=== PATIENT | female | born 1980 | race African-American/Black ===

== ENCOUNTER 2016-11-27 23:40 | Inpatient (IN) ==
[2016-11-28] MEDS ORDERED: ONDANSETRON 4 MG/2 ML VIAL IV STA (00:04)
[2016-11-28] MEDS ORDERED: FUROSEMIDE 100 MG/10 ML VIAL IV STA (00:04)
[2016-11-28] MEDS ORDERED: ALBUTEROL/IPRATROPIUM 3 ML NEB RESP TX STA (00:04)
--- NOTE | 2016-11-28 00:07 | Emergency Department Note ---
Arrival - Arrival Chief Complaint: Shortness of Breath Stated Complaint: sob ED Nursing Triage Note: TO ER WITH COMPLAINTS OF SHORTNESS OF BREATH FOR 2-3 WEEKS. PATIENT WAS SEEN BY PRIMARY DR WHEN SOB BEGAN AND JUST CHANGED HER MEDICATIONS. PATIENT REPORTS HAVING EDEMA IN BLE THAT STARTED 2-3 WEEKS AGO WELL. PATIENT HAS NOT NOTIFIED MD THAT SYMPTOMS REMAINED SINCE OFFICE VISIT AND MEDICATION CHANGE. Mode of Arrival: Wheelchair Limitations: No Limitations Source: Patient Time Seen by Provider: 11/28/16 00:04 - History of Present Illness HPI Narrative: This 36-year-old black female with a history of cardiomyopathy with ejection fraction 10% as well as an ICD presents with 3 weeks of progressive dyspnea on exertion and at rest associated with some chest tightness as well as orthopnea, PND, and 2+ pedal edema. The patient denies any nausea, vomiting, or diaphoresis in association with this. She has been seen by Dr. Erickson in the past but currently sees her local physician for these problems. At this time she appears in no acute medical distress. Onset (ago): week(s) (Patient presents 3 weeks post onset of symptom) Date of Last Menstrual Period: HYST Allergies/Adverse Reactions: Allergies Allergy/AdvReac Type Severity Reaction Status Date / Time No Known Allergies Allergy Verified 11/27/16 23:52 Home Medications: Home Medications Medication Instructions Recorded Confirmed Type Insulin Detemir [Levemir FlexPen] 35 unit SUBCUT TID 11/18/14 08/16/16 History Sacubitril/Valsartan [Entresto 24 1 each PO BID #60 tablet 07/17/16 08/16/16 Rx mg-26 mg Tablet] Amitriptyline [Elavil] 10 mg PO Q6H #12 tablet 08/16/16 Rx Digoxin Tab [Lanoxin Tab] 0.125 mg PO DAILY@1300 #30 tablet 08/16/16 Rx Furosemide [Lasix] 40 mg PO BID #60 tablet 08/16/16 Rx Metoprolol Tartrate Tab [Lopressor 100 mg PO BID #60 tablet 08/16/16 Rx Tab] Promethazine Tab [Phenergan Tab] 25 mg PO Q6H #12 tablet 08/16/16 Rx Spironolactone [Aldactone] 25 mg PO BID #60 tablet 08/16/16 Rx Review of System - Review of System 12 point system: reviewed and no additional remarkable complaints except as stated - Review of System Constitutional: Present: as per HPI Respiratory: Present: as per HPI Cardiovascular: Present: as per HPI Gastrointestinal: Present: as per HPI Medical,Surgical,& Family Hx - Medical History Cardio: History of: CHF (NICM systolic and diastolic HF NYHA III), Hypertension , Pacemaker, Cardiovascular Problems (Nonischemic cardiomyopathy with EF of 10% . Patient has ICD.) Psychological: History of: Psychiatric/Substance Abuse Tx Endocrine: History of: Diabetes Mellitus (IDDM), Endocrine Problems (Morbid exogenous obesity) Respiratory: History of: Obstructive Sleep Apnea Gastrointestinal: History of: Bowel Obstruction Other: History of: Miscellaneous Medical Problems - Surgical History Cardiac Surgeries: Sugical HX of: Cardiac Catheterization (no coronary artery disease at the time of establishing the diagnosis of CM), Internal Defibrillator (POULTRY PICKER-D) Neurologic Surgeries: Patient denies: Neurologic Surgery Abdominal Surgeries: Surgical HX of: Abdominal Surgery Reproductive Surgeries: Surgical HX of;: Section, Hysterectomy (partial ) Patient denies;: Genitourinary Surgery - Family History Family History: Reports;: Family Diabetes, Family Hypertension - Social History Smoking Status: Smoker, status unknown Frequency of Alcohol Use: None Type of Drug Use: None Exam Physical Examination: GENERAL: Obese black female in no acute distress. HEENT: Normocephalic. No trauma. Moist mucous membranes. EOMI. PERRLA. ENT NML NECK: Supple. No adenopathy. CARDIAC: Regular. No murmurs. Heart rate 102 CHEST: Rare bibasilar rale. No respiratory distress. O2 sat 98% ABDOMEN: Soft. Nontender. Active bowel sounds. EXTREMITIES: No trauma. Normal ROM. 2+ pedal edema. SKIN: No diaphoresis. No rash. NEURO: Alert. Neuro intact no focal deficits. Vital Signs: Vital Signs Temperature 98.1 F 11/27/16 23:43 Pulse Rate 100 H 11/28/16 01:07 Respiratory Rate 24 11/28/16 01:07 Blood Pressure 137/98 11/27/16 23:43 O2 Sat by Pulse Oximetry 100 11/28/16 01:07 Course - Reevaluation(s) Reevaluation #1: Discussed with patient the need for hospitalization for stabilization of cardiac condition. - Consultations Consultation #1: Discussed with hospitalist service who will admit for further evaluation treatment. Results - Labs CBC & BMP: 11/28/16 00:23 11/28/16 00:23 Labs: Reviewed the laboratory and noted the gross normality. - Impressions EKG: Sinus tachycardia at 104 with normal VT interval and right bundle branch with left and right atrial enlargement. Nonspecific ST changes without acute injury pattern noted. - Diagnostic Findings Procedure: Chest x-ray: image reviewed by me, report reviewed by me (Massive cardiomegaly with ICD device over left chest) Disposition Clinical Impression: Congestive heart failure, Cardiomyopathy Case discussed with: patient Disposition: Still a Patient Condition: Guarded Time of Disposition: 01:12
[2016-11-28] MEDS ORDERED: FUROSEMIDE 40 MG/4 ML VIAL ONE (00:36)
[2016-11-28] MEDS ORDERED: ONDANSETRON 4 MG/2 ML VIAL ONE (00:36)
[2016-11-28 00:52] LABS: INR 1.2; PT Patient Result 12.4 SECS; Partial Thromboplastin Time 27.1 SECS (0-40)
[2016-11-28 00:53] LABS: Basophils % 0.8 % (0.0-0.8); Eosinophils # 0.1 10*3/uL (0.0-0.87); Eosinophils % 2.5 % (0.00-10.9); Hematocrit 39.6 VOL% (35.7-47.0); Hemoglobin 13.3 GM/DL (12.0-16.0); Immature Granulocytes % 0.6 %; Immature Granulocytes Absolute 0.02 #; Lymphocytes # 1.7 10*3/uL (1.4-4.0); Mean Corpuscular HGB Conc 33.6 GM/DL (32-36); Mean Corpuscular Hemoglobin 29 PG (27-34); Mean Corpuscular Volume 86.7 FL (87-102); Mean Platelet Volume 10.6 FL (9.6-12.0); Monocytes # 0.4 10*3/uL (0.11-0.8); Monocytes % 10.6 % (1.7-12.7); Neutrophils # 1.3 10*3/uL (1.4-7.4); Neutrophils % 37.5 % (38.7-73.9); Platelet Count 140 T/CUMM (130-400); Red Blood Count 4.57 MC/CUMM (3.8-5.5); Red Cell Distribution Width 16.1 % (9.3-17.3); White Blood Count 3.6 T/CUMM (4-12)
[2016-11-28 01:09] LABS: Alanine Aminotransferase 24 U/L (13-56); Albumin 2.8 G/DL (3.4-5.0); Alkaline Phosphatase 106 U/L (45-117); Aspartate Amino Transferase 26 U/L (0-37); Blood Urea Nitrogen 15 MG/DL (7-18); Glucose 107 MG/DL (74-106); Osmolality,Calculated 281.3 MOS/KG (273-304); Potassium 3.9 MMOL/L (3.5-5.1); Sodium 141 MMOL/L (136-145); Total Protein 6.3 G/DL (6.4-8.3); Troponin I Only 0.021 NG/ML (0.00-0.045)
[2016-11-28 01:27] LABS: Apearance,Urine CLEAR (Clear); Bacteria,Urine Occasional /HPF (Few); Bilirubin,Urine Negative (Negative); Blood, Urine Negative (Negative); Glucose,Urine (UA) Negative (Negative); Ketones,Urine Negative (Negative); Mucus,Urine Occasional /LPF (Occasional); Nitrite,Urine Negative (Negative); Protein,Urine 100 MG/DL; RBC,Urine <1 /HPF (0-4); Squamous Epithelial Cell,Urine Occasional /HPF (0-10); Urine Color Yellow (Yellow); Urine Specific Gravity 1.011 (1.001-1.035); Urine Urobilinogen < 2.0 EU/DL (0.2-1.0); WBC,Urine 3 /HPF (0-6)
[2016-11-28 01:31] LABS: Barbiturates Screen,Urine Negative (Negative); Benzodiazepines Screen,Urine Negative (Negative); Cannabinoid Screen,Urine Negative (Negative); Opiate Screen,Urine Negative (Negative); Phencyclidine Screen,Urine Negative (Negative)
[2016-11-28] MEDS ORDERED: MAGNESIUM SULF RIDER 2 GM in PREMIX 1 EACH IV PRN (01:41)
[2016-11-28] MEDS ORDERED: MAGNESIUM SULF RIDER 4 GM in PREMIX 1 EACH IV PRN (01:41)
[2016-11-28] MEDS ORDERED: ONDANSETRON 4 MG/2 ML VIAL IV PRN (01:41)
[2016-11-28 01:43] LABS: Eosinophils 3 % (0-10); Lymphocytes 48 % (20-55); Segmented Neutrophils 36 % (50-85); Total Cells Counted 100
[2016-11-28 01:44] LABS: Platelet Estimate Normal
[2016-11-28] MEDS ORDERED: DEXTROSE 50% 25 GM/50 ML SYRINGE IV PRN (01:59)
[2016-11-28] MEDS ORDERED: GLUCAGON 1 MG VIAL IM PRN (01:59)
--- NOTE | 2016-11-28 02:12 | Hospitalist History & Physical ---
Assessment and Plan (1) Diabetes mellitus Status: Chronic Current Visit: No Qualifiers: Diabetes mellitus type: type 2 Diabetes mellitus complication status: without complication (2) H/O medication noncompliance Status: Chronic Current Visit: No (3) HTN (hypertension) Status: Chronic Current Visit: No Qualifiers: Hypertension type: essential hypertension Qualified Code(s): I10 - Essential (primary) hypertension (4) Nonischemic cardiomyopathy Status: Chronic Current Visit: No (5) Obesity (BMI 35.0-39.9 without comorbidity) Status: Chronic Current Visit: No (6) Presence of automatic (implantable) cardiac defibrillator Status: Chronic Assessment and plan: Patient is only on 2 medications plus insulin. This does not seem plausible given her bad cardiomyopathy. We will get a cis consult. They can get Dr. Erickson's notes and see what medications this patient is supposed to be on. I am going to continue with IV Lasix and monitor her labs. Hopefully we can get the patient some symptomatic relief. Current Visit: No History of Present Illness Chief complaint: Shortness of breath History of present illness: Ms. Espinal is a 36 year old female with past medical history significant for cardiomyopathy with an ejection fraction of 10% hypertension and diabetes who presents to our ER [facility]. Patient reports that she has become short of breath with the least exertion. She reports that this is on her normal state. She has PND symptoms routinely. She has not been able to sleep. She follows up with Dr. Erickson. And when she is saw him last she stated he did not renew a lot of her medications. She is only on 2 medications and insulin. I believe there is some confusion going on with her medications and could be contributing to her symptoms. Home Medications Medication Instructions Recorded Confirmed Type Sacubitril/Valsartan [Entresto 24 25 mg PO BID 11/28/16 11/28/16 History mg-26 mg Tablet] hydrALAZINE TAB [Apresoline Tab] 25 mg PO BID 11/28/16 11/28/16 History Allergies Allergy/AdvReac Type Severity Reaction Status Date / Time No Known Allergies Allergy Verified 11/27/16 23:52 Medical,Surgical,& Family Hx - Medical History Cardio: History of: CHF (NICM systolic and diastolic HF NYHA III), Hypertension , Pacemaker, Cardiovascular Problems (Nonischemic cardiomyopathy with EF of 10% . Patient has ICD.) Psychological: History of: Psychiatric/Substance Abuse Tx Endocrine: History of: Diabetes Mellitus (IDDM), Endocrine Problems (Morbid exogenous obesity) Respiratory: History of: Obstructive Sleep Apnea Gastrointestinal: History of: Bowel Obstruction Other: History of: Miscellaneous Medical Problems - Surgical History Cardiac Surgeries: Sugical HX of: Cardiac Catheterization (no coronary artery disease at the time of establishing the diagnosis of CM), Internal Defibrillator (TAPE DUPLICATOR-D) Neurologic Surgeries: Patient denies: Neurologic Surgery Abdominal Surgeries: Surgical HX of: Abdominal Surgery Reproductive Surgeries: Surgical HX of;: Section, Hysterectomy (partial ) Patient denies;: Genitourinary Surgery - Family History Family History: Reports;: Family Diabetes, Family Hypertension - Social History Smoking Status: Smoker, status unknown Frequency of Alcohol Use: None Type of Drug Use: None 12 point system: reviewed and no additional remarkable complaints except as stated Exam - Constitutional Vitals: Period Temp Pulse Resp BP Sys/Jaimes Pulse Ox Last 24 Hr 98.1 F-98.1 F 100-104 19-24 137-137/98-98 98-100 General appearance: over weight - Head Head exam: Present: normal inspection - Eye Eye exam: Present: EOMI Pupils: Present: ROSEMARY - ENT ENT exam: Present: normal exam - Neck Neck exam: Present: normal inspection - Respiratory Respiratory exam: Present: rales (Occasional) - Cardiovascular Cardiovascular exam: Present: regular rate and rhythm - GI/Abdominal GI/Abdominal exam: Present: normal bowel sounds - Extremities Exam Extremities exam: Present: edema - Back Exam Back exam: Present: normal inspection - Neurological Exam Neurological exam: Present: alert, oriented X3 - Psychiatric Psychiatric exam: Present: normal affect Results - Labs CBC & BMP: 11/28/16 00:23 11/28/16 00:23
--- NOTE | 2016-11-28 06:46 | XRay Report ---
Exam: XR chest 1V portable Date: 11/28/2016 12:04 AM Indication: Shortness of breath Comparison: 08/16/2016 Technical: AP portable Findings: Cardiomegaly is present with a cardiac pacing device with implantable defibrillator leads with atrial ventricular and coronary sinus lead suspected. No pneumothorax. Low volume left effusion cannot be totally excluded. Bony structures are intact. Impression: 1. Dilated cardiomyopathy with probable component of low volume left effusion and cardiac implantable defibrillator pacing device from a left-sided approach. Overall findings appear similar to previous study PROCEDURE INTERPRETED AT [facility] DEPARTMENT OF RADIOLOGY Final Report Signed by: Dr. Avery Santana
[2016-11-28 07:43] LABS: Basophils % 0.8 % (0.0-0.8); Eosinophils # 0.1 10*3/uL (0.0-0.87); Eosinophils % 1.4 % (0.00-10.9); Hematocrit 39.7 VOL% (35.7-47.0); Immature Granulocytes % 0.3 %; Immature Granulocytes Absolute 0.01 #; Lymphocytes % 55.6 % (21.3-54.2); Mean Corpuscular HGB Conc 32.7 GM/DL (32-36); Mean Corpuscular Hemoglobin 29 PG (27-34); Mean Platelet Volume 10.5 FL (9.6-12.0); Monocytes # 0.4 10*3/uL (0.11-0.8); Monocytes % 12.1 % (1.7-12.7); Neutrophils # 1.1 10*3/uL (1.4-7.4); Neutrophils % 29.8 % (38.7-73.9); Platelet Count 128 T/CUMM (130-400); Red Blood Count 4.51 MC/CUMM (3.8-5.5); White Blood Count 3.7 T/CUMM (4-12)
--- NOTE | 2016-11-28 07:59 | EKG Report ---
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
[2016-11-28 08:10] LABS: Hypochromasia Slight
[2016-11-28 08:17] LABS: Albumin 2.7 G/DL (3.4-5.0); Osmolality,Calculated 284.1 MOS/KG (273-304); Total Protein 6.1 G/DL (6.4-8.3)
[2016-11-28 08:25] LABS: Troponin I Only 0.018 NG/ML (0.00-0.045)
[2016-11-28] MEDS: FUROSEMIDE 40 MG/4 ML VIAL IV SCH ×2 (09:50→16:59)
[2016-11-28] MEDS: ACETAMINOPHEN 325 MG TABLET PO PRN ×2 (09:50→15:43)
[2016-11-28] MEDS: ENOXAPARIN 40 MG/0.4 ML SYRINGE SUBCUT SCH (09:50)
[2016-11-28] MEDS: PANTOPRAZOLE 40 MG TABLET PO SCH (09:51)
[2016-11-28] MEDS: hydrALAZINE 25 MG TABLET PO SCH ×2 (09:51→20:58)
[2016-11-28] MEDS: INSULIN REGULAR 100 UNIT/ML SUBCUT SCH ×4 (09:52→21:41)
--- NOTE | 2016-11-28 10:07 | Cardiology Consult Note ---
<Keren Davey - Last Filed: 11/28/16 12:42> Assessment and Plan - Time spent with patient Time spent with patient: Greater than 30 minutes (1) CHF (congestive heart failure), NYHA class III Status: Acute Assessment and plan: See plan of care below Current Visit: Yes Qualifiers: Congestive heart failure type: combined Congestive heart failure chronicity : acute on chronic Qualified Code(s): - (2) Diabetes mellitus Status: Chronic Assessment and plan: See plan of care below Current Visit: No Qualifiers: Diabetes mellitus type: type 2 Diabetes mellitus complication status: without complication (3) HTN (hypertension) Status: Chronic Assessment and plan: See plan of care below Current Visit: No Qualifiers: Hypertension type: essential hypertension Qualified Code(s): I10 - Essential (primary) hypertension (4) Nonischemic cardiomyopathy Status: Chronic Assessment and plan: The plan of care below Current Visit: Yes (5) Biventricular implantable cardioverter-defibrillator in situ Status: Chronic Assessment and plan: See plan of care below Current Visit: No (6) H/O medication noncompliance Status: Chronic Current Visit: Yes (7) Obesity (BMI 35.0-39.9 without comorbidity) Status: Chronic Assessment and plan: See plan of care below Current Visit: No History of Present Illness - Data of Consult Patient: known to practice within the last 3 years - Consult Narrative Reason for consult: worsened dyspnea in patient with known severe cardiomyopathy 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 Espinal is a 36 year old female routinely followed by Dr. Vasquez. The patient presented to the emergency room last night with complaints of worsening shortness of breath. Cardiac risk factors are significant for hypertension, diabetes, obesity, and history of smoking. The patient does state that she did quit smoking about 1 year ago. Patient has a history of nonischemic cardiomyopathy (most recent EF 15%), obstructive sleep apnea, automatic implantable cardiac defibrillator and noncompliance with medical treatment. Patient did see Dr. Vasquez on November 13, 2016, and medication changes are noted. The patient states that she has been out of her digoxin for 3-4 days. At that clinic visit the patient was instructed to stop taking lisinopril and start Entresto. The patient states that she has been compliant with these medication changes. The ICD was interrogated at that visit. The patient remains a NYHA class III cardiomyopathy. Most recent echo was done June 2016. The study revealed left ventricular ejection fraction of 10% with severe global hypokinesis was noted. Grade 3-4 diastolic dysfunction with four-chamber cardiac enlargement is noted. Patient presented to the emergency room during the night with complaints of shortness of breath that were more severe than her normal. She reports that her breathing has progressively worsened over the last 2 weeks. She cannot identify aggravating or alleviating factors. She also reports bilateral lower extremity edema. Patient notes that she has not slept in several nights due to not being able to catch her breath. She does report that she often awakens during the night gasping for air. She does not use a CPAP. Patient denies chest pain, she does report some chest heaviness when her dyspnea is severe. She denies heart palpitations or heart racing. Her BNP upon arrival to the ER was 932 chest x-ray reveals dilated cardiomyopathy with cardiac implantable defibrillator pacing device on the left side. Troponin 0.018 and CK-MB 1.8. EKG reveals a paced rhythm with no ST changes. The patient did receive 80 mg of Lasix IV in the ER, and will be continued on 40 mg of Lasix IV twice daily. The patient has been admitted to the hospitalist service on telemetry, and cardiology has been consulted for further recommendations and treatment regarding the patient's severe nonischemic cardiomyopathy. The patient was seen and examined today by myself and Dr. Rhonda Brooks on telemetry unit. Patient was resting comfortably in bed in no acute distress. Patient was not requiring oxygen. Patient denying complaints of chest pain heaviness or shortness of breath at that time. We will continue IV Lasix, check a d-dimer, obtain bilateral lower extremity Doppler, and repeat echocardiogram. ASSESSMENT/PLAN: 1. CHF- Echocardiogram pending. Lasix 80 mg IV given in ER. Continue 40 mg Lasix IV twice daily. D-dimer negative and bilateral lower extremity venous Doppler pending from bilateral lower extremity edema. 2. Diabetes- She has been started on Accu-Cheks with sliding scale insulin. 3. Hypertension- Continue home meds. Will continue to monitor and adjust accordingly throughout hospital stay. 4. Nonischemic cardiomyopathy-most recent ejection fraction 10%. Echocardiogram pending. 5. Biventricular implantable cardioverter-defibrillator in situ: Last interrogation done November 13, 2016 revealed appropriate function. 6. History of medication noncompliance- Chronic. Educate patient. 7. Obesity- Chronic. Weight loss encouraged with dietary restriction. CC: Lorin Salinas MD - Home Medications and Allergies Home Medications: Home Medications Medication Instructions Recorded Confirmed Type Digoxin 250 mcg PO DAILY 11/28/16 11/28/16 History Furosemide Tab [Lasix Tab] 40 mg PO BID DIURETIC 11/28/16 11/28/16 History Insulin Detemir [Levemir] 30 unit SUBCUT BID 11/28/16 11/28/16 History Lisinopril 40 mg PO DAILY 11/28/16 11/28/16 History Sacubitril/Valsartan [Entresto 24 1 tablet PO BID 11/28/16 11/28/16 History mg-26 mg Tablet] Spironolactone [Aldactone] 25 mg PO DAILY 11/28/16 11/28/16 History hydrALAZINE TAB [Apresoline Tab] 25 mg PO BID 11/28/16 11/28/16 History Allergies/Adverse Reactions: Allergies Allergy/AdvReac Type Severity Reaction Status Date / Time No Known Allergies Allergy Verified 11/27/16 23:52 - Constitutional Constitutional: Present: as per HPI - EENT Eyes: Present: as per HPI Ears: Present: as per HPI Nose, mouth and throat: Present: as per HPI - Cardiovascular Cardiovascular: Present: dyspnea on exertion, edema - Respiratory Respiratory: Present: cough, dyspnea on exertion, wheezing - Gastrointestinal Gastrointestinal: Present: constipation. Absent: abdominal pain, change in bowel habits, diarrhea, nausea, vomiting - Genitourinary Genitourinary: Present: as per HPI - Musculoskeletal Musculoskeletal: Present: as per HPI - Neurological Neurological: Present: dizziness. Absent: abnormal gait, frequent falls, syncope Medical,Surgical,& Family Hx - Medical History Cardio: History of: CHF (NICM systolic and diastolic HF NYHA III), Hypertension , Pacemaker, Cardiovascular Problems (Nonischemic cardiomyopathy with EF of 10% . 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 CARVER-D) Neurologic Surgeries: Patient denies: Neurologic Surgery Abdominal Surgeries: Surgical HX of: Abdominal Surgery Reproductive Surgeries: Surgical HX of;: Section, Hysterectomy (partial ) Patient denies;: Genitourinary Surgery - Family History Family History: Reports;: Family Diabetes, Family Hypertension - Social History Smoking Status: Former smoker Have you smoked in the last 12 months: No Frequency of Alcohol Use: None Type of Drug Use: None Functional capacity: independent ambulation Physical Examination Vital Signs Temp Pulse Resp BP Pulse Ox 98.1 F 104 H 20 137/98 98 11/27/16 23:43 11/27/16 23:43 11/27/16 23:43 11/27/16 23:43 11/27/16 23:43 General: Present: No Apparent Distress HEENT: Present: PERRL Cardiac: Present: Reg Rate and Rhythm, Other Lungs: Present: Bibasilar Rales, No Wheezes Abdomen: Present: Soft, Active Bowel Sounds, No Masses Skin: Present: Clear Gait: Present: Normal Gait Result/EKG - Labs CBC & BMP: 11/28/16 07:02 11/28/16 11:10 Lab Results: I have reviewed the past 24 hour labs Labs: Laboratory Results - last 24 hr 11/28/16 11/28/16 11/28/16 00:23 00:23 00:23 WBC 3.6 L RBC 4.57 Hgb 13.3 Hct 39.6 MCV 86.7 L MCH 29 MCHC 33.6 RDW 16.1 Plt Count 140 MPV 10.6 Neut % (Auto) 37.5 L Lymph % (Auto) 48.0 [place] % (Auto) 10.6 Eos % (Auto) 2.5 Baso % (Auto) 0.8 Neut # (Auto) 1.3 L Lymph # (Auto) 1.7 [place] # (Auto) 0.4 Eos # (Auto) 0.1 Baso # (Auto) 0.0 Total Counted 100 Immature Gran % 0.6 Nucleated RBC % 0.0 Immature Gran # 0.02 Segmented Neutrophils 36 L Lymphocytes 48 Monocytes 13 Eosinophils 3 Nucleated RBCs # 0.00 Platelet Estimate Normal Immature Plt Fraction 0.0 Hypochromasia Pappenheimer Bodies Contact Center Director INR 1.2 PT Patient/Control Mix 12.4 Circ Anticoag PTT 27.1 Sodium Potassium Chloride Carbon Dioxide Anion Gap BUN Creatinine GFR Calculation BUN/Creatinine Ratio Glucose Calculated Osmolality Calcium Total Bilirubin AST ALT Alkaline Phosphatase Total Creatine Kinase CK-MB (CK-2) Troponin I B-Natriuretic Peptide Total Protein Albumin Globulin Albumin/Globulin Ratio Urine Color Yellow Urine Appearance Clear Urine pH 5.0 Ur Specific [place] 1.011 Urine Protein 100 Urine Glucose (UA) Negative Urine Ketones Negative Urine Blood Negative Urine Nitrate Negative Urine Bilirubin Negative Urine Urobilinogen < 2.0 H Urine Leukocytes Negative Urine RBC <1 Urine WBC 3 Ur Squamous Epith Cells Occasional Urine Bacteria Occasional Urine Mucus Occasional Ur Culture Indicated? Not indicated Urine Opiates Screen Ur Barbiturates Screen Ur Phencyclidine Scrn U Amphetamine/Methamph U Benzodiazepines Scrn U Cocaine Metab Screen U Cannabinoids Screen 11/28/16 11/28/16 11/28/16 00:23 00:23 00:23 WBC RBC Hgb Hct MCV MCH MCHC RDW Plt Count MPV Neut % (Auto) Lymph % (Auto) [place] % (Auto) Eos % (Auto) Baso % (Auto) Neut # (Auto) Lymph # (Auto) [place] # (Auto) Eos # (Auto) Baso # (Auto) Total Counted Immature Gran % Nucleated RBC % Immature Gran # Segmented Neutrophils Lymphocytes Monocytes Eosinophils Nucleated RBCs # Platelet Estimate Immature Plt Fraction Hypochromasia Pappenheimer Bodies INR PT Patient/Control Mix Circ Anticoag PTT Sodium 141 Potassium 3.9 Chloride 108 H Carbon Dioxide 26 Anion Gap 10.9 BUN 15 Creatinine 0.80 GFR Calculation 149 BUN/Creatinine Ratio 18.00 Glucose 107 H Calculated Osmolality 281.3 Calcium 8.0 L Total Bilirubin 0.60 AST 26 ALT 24 Alkaline Phosphatase 106 Total Creatine Kinase 101 CK-MB (CK-2) 2.0 Troponin I 0.021 B-Natriuretic Peptide 932 H Total Protein 6.3 L Albumin 2.8 L Globulin 3.5 Albumin/Globulin Ratio 0.8 L Urine Color Urine Appearance Urine pH Ur Specific [place] Urine Protein Urine Glucose (UA) Urine Ketones Urine Blood Urine Nitrate Urine Bilirubin Urine Urobilinogen Urine Leukocytes Urine RBC Urine WBC Ur Squamous Epith Cells Urine Bacteria Urine Mucus Ur Culture Indicated? Urine Opiates Screen Negative Ur Barbiturates Screen Negative Ur Phencyclidine Scrn Negative U Amphetamine/Methamph Negative U Benzodiazepines Scrn Negative U Cocaine Metab Screen Negative U Cannabinoids Screen Negative 11/28/16 11/28/16 11/28/16 07:02 07:02 07:02 WBC 3.7 L RBC 4.51 Hgb 13.0 Hct 39.7 MCV 88.0 MCH 29 MCHC 32.7 RDW 16.0 Plt Count 128 L MPV 10.5 Neut % (Auto) 29.8 L Lymph % (Auto) 55.6 H [place] % (Auto) 12.1 Eos % (Auto) 1.4 Baso % (Auto) 0.8 Neut # (Auto) 1.1 L Lymph # (Auto) 2.0 [place] # (Auto) 0.4 Eos # (Auto) 0.1 Baso # (Auto) 0.0 Total Counted Immature Gran % 0.3 Nucleated RBC % 0.0 Immature Gran # 0.01 Segmented Neutrophils Lymphocytes Monocytes Eosinophils Nucleated RBCs # 0.00 Platelet Estimate Immature Plt Fraction 0.0 Hypochromasia Slight Pappenheimer Bodies INR PT Patient/Control Mix Circ Anticoag PTT Sodium 142 Potassium 4.0 Chloride 105 Carbon Dioxide 28 Anion Gap 13.0 BUN 14 Creatinine 0.90 GFR Calculation 131 BUN/Creatinine Ratio 15.00 Glucose 115 H Calculated Osmolality 284.1 Calcium 8.0 L Total Bilirubin 1.00 AST 27 ALT 21 Alkaline Phosphatase 96 Total Creatine Kinase 86 CK-MB (CK-2) 1.8 Troponin I 0.018 B-Natriuretic Peptide Total Protein 6.1 L Albumin 2.7 L Globulin 3.4 Albumin/Globulin Ratio 0.7 L Urine Color Urine Appearance Urine pH Ur Specific [place] Urine Protein Urine Glucose (UA) Urine Ketones Urine Blood Urine Nitrate Urine Bilirubin Urine Urobilinogen Urine Leukocytes Urine RBC Urine WBC Ur Squamous Epith Cells Urine Bacteria Urine Mucus Ur Culture Indicated? Urine Opiates Screen Ur Barbiturates Screen Ur Phencyclidine Scrn U Amphetamine/Methamph U Benzodiazepines Scrn U Cocaine Metab Screen U Cannabinoids Screen - Diagnostic Findings Procedure: Chest x-ray: report reviewed by me - EKG EKG results: interpreted by me, no acute changes <Rhonda Brooks - Last Filed: 11/28/16 17:35> History of Present Illness - Consult Narrative History of present illness: I have personally interviewed and evaluated the patient, reviewed the chart and discussed medical decision-making with Practitioner Petar. I have read this note and agree with her documentation here in. We evaluated the patient jointly and discussed the clinical findings and medical decision-making as described here. CC: Lorin Salinas MD Physical Examination Vital Signs Temp Pulse Resp BP Pulse Ox 98.1 F 104 H 20 137/98 98 11/27/16 23:43 11/27/16 23:43 11/27/16 23:43 11/27/16 23:43 11/27/16 23:43 Result/EKG - Labs CBC & BMP: 11/28/16 07:02 11/28/16 11:10 Labs: Laboratory Results - last 24 hr 11/28/16 11/28/16 11/28/16 00:23 00:23 00:23 WBC 3.6 L RBC 4.57 Hgb 13.3 Hct 39.6 MCV 86.7 L MCH 29 MCHC 33.6 RDW 16.1 Plt Count 140 MPV 10.6 Neut % (Auto) 37.5 L Lymph % (Auto) 48.0 [place] % (Auto) 10.6 Eos % (Auto) 2.5 Baso % (Auto) 0.8 Neut # (Auto) 1.3 L Lymph # (Auto) 1.7 [place] # (Auto) 0.4 Eos # (Auto) 0.1 Baso # (Auto) 0.0 Total Counted 100 Immature Gran % 0.6 Nucleated RBC % 0.0 Immature Gran # 0.02 Segmented Neutrophils 36 L Lymphocytes 48 Monocytes 13 Eosinophils 3 Nucleated RBCs # 0.00 Platelet Estimate Normal Immature Plt Fraction 0.0 Hypochromasia Pappenheimer Bodies Contact Center Director INR 1.2 PT Patient/Control Mix 12.4 D-Dimer, Quantitative Circ Anticoag PTT 27.1 ABG pH ABG pCO2 ABG pO2 ABG HCO3 ABG Total CO2 ABG O2 Saturation ABG Base Excess FiO2 Sodium Potassium Chloride Carbon Dioxide Anion Gap BUN Creatinine GFR Calculation BUN/Creatinine Ratio Glucose POC Glucose Hemoglobin A1c Calculated Osmolality Calcium Total Bilirubin AST ALT Alkaline Phosphatase Ammonia Total Creatine Kinase CK-MB (CK-2) Troponin I B-Natriuretic Peptide Total Protein Albumin Globulin Albumin/Globulin Ratio Urine Color Yellow Urine Appearance Clear Urine pH 5.0 Ur Specific [place] 1.011 Urine Protein 100 Urine Glucose (UA) Negative Urine Ketones Negative Urine Blood Negative Urine Nitrate Negative Urine Bilirubin Negative Urine Urobilinogen < 2.0 H Urine Leukocytes Negative Urine RBC <1 Urine WBC 3 Ur Squamous Epith Cells Occasional Urine Bacteria Occasional Urine Mucus Occasional Ur Culture Indicated? Not indicated Urine Opiates Screen Ur Barbiturates Screen Ur Phencyclidine Scrn U Amphetamine/Methamph U Benzodiazepines Scrn U Cocaine Metab Screen U Cannabinoids Screen 11/28/16 11/28/16 11/28/16 00:23 00:23 00:23 WBC RBC Hgb Hct MCV MCH MCHC RDW Plt Count MPV Neut % (Auto) Lymph % (Auto) [place] % (Auto) Eos % (Auto) Baso % (Auto) Neut # (Auto) Lymph # (Auto) [place] # (Auto) Eos # (Auto) Baso # (Auto) Total Counted Immature Gran % Nucleated RBC % Immature Gran # Segmented Neutrophils Lymphocytes Monocytes Eosinophils Nucleated RBCs # Platelet Estimate Immature Plt Fraction Hypochromasia Pappenheimer Bodies INR PT Patient/Control Mix D-Dimer, Quantitative Circ Anticoag PTT ABG pH ABG pCO2 ABG pO2 ABG HCO3 ABG Total CO2 ABG O2 Saturation ABG Base Excess FiO2 Sodium 141 Potassium 3.9 Chloride 108 H Carbon Dioxide 26 Anion Gap 10.9 BUN 15 Creatinine 0.80 GFR Calculation 149 BUN/Creatinine Ratio 18.00 Glucose 107 H POC Glucose Hemoglobin A1c Calculated Osmolality 281.3 Calcium 8.0 L Total Bilirubin 0.60 AST 26 ALT 24 Alkaline Phosphatase 106 Ammonia Total Creatine Kinase 101 CK-MB (CK-2) 2.0 Troponin I 0.021 B-Natriuretic Peptide 932 H Total Protein 6.3 L Albumin 2.8 L Globulin 3.5 Albumin/Globulin Ratio 0.8 L Urine Color Urine Appearance Urine pH Ur Specific [place] Urine Protein Urine Glucose (UA) Urine Ketones Urine Blood Urine Nitrate Urine Bilirubin Urine Urobilinogen Urine Leukocytes Urine RBC Urine WBC Ur Squamous Epith Cells Urine Bacteria Urine Mucus Ur Culture Indicated? Urine Opiates Screen Negative Ur Barbiturates Screen Negative Ur Phencyclidine Scrn Negative U Amphetamine/Methamph Negative U Benzodiazepines Scrn Negative U Cocaine Metab Screen Negative U Cannabinoids Screen Negative 11/28/16 11/28/16 11/28/16 06:59 07:02 07:02 WBC 3.7 L RBC 4.51 Hgb 13.0 Hct 39.7 MCV 88.0 MCH 29 MCHC 32.7 RDW 16.0 Plt Count 128 L MPV 10.5 Neut % (Auto) 29.8 L Lymph % (Auto) 55.6 H [place] % (Auto) 12.1 Eos % (Auto) 1.4 Baso % (Auto) 0.8 Neut # (Auto) 1.1 L Lymph # (Auto) 2.0 [place] # (Auto) 0.4 Eos # (Auto) 0.1 Baso # (Auto) 0.0 Total Counted Immature Gran % 0.3 Nucleated RBC % 0.0 Immature Gran # 0.01 Segmented Neutrophils Lymphocytes Monocytes Eosinophils Nucleated RBCs # 0.00 Platelet Estimate Immature Plt Fraction 0.0 Hypochromasia Slight Pappenheimer Bodies INR PT Patient/Control Mix D-Dimer, Quantitative Circ Anticoag PTT ABG pH ABG pCO2 ABG pO2 ABG HCO3 ABG Total CO2 ABG O2 Saturation ABG Base Excess FiO2 Sodium 142 Potassium 4.0 Chloride 105 Carbon Dioxide 28 Anion Gap 13.0 BUN 14 Creatinine 0.90 GFR Calculation 131 BUN/Creatinine Ratio 15.00 Glucose 115 H POC Glucose Hemoglobin A1c 6.6 H Calculated Osmolality 284.1 Calcium 8.0 L Total Bilirubin 1.00 AST 27 ALT 21 Alkaline Phosphatase 96 Ammonia Total Creatine Kinase CK-MB (CK-2) Troponin I B-Natriuretic Peptide Total Protein 6.1 L Albumin 2.7 L Globulin 3.4 Albumin/Globulin Ratio 0.7 L Urine Color Urine Appearance Urine pH Ur Specific [place] Urine Protein Urine Glucose (UA) Urine Ketones Urine Blood Urine Nitrate Urine Bilirubin Urine Urobilinogen Urine Leukocytes Urine RBC Urine WBC Ur Squamous Epith Cells Urine Bacteria Urine Mucus Ur Culture Indicated? Urine Opiates Screen Ur Barbiturates Screen Ur Phencyclidine Scrn U Amphetamine/Methamph U Benzodiazepines Scrn U Cocaine Metab Screen U Cannabinoids Screen 11/28/16 11/28/16 11/28/16 07:02 08:51 09:40 WBC RBC Hgb Hct MCV MCH MCHC RDW Plt Count MPV Neut % (Auto) Lymph % (Auto) [place] % (Auto) Eos % (Auto) Baso % (Auto) Neut # (Auto) Lymph # (Auto) [place] # (Auto) Eos # (Auto) Baso # (Auto) Total Counted Immature Gran % Nucleated RBC % Immature Gran # Segmented Neutrophils Lymphocytes Monocytes Eosinophils Nucleated RBCs # Platelet Estimate Immature Plt Fraction Hypochromasia Pappenheimer Bodies INR PT Patient/Control Mix D-Dimer, Quantitative Circ Anticoag PTT ABG pH 7.379 ABG pCO2 46.7 ABG pO2 86.5 ABG HCO3 25.9 ABG Total CO2 24.2 ABG O2 Saturation 95.9 ABG Base Excess 1.8 FiO2 28.00 Sodium Potassium Chloride Carbon Dioxide Anion Gap BUN Creatinine GFR Calculation BUN/Creatinine Ratio Glucose POC Glucose 169 H Hemoglobin A1c Calculated Osmolality Calcium Total Bilirubin AST ALT Alkaline Phosphatase Ammonia Total Creatine Kinase 86 CK-MB (CK-2) 1.8 Troponin I 0.018 B-Natriuretic Peptide Total Protein Albumin Globulin Albumin/Globulin Ratio Urine Color Urine Appearance Urine pH Ur Specific [place] Urine Protein Urine Glucose (UA) Urine Ketones Urine Blood Urine Nitrate Urine Bilirubin Urine Urobilinogen Urine Leukocytes Urine RBC Urine WBC Ur Squamous Epith Cells Urine Bacteria Urine Mucus Ur Culture Indicated? Urine Opiates Screen Ur Barbiturates Screen Ur Phencyclidine Scrn U Amphetamine/Methamph U Benzodiazepines Scrn U Cocaine Metab Screen U Cannabinoids Screen 11/28/16 11/28/16 11/28/16 11:10 11:10 13:06 WBC RBC Hgb Hct MCV MCH MCHC RDW Plt Count MPV Neut % (Auto) Lymph % (Auto) [place] % (Auto) Eos % (Auto) Baso % (Auto) Neut # (Auto) Lymph # (Auto) [place] # (Auto) Eos # (Auto) Baso # (Auto) Total Counted Immature Gran % Nucleated RBC % Immature Gran # Segmented Neutrophils Lymphocytes Monocytes Eosinophils Nucleated RBCs # Platelet Estimate Immature Plt Fraction Hypochromasia Pappenheimer Bodies INR PT Patient/Control Mix D-Dimer, Quantitative <= 0.5 Circ Anticoag PTT ABG pH ABG pCO2 ABG pO2 ABG HCO3 ABG Total CO2 ABG O2 Saturation ABG Base Excess FiO2 Sodium 141 Potassium 3.9 Chloride 105 Carbon Dioxide 29 Anion Gap 10.9 BUN 15 Creatinine 1.00 GFR Calculation 115 BUN/Creatinine Ratio 15.00 Glucose 126 H POC Glucose 102 Hemoglobin A1c Calculated Osmolality 283.3 Calcium 7.9 L Total Bilirubin AST ALT Alkaline Phosphatase Ammonia Total Creatine Kinase CK-MB (CK-2) Troponin I B-Natriuretic Peptide Total Protein Albumin Globulin Albumin/Globulin Ratio Urine Color Urine Appearance Urine pH Ur Specific [place] Urine Protein Urine Glucose (UA) Urine Ketones Urine Blood Urine Nitrate Urine Bilirubin Urine Urobilinogen Urine Leukocytes Urine RBC Urine WBC Ur Squamous Epith Cells Urine Bacteria Urine Mucus Ur Culture Indicated? Urine Opiates Screen Ur Barbiturates Screen Ur Phencyclidine Scrn U Amphetamine/Methamph U Benzodiazepines Scrn U Cocaine Metab Screen U Cannabinoids Screen 11/28/16 11/28/16 15:49 16:19 WBC RBC Hgb Hct MCV MCH MCHC RDW Plt Count MPV Neut % (Auto) Lymph % (Auto) [place] % (Auto) Eos % (Auto) Baso % (Auto) Neut # (Auto) Lymph # (Auto) [place] # (Auto) Eos # (Auto) Baso # (Auto) Total Counted Immature Gran % Nucleated RBC % Immature Gran # Segmented Neutrophils Lymphocytes Monocytes Eosinophils Nucleated RBCs # Platelet Estimate Immature Plt Fraction Hypochromasia Pappenheimer Bodies INR PT Patient/Control Mix D-Dimer, Quantitative Circ Anticoag PTT ABG pH ABG pCO2 ABG pO2 ABG HCO3 ABG Total CO2 ABG O2 Saturation ABG Base Excess FiO2 Sodium Potassium Chloride Carbon Dioxide Anion Gap BUN Creatinine GFR Calculation BUN/Creatinine Ratio Glucose POC Glucose 140 H Hemoglobin A1c Calculated Osmolality Calcium Total Bilirubin AST ALT Alkaline Phosphatase Ammonia 42 H Total Creatine Kinase CK-MB (CK-2) Troponin I B-Natriuretic Peptide Total Protein Albumin Globulin Albumin/Globulin Ratio Urine Color Urine Appearance Urine pH Ur Specific [place] Urine Protein Urine Glucose (UA) Urine Ketones Urine Blood Urine Nitrate Urine Bilirubin Urine Urobilinogen Urine Leukocytes Urine RBC Urine WBC Ur Squamous Epith Cells Urine Bacteria Urine Mucus Ur Culture Indicated? Urine Opiates Screen Ur Barbiturates Screen Ur Phencyclidine Scrn U Amphetamine/Methamph U Benzodiazepines Scrn U Cocaine Metab Screen U Cannabinoids Screen
[2016-11-28 10:13] LABS: ABG Base Excess 1.8 MMOL/L (-2.5-2.5); ABG HCO3 25.9 MMOL/L (20-26); ABG Oxygen Saturation 95.9 % (95-100); ABG PCO2 46.7 MM HG (35-48); ABG PH 7.379 (7.35-7.45); ABG PO2 86.5 MM HG (80-95); ABG TCO2 24.2 MMOL/L (23-27); Allen Test Positive; Pt O2 Delivery Device Room Air
[2016-11-28 11:50] LABS: Calcium 7.9 MG/DL (8.5-10.1); Osmolality,Calculated 283.3 MOS/KG (273-304); Potassium 3.9 MMOL/L (3.5-5.1)
--- NOTE | 2016-11-28 15:04 | Ultrasound Report ---
US venous doppler LE BI Indication: Bilateral leg edema. BILATERAL LOWER EXTREMITY VENOUS ULTRASOUND Comparison: None Findings: Graded grayscale compression, color Doppler and pulsed Doppler ultrasound evaluation of the venous structures performed. Normal compressibility, augmentation and color saturation is present within bilateral common femoral, superficial femoral, popliteal and proximal greater saphenous veins. Impression: No evidence of DVT either lower extremity. PROCEDURE INTERPRETED AT [facility] DEPARTMENT OF RADIOLOGY Final Report Signed by: David Beal M.D.
--- NOTE | 2016-11-28 15:26 | Hospitalist Progress Note ---
Assessment and Plan (1) Systolic and diastolic CHF, acute on chronic Status: Acute Assessment and plan: Continue Lasix 40 mg IV twice daily, added coreg, restarted sacubitril/ valsartan Current Visit: Yes (2) Diabetes mellitus Status: Chronic Assessment and plan: decrease home insulin, hgb a1c, cont isc Current Visit: No Qualifiers: Diabetes mellitus type: type 2 Diabetes mellitus complication status: without complication (3) HTN (hypertension) Status: Chronic Assessment and plan: controlled Current Visit: No Qualifiers: Hypertension type: essential hypertension Qualified Code(s): I10 - Essential (primary) hypertension (4) Nonischemic cardiomyopathy Status: Chronic Assessment and plan: ef of 10% Current Visit: Yes (5) Biventricular implantable cardioverter-defibrillator in situ Status: Chronic Current Visit: No (6) Pulmonary HTN Status: Acute Assessment and plan: pap of 53, negative for dvt, needs sleep evaluation Current Visit: Yes (7) CHARLIE (obstructive sleep apnea) Status: Acute Assessment and plan: dr. Ramos consulted. co2 not elevated on abg Current Visit: Yes Hospitalist: Subjective Interval history: patient very sleepy and has history of noncompliance. Exam - Constitutional Vitals: Period Temp Pulse Resp BP Sys/Jaimes Pulse Ox Last 24 Hr 97.4 F-98.7 F 90-107 18-24 124-137/80-98 94-100 Exam: Heart Rate-[tachy] Lungs-[diminished, not taking deep breaths] GI-[+bs soft, NT] Ext-[2+ edema] Neuro lethargic psych cannot assess General [no acute distress] Results - Labs CBC & BMP: 11/28/16 07:02 11/28/16 11:10 Lab Results: I have reviewed the past 24 hour labs - Diagnostic Findings Procedure: Chest x-ray: report reviewed by me (Dilated cardiomyopathy no excessive amount of fluid found), Ultrasound: report reviewed by me (No DVT)
[2016-11-28] MEDS: DIGOXIN 0.25 MG TABLET PO SCH (16:59)
[2016-11-28] MEDS: SPIRONOLACTONE 25 MG TABLET PO SCH (16:59)
--- NOTE | 2016-11-28 20:02 | ECHO Report ---
TeddyAngel Exam Date: 11/28/2016 11:25 Referring Physician: Technologist: angel Small ARDMS, RVT Age: 36 Ht (in): 68 Wt (lb): 275 Gender: F Exam Location: [facility] Echo Indications: Essential (primary) hypertension, Shortness of breath, Presence of automatic (implantable) cardiac defibrillator, Cardiomyopathy, unspecified, Diabetes BP: 128 / 84 HR: 97 Rhythm: Sinus Technical Quality: Fair IMPRESSIONS Severely reduced LV systolic function with regional wall motion as described below. Grade 3/4 diastolic dysfunction. Severely dilated left ventricle. Moderate right ventricular dilation with mild hypokinesis. Trace mitral regurgitation. Mild to moderate tricuspid and pulmonary regurgitation. Mild pulmonary hypertension with pulmonary artery pressure estimated at 46 mmHg. MEASUREMENTS (Male / Female) Normal Values 2D ECHO LV Diastolic Diameter PLAX 7.1 cm 4.2 - 5.9 / 3.9 - 5.3 cm LV Systolic Diameter PLAX 6.7 cm LV Fractional Shortening PLAX 4.9 % IVS Diastolic Thickness 0.9 cm 0.6 - 1.0 / 0.6 - 0.9 cm LVPW Diastolic Thickness 1.0 cm 0.6 - 1.0 / 0.6 - 0.9 cm RV Internal Dim ED PLAX 4.0 cm Aortic Root Diameter 3.5 cm LA Systolic Diameter LX 3.6 cm 3.0 - 4.0 / 2.7 - 3.8 cm DOPPLER TR Peak Velocity 301.0 cm/s TR Peak Gradient 36.2 mmHg FINDINGS Left Ventricle Severely increased left ventricular cavity size. Normal left ventricular wall thickness. Left ventricular ejection fraction is estimated at 10%. There is global hypokinesis and abnormal septal motion consistent with underlying bundle branch block. There is grade 3 diastolic dysfunction. Right Ventricle Mildly increased right ventricular size. Right Atrium The right atrium is normal in size. Left Atrium Normal size. Mitral Valve Morphologically normal mitral valve. Trace mitral valve regurgitation. Aortic Valve Morphologically normal aortic valve without significant sclerosis or stenosis. There is no aortic regurgitation. Tricuspid Valve Morphologically normal tricuspid valve. [id number] tricuspid valve regurgitation. Tricuspid regurgitation velocities suggest a PAP of 46 mmHg. Pulmonic Valve Morphologically normal pulmonic valve. [id number] pulmonary valve regurgitation. Pericardium Normal pericardium without effusion. Aorta Normal ascending aorta dimension. Rhonda Brooks MD (Electronically Signed) Final Date: 28 November 2016 20:02
[2016-11-28] MEDS: CARVEDILOL 3.125 MG TABLET PO SCH (20:58)
[2016-11-28] MEDS: INSULIN GLARGINE 100 UNIT/ML SUBCUT SCH (20:58)
[2016-11-28] MEDS ORDERED: INSULIN GLARGINE 100 UNIT/ML SUBCUT SCH (21:00)
[2016-11-28] MEDS: SACUBITRIL/VALSARTAN 49-51 MG TABLET PO SCH (22:47)
[2016-11-29] MEDS: INSULIN REGULAR 100 UNIT/ML SUBCUT SCH ×4 (07:48→22:11)
[2016-11-29] MEDS: FUROSEMIDE 40 MG/4 ML VIAL IV SCH ×3 (09:12→20:47)
[2016-11-29] MEDS: INSULIN GLARGINE 100 UNIT/ML SUBCUT SCH ×2 (09:20→22:07)
[2016-11-29] MEDS: DIGOXIN 0.25 MG TABLET PO SCH (09:21)
[2016-11-29] MEDS: ENOXAPARIN 40 MG/0.4 ML SYRINGE SUBCUT SCH (09:21)
[2016-11-29] MEDS: PANTOPRAZOLE 40 MG TABLET PO SCH (09:21)
[2016-11-29] MEDS: hydrALAZINE 25 MG TABLET PO SCH ×2 (09:21→22:09)
[2016-11-29] MEDS: SPIRONOLACTONE 25 MG TABLET PO SCH (09:21)
[2016-11-29] MEDS: SACUBITRIL/VALSARTAN 49-51 MG TABLET PO SCH ×2 (09:21→22:10)
[2016-11-29] MEDS: CARVEDILOL 3.125 MG TABLET PO SCH ×2 (09:21→22:10)
[2016-11-29] MEDS: ALBUTEROL/IPRATROPIUM 3 ML NEB RESP TX SCH ×2 (12:03→19:17)
--- NOTE | 2016-11-29 15:57 | Hospitalist Progress Note ---
Assessment and Plan (1) Systolic and diastolic CHF, acute on chronic Status: Acute Assessment and plan: increase Lasix 40 mg IV to tid, check bmp in am, cont coreg and sacubitril/ valsartan Current Visit: Yes (2) Diabetes mellitus Status: Chronic Assessment and plan: cont insulin, hgb a1c 6.6, cont isc Current Visit: No Qualifiers: Diabetes mellitus type: type 2 Diabetes mellitus complication status: without complication (3) HTN (hypertension) Status: Chronic Assessment and plan: controlled Current Visit: No Qualifiers: Hypertension type: essential hypertension Qualified Code(s): I10 - Essential (primary) hypertension (4) Nonischemic cardiomyopathy Status: Chronic Assessment and plan: ef of 10% Current Visit: Yes (5) Biventricular implantable cardioverter-defibrillator in situ Status: Chronic Current Visit: No (6) Pulmonary HTN Status: Acute Assessment and plan: pap of 46, negative for dvt, needs sleep evaluation Current Visit: Yes (7) CHARLIE (obstructive sleep apnea) Status: Acute Assessment and plan: dr. Ramos consulted. Current Visit: Yes (8) Thrombocytopenia Status: Acute Assessment and plan: elevated ammonia, lactulose, us to look for fatty liver, hepatitis panel Current Visit: Yes Hospitalist: Subjective Interval history: Patient has all the symptoms of obstructive sleep apnea. She really wants to go home today but I am not comfortable with that. She still has a large amount of pitting edema in her legs going up to her mid thigh. She also is very diminished and her breath sounds. I asked her if she smoked and she said no but she is exposed to a lot of secondhand smoke. Exam - Constitutional Vitals: Period Temp Pulse Resp BP Sys/Jaimes Pulse Ox Last 24 Hr 97 F-98.9 F 72-99 16-20 115-125/80-94 94-99 Exam: Heart Rate-[RRR] Lungs-[diminished, few wheezes] GI-[+bs soft, NT] Ext-[2+ edema] Neuro alert and oriented times 3, motor 5/5 psych normal mood and affect General [no acute distress] Results - Labs CBC & BMP: 11/28/16 07:02 11/28/16 11:10 Lab Results: I have reviewed the past 24 hour labs Labs: Hemoglobin A1c 6.6, ammonia level 42. - Diagnostic Findings Procedure: Ultrasound: report reviewed by me (No evidence of DVT)
--- NOTE | 2016-11-29 16:16 | Cardiology Progress Note ---
Assessment and Plan (1) Diabetes mellitus Status: Chronic Current Visit: No Qualifiers: Diabetes mellitus type: type 2 Diabetes mellitus complication status: without complication (2) CHF (congestive heart failure) Status: Acute Current Visit: No Qualifiers: Congestive heart failure type: systolic Congestive heart failure chronicity : acute on chronic Qualified Code(s): I50.23 - Acute on chronic systolic ( congestive) heart failure (3) HTN (hypertension) Status: Chronic Current Visit: No Qualifiers: Hypertension type: essential hypertension Qualified Code(s): I10 - Essential (primary) hypertension (4) Nonischemic cardiomyopathy Status: Chronic Current Visit: Yes (5) Biventricular implantable cardioverter-defibrillator in situ Status: Chronic Current Visit: No (6) CHARLIE (obstructive sleep apnea) Status: Chronic Current Visit: Yes Cardiology - PN: Subj Interval history: [employer]: Dr. Grace Vasquez Summary: History of hypertension, diabetes, obesity, smoking, nonischemic cardiomyopathy (most recent EF 15%), obstructive sleep apnea, automatic implantable cardiac defibrillator and noncompliance with medical treatment. She is currently admitted to the hospital with CHF exacerbation. November 29, 2016: Clinically she feels much better and is wondering if she can go home. Her shortness of breath is much improved, her somnolence is resolved. She continues to have significant lower extremity edema. She denies any chest pain. ASSESSMENT/PLAN: 1. CHF-this is acute on chronic, secondary to systolic dysfunction. She has severe nonischemic cardiomyopathy, ejection fraction 10-15%. Volume status is improved but she continues to have peripheral edema. She will be diuresed at least an additional day. 2. Diabetes- She has been started on Accu-Cheks with sliding scale insulin. 3. Hypertension- Continue home meds. Will continue to monitor and adjust accordingly throughout hospital stay. 4. Nonischemic cardiomyopathy-most recent ejection fraction 10%. 5. Biventricular implantable cardioverter-defibrillator in situ: Last interrogation done November 13, 2016 revealed appropriate function. 6. History of medication noncompliance- Chronic. Educate patient. 7. Obesity- Chronic. Weight loss encouraged with dietary restriction. Exam (Progress Note) - Constitutional Vitals: Period Temp Pulse Resp BP Sys/Jaimes Pulse Ox Last 24 Hr 97 F-98.9 F 72-99 16-20 115-125/80-94 94-99 Exam: General appearance: normal weight, no acute distress - Head Head exam: Present: normal inspection, normocephalic, atraumatic. Absent: hematoma, laceration - Eye Eye exam: Present: EOMI. Absent: conjunctival injection, nystagmus, periorbital swelling, scleral icterus, laceration to eyelids Pupils: Present: PERRL. Absent: constricted, dilated, fixed, irregular, unequal - ENT ENT exam: Present: normal exam, normal external ear exam - Neck Neck exam: Present: normal inspection. Absent: lymphadenopathy, meningismus, tenderness, thyromegaly - Respiratory Respiratory exam: Present: Decreased breath sounds in the bilateral bases. Absent: accessory muscle use, chest wall tenderness - Cardiovascular Cardiovascular exam: Present: regular rate and rhythm, JVD at 8 cm. Absent: carotid bruit, gallop, rubs - GI/Abdominal GI/Abdominal exam: Present: normal bowel sounds, soft. Absent: distended, firm , guarding, hernia, mass, tenderness, rebound. - Extremities Exam Extremities exam: Present: 2-3+ bilateral lower extremity edema. Absent: calf tenderness - Back Exam Back exam: Present: normal inspection. Absent: muscle spasm, vertebral tenderness - Neurological Exam Neurological exam: Present: alert, oriented X3, grossly intact without resting or intention tremor - Psychiatric Psychiatric exam: Present: normal affect, normal mood - Skin Skin exam: Present: normal color, warm, dry, intact. Absent: cyanosis, diaphoretic, rash, urticaria Result/EKG - Labs CBC & BMP: 11/28/16 07:02 11/28/16 11:10 Lab Results: I have reviewed the past 24 hour labs Labs: Laboratory Results - last 24 hr 11/28/16 11/28/16 11/28/16 15:49 16:19 20:35 POC Glucose 140 H 108 H Ammonia 42 H 11/29/16 11/29/16 11/29/16 07:23 11:45 15:52 POC Glucose 100 87 139 H Ammonia
[2016-11-29 17:59] LABS: Hepatitis A Ab IgM Quant 0.14 Index; Hepatitis A Ab IgM Result Negative (Negative); Hepatitis B Core IgM Quant 0.05 Index; Hepatitis B Core IgM Result Negative (Negative); Hepatitis B Surface Ag Quant 0.31 Index; Hepatitis B Surface Ag Result Negative (Negative); Hepatitis C Virus Ab Quant 0.16 Index; Hepatitis C Virus Ab Result Negative (Negative)
--- NOTE | 2016-11-29 19:18 | Ultrasound Report ---
Exam: US right upper quadrant Date:11/29/2016 3:58 PM Comparison:None Indication: Fatty liver Real-time ultrasound images are captured and archived. There are minimal increased echoes throughout the hepatic parenchyma compatible with mild diffuse fatty infiltration of the liver. There is no focal hepatic mass. There is no abnormal biliary dilatation. The gallbladder wall is mildly thickened, though some of this appearance can be attributed to gallbladder contraction of a slight degree. There is no cholelithiasis. The pancreas and right kidney appear normal. ORGAN MEASUREMENTS Liver Length:16.2 cm Gallbladder Wall Thickness: 3.5 mm CBD: 3 mm Right kidney: Length:12.3 cm Width:6.1 cm AP:4.5 cm Impression: Mild nonspecific gallbladder wall thickening which could be partially related to gallbladder contraction. No evidence of cholelithiasis Mild diffuse fatty infiltration of the liver Otherwise unremarkable right upper quadrant ultrasound PROCEDURE INTERPRETED AT [facility] DEPARTMENT OF RADIOLOGY Final Report Signed by: Dr. Dimple Sarmiento
[2016-11-29] MEDS: LACTULOSE 20 GM/30 ML UDCUP PO SCH (22:09)
[2016-11-30] MEDS: ALBUTEROL/IPRATROPIUM 3 ML NEB RESP TX SCH ×3 (00:19→12:12)
[2016-11-30 05:06] LABS: Calcium 8.1 MG/DL (8.5-10.1); Osmolality,Calculated 283.3 MOS/KG (273-304); Potassium 3.8 MMOL/L (3.5-5.1)
[2016-11-30] MEDS: FUROSEMIDE 40 MG/4 ML VIAL IV SCH ×2 (05:24→12:29)
[2016-11-30] MEDS: INSULIN REGULAR 100 UNIT/ML SUBCUT SCH ×2 (09:54→12:57)
[2016-11-30] MEDS: SACUBITRIL/VALSARTAN 49-51 MG TABLET PO SCH (09:55)
[2016-11-30] MEDS: PANTOPRAZOLE 40 MG TABLET PO SCH (09:55)
[2016-11-30] MEDS: CARVEDILOL 3.125 MG TABLET PO SCH (09:55)
[2016-11-30] MEDS: SPIRONOLACTONE 25 MG TABLET PO SCH (09:55)
[2016-11-30] MEDS: LACTULOSE 20 GM/30 ML UDCUP PO SCH (09:55)
[2016-11-30] MEDS: hydrALAZINE 25 MG TABLET PO SCH (09:55)
[2016-11-30] MEDS: ENOXAPARIN 40 MG/0.4 ML SYRINGE SUBCUT SCH (09:56)
[2016-11-30] MEDS: DIGOXIN 0.25 MG TABLET PO SCH (09:56)
--- NOTE | 2016-11-30 10:03 | Discharge Summary ---
<Chandrika Braga - Last Filed: 11/30/16 09:44> Hospital Course - Hospital Course Hospital Course: 36-year-old -[place] female with a history of congestive heart failure diabetes hypertension and morbid obesity presents to emergency room with complaints of worsening lower extremity edema. Patient has acute on chronic systolic chf exacerbation. Patient has a known cardiomyopathy with an EF between 10-15%. She already has an AICD. She is to use Dr. Grace Vasquez with [facility]. Patient needs to restrict her free water intake to 2 L a day. Patient was aggressively diuresed with IV Lasix and cardiology was consulted. Patient has evidence to suggest obstructive sleep apnea due to her morbid obesity. It is very important for her to comply with our recommendations to see Dr. Ramos for evaluation and testing. I told her that her heart failure we continued to get worse without fluid restriction and salt restriction. She also needs to elevate her legs during the day. She also has a lot of wheezing due to secondhand smoke. We will get her a nebulizer machine with albuterol treatments but she needs to have asked him to smoke outside. Patient does have diabetes which is well controlled with hemoglobin A1c of 6.6. Patient will be discharged home to follow-up with Dr. Grace Vasquez, Dr. Ramos and her primary care doctor. Discharge Plan - Discharge Data Disposition: Home Health Service - Discharge Medications New Carvedilol [Coreg] 3.125 mg PO BID #60 tablet Albuterol Inhaler [Proventil Inhaler] 2 puff INH Q4H PRN #1 inhaler PRN Reason: Shortness Of Breath/Wheezing Albuterol Neb [Proventil Neb] 1.25 mg RESP TX TID #90 neb Potassium Chloride Cap/Tab [K Dur] 10 meq PO DAILY #30 tablet Continue Furosemide Tab [Lasix Tab] 60 mg PO BID DIURETIC #90 tablet Insulin Detemir [Levemir] 20 unit SUBCUT BID #0 Sacubitril/Valsartan [Entresto 24 mg-26 mg Tablet] 1 tablet PO BID hydrALAZINE TAB [Apresoline Tab] 25 mg PO BID Spironolactone [Aldactone] 25 mg PO DAILY Digoxin 250 mcg PO DAILY Discontinued Lisinopril 40 mg PO DAILY - Follow Up or Referral Follow Up: Cristel Ramos MD [Physician] - Grace Vasquez DO [Physician] - pmddr [Other] - Forms/Instructions Exam - Constitutional Vitals: Period Temp Pulse Resp BP Sys/Jaimes Pulse Ox Last 24 Hr 97 F-98.8 F 76-88 16-20 109-120/69-92 96-100 Discharge Results Procedures and tests throughout hospitalization: Pending Orders 12/01/16 04:00 BMP [Basic Metabolic Panel] IN AM Labs on day of discharge: Labs from last 24 hours 11/30/16 11/30/16 11/29/16 07:50 03:45 21:16 Sodium 141 Potassium 3.8 Chloride 101 Carbon Dioxide 34 H Anion Gap 9.8 BUN 21 H Creatinine 0.90 GFR Calculation 131 BUN/Creatinine Ratio 23.00 H Glucose 102 POC Glucose 141 H 113 H Calculated Osmolality 283.3 Calcium 8.1 L Hepatitis A IgM Ab Hep Bs Antigen Hep B Core IgM Ab Hepatitis C Antibody 11/29/16 11/29/16 11/29/16 16:17 15:52 11:45 Sodium Potassium Chloride Carbon Dioxide Anion Gap BUN Creatinine GFR Calculation BUN/Creatinine Ratio Glucose POC Glucose 139 H 87 Calculated Osmolality Calcium Hepatitis A IgM Ab Negative Hep Bs Antigen Negative Hep B Core IgM Ab Negative Hepatitis C Antibody Negative DS: Provider Date of admission: 11/28/16 01:41 Primary care physician: . No PCP Attending physician on admission: David Mcdonough MD Consults: 11/28/16 01:41 Consult to Physician [CONS] Routine Comment: Consulting Provider: Cardiology - [facility] Consult to Specialist Group: Cardiology When should Consulting Provider be notified: In am Person Notified: errol Date Notified: 11/28/16 Time Notified: 07:40 11/28/16 10:40 Consult to Sleep Center [CONS] Routine Reason for Sleep Center: Sleep Center Physician Consult Comment: severe charlie 11/30/16 09:39 Consult to Case Mgmt/Social Srvs [CONS] Routine Reason for Case Mgmt/Social Srvs: Equipment Home Health Consult Comment: med compliance, nebulizer machine for home Discharging clinician: Chandrika Braga NP <Lorin Salinas - Last Filed: 11/30/16 10:51> Hospital Course - Time spent with patient Time with patient DS: Greater than 30 minutes (45 min) Diagnosis - Discharge Diagnosis (1) Systolic and diastolic CHF, acute on chronic Status: Acute (2) Diabetes mellitus Status: Chronic (3) HTN (hypertension) Status: Chronic (4) Nonischemic cardiomyopathy Status: Chronic (5) Biventricular implantable cardioverter-defibrillator in situ Status: Chronic (6) Pulmonary HTN Status: Acute (7) CHARLIE (obstructive sleep apnea) Status: Chronic (8) Thrombocytopenia Status: Acute Discharge Plan - Discharge Data Condition at Discharge: Stable Discharge Diet: diabetic diet Activity: resume usual activities as tolerated Hygiene: no restrictions Weight Bearing at Discharge: full weight bearing Driving: no restrictions - Forms/Instructions Additional Discharge Instructions: nebulizer machine for home, no exposure to second hand smoke, keep legs elevated. Needs to see sleep doctor. fluid restrictions to 2 liters a day Exam - Constitutional General appearance: normal weight, no acute distress - Respiratory Respiratory exam: Present: clear to auscultation bilaterally. Absent: rhonchi, wheezes - Cardiovascular Cardiovascular exam: Present: regular rate and rhythm. Absent: systolic murmur - GI/Abdominal GI/Abdominal exam: Present: normal bowel sounds, soft. Absent: tenderness - Extremities Exam Extremities exam: Present: normal capillary refill, edema - Neurological Exam Neurological exam: Present: alert, oriented X3
[2016-11-30] MEDS: INSULIN GLARGINE 100 UNIT/ML SUBCUT SCH (10:06)
[2016-11-30 14:33] VITALS: BP 112/78
== END 2016-11-30 15:30 | disposition home or self-care (01) | DRG 292 ==
LOC: N.ED 23:40 → N.EDINP 11-28 01:41 → SUATTDRO 11-28 01:41 → N.TELEN 11-28 02:30
PROVIDERS: ADMIT Internal Medicine; ATTEND Internal Medicine

== ENCOUNTER 2017-01-05 14:59 | Inpatient (IN) ==
--- NOTE | 2017-01-05 17:14 | XRay Report ---
2 view chest 01/05/2017 4:55 PM Indication: Shortness of breath Comparison: November 28, 2016 at 1221 hours Findings: Cardiomediastinal contours are stable with marked cardiomegaly and no change in defibrillator placement. Lungs are clear bilaterally. . No acute osseous abnormalities. Visualized upper abdomen demonstrates no acute pathology. Impression: No acute cardiopulmonary findings PROCEDURE INTERPRETED AT [facility] DEPARTMENT OF RADIOLOGY Final Report Signed by: Osvaldo Najera
[2017-01-05 17:47] LABS: Basophils % 0.9 % (0.0-0.8); Eosinophils # 0.1 10*3/uL (0.0-0.87); Eosinophils % 2.2 % (0.00-10.9); Hematocrit 42.4 VOL% (35.7-47.0); Immature Granulocytes % 0.3 %; Immature Granulocytes Absolute 0.01 #; Lymphocytes # 1.5 10*3/uL (1.4-4.0); Lymphocytes % 47.2 % (21.3-54.2); Mean Corpuscular Hemoglobin 29 PG (27-34); Mean Corpuscular Volume 87.4 FL (87-102); Mean Platelet Volume 11.1 FL (9.6-12.0); Monocytes # 0.2 10*3/uL (0.11-0.8); Monocytes % 7.5 % (1.7-12.7); Neutrophils # 1.4 10*3/uL (1.4-7.4); Neutrophils % 41.9 % (38.7-73.9); Platelet Count 137 T/CUMM (130-400); Red Blood Count 4.85 MC/CUMM (3.8-5.5); Red Cell Distribution Width 15.9 % (9.3-17.3); White Blood Count 3.2 T/CUMM (4-12)
[2017-01-05 18:16] LABS: Blood Urea Nitrogen 23 MG/DL (7-18); Calcium 7.7 MG/DL (8.5-10.1); Glucose 80 MG/DL (74-106); Osmolality,Calculated 281.4 MOS/KG (273-304); Potassium 4.2 MMOL/L (3.5-5.1); Sodium 140 MMOL/L (136-145); Troponin I Only < 0.015 NG/ML (0.00-0.045)
[2017-01-05] MEDS ORDERED: hydrALAZINE 20 MG/1 ML VIAL IV STA ×2 (19:00→19:55)
[2017-01-05] MEDS ORDERED: hydrALAZINE 20 MG/1 ML VIAL ONE (19:04)
--- NOTE | 2017-01-05 19:26 | Emergency Department Note ---
Gabby Colon Gwan, am scribing for, and in the presence of, Jordan Andino MD 18 :13. Sina Colon Charles R, MD, personally performed the services described in this documentation, ascribed by Dameon Pierre in my presence, and it is both accurate and complete 926 . Arrival - Arrival Chief Complaint: Shortness of Breath Stated Complaint: sob. Badly swelling in legs and knees. ED Nursing Triage Note: PT C/O SHORTNESS OF BREATH, WORSE WITH EXERTION. ONSET 2 DAYS. REPORTS INCREASED EDEMA TO BLE. Mode of Arrival: Ambulatory Limitations: No Limitations Source: Patient, Old Records Reviewed, RN Notes Reviewed Time Seen by Provider: 01/05/17 18:08 - History of Present Illness HPI Narrative: Patient is a 36 y/o female, with a hx of nonischemic cardiomyopathy with EF of 10% and ICD, who presents to the ED with a c/o SOB and edema to bilateral LE with an onset 2 days ago. Pt has a PMHx of HTN, pacemaker, CHF, IDDM and obstructive sleep apnea. Patient stated that her SOB is exacerbated with exertion and when she lays flat it feels as if she is "smothering". Patient confirmed that she is being followed by [employer] [facility] Dr. Vasquez and that she has a defibrillator due to CHF. She denies a SHx of smoking cigarettes or being compliant with sleep study appointments. During exam, patient did not display any signs of distress. No other problems/complaints reported in ED. Onset (ago): day(s) Consistency: constant Severity: moderate Allergies/Adverse Reactions: Allergies Allergy/AdvReac Type Severity Reaction Status Date / Time No Known Allergies Allergy Verified 01/05/17 15:35 Home Medications: Home Medications Medication Instructions Recorded Confirmed Type Digoxin 250 mcg PO DAILY 11/28/16 11/28/16 History Sacubitril/Valsartan [Entresto 24 1 tablet PO BID 11/28/16 11/28/16 History mg-26 mg Tablet] Spironolactone [Aldactone] 25 mg PO DAILY 11/28/16 11/28/16 History hydrALAZINE TAB [Apresoline Tab] 25 mg PO BID 11/28/16 11/28/16 History Albuterol Inhaler [Proventil 2 puff INH Q4H PRN #1 inhaler 11/30/16 Rx Inhaler] Albuterol Neb [Proventil Neb] 1.25 mg RESP TX TID #90 neb 11/30/16 Rx Carvedilol [Coreg] 3.125 mg PO BID #60 tablet 11/30/16 Rx Furosemide Tab [Lasix Tab] 60 mg PO BID DIURETIC #90 tablet 11/30/16 11/28/16 Rx Insulin Detemir [Levemir] 20 unit SUBCUT BID #0 11/30/16 11/28/16 Rx Potassium Chloride Cap/Tab [K Dur] 10 meq PO DAILY #30 tablet 11/30/16 Rx Review of System - Review of System 12 point system: reviewed and no additional remarkable complaints except as stated - Review of System Constitutional: Absent: chills, fever Eyes: Absent: discharge, vision change Respiratory: Present: as per HPI, other (shortness of breathe). Absent: cough Medical,Surgical,& Family Hx - Medical History Cardio: History of: CHF (NICM systolic and diastolic HF NYHA III), Hypertension , Pacemaker, Cardiovascular Problems (Nonischemic cardiomyopathy with EF of 10% . 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) Neurologic Surgeries: Patient denies: Neurologic Surgery Abdominal Surgeries: Surgical HX of: Abdominal Surgery Reproductive Surgeries: Surgical HX of;: Section, Hysterectomy (partial ) Patient denies;: Genitourinary Surgery - Family History Family History: Reports;: Family Diabetes, Family Hypertension - Social History Smoking Status: Smoker, status unknown Frequency of Alcohol Use: None Type of Drug Use: None Exam Vital Signs: Vital Signs Temperature 97.8 F 01/05/17 18:04 Pulse Rate 94 H 01/05/17 18:30 Respiratory Rate 20 01/05/17 18:30 Blood Pressure 143/112 01/05/17 18:30 O2 Sat by Pulse Oximetry 100 01/05/17 18:30 - General General appearance: alert, in no apparent distress, obese (morbidly) - Head Head exam: Present: atraumatic, normocephalic - Eye Eye exam: Present: normal appearance, PERRL, EOMI - ENT ENT exam: Present: normal oropharynx, mucous membranes moist, TM's normal bilaterally, normal external ear exam - Neck Neck exam: Present: full ROM, other (Increased JVD distention). Absent: tenderness - Respiratory Respiratory exam: Present: rales (bi basal ), other (Patient has Pickwickian syndrome) - Cardiovascular Cardiovascular exam: Present: other (Patient has ICD.) - Abdominal Exam Abdominal exam: Present: soft, distention (patient is morbidly obese), normal bowel sounds. Absent: tenderness - Extremities Exam Extremities exam: Present: full ROM, other (Patient has +2 edema bilateral LE) - Back Exam Back exam: Present: full ROM. Absent: tenderness - Neurological Exam Neurological exam: Present: alert, oriented X3, CN II-XII intact. Absent: motor sensory deficit - Psychiatric Psychiatric exam: Present: normal affect, normal mood - Skin Skin exam: Present: warm, dry, intact, normal color Course - Consultations Consultation #1: Dr. España will admit pt Time: 19:13 Results - Labs CBC & BMP: 01/05/17 17:36 01/05/17 17:36 Lab Results: I have reviewed the patients labs Labs: Laboratory Tests 01/05/17 17:36 WBC 3.2 L RBC 4.85 Hgb 14.0 Hct 42.4 Plt Count 137 Baso % (Auto) 0.9 H Laboratory Tests 01/05/17 01/05/17 17:36 17:36 Sodium 140 Potassium 4.2 Chloride 105 Carbon Dioxide 30 BUN 23 H Creatinine 1.20 H Calcium 7.7 L B-Natriuretic Peptide 1236 H - Diagnostic Findings Procedure: Chest x-ray: report reviewed by me (No acute cardiopulmonary findings. ) Critical Care Time Critical Care Time: Yes Total Critical Care Time: 60 Disposition Clinical Impression: Nonischemic cardiomyopathy, Biventricular implantable cardioverter- defibrillator in situ, Pulmonary edema, Obesity (BMI 35.0-39.9 without comorbidity), Systolic and diastolic CHF, acute on chronic, CHARLIE (obstructive sleep apnea), HTN (hypertension), Hypertensive urgency Case discussed with: patient Disposition: Still a Patient Condition: Guarded Time of Disposition: 19:21
[2017-01-05] MEDS ORDERED: ALBUTEROL/IPRATROPIUM 3 ML NEB RESP TX PRN (20:26)
[2017-01-05] MEDS ORDERED: MORPHINE 2 MG/1 ML SYRINGE IV PRN (20:26)
[2017-01-05] MEDS ORDERED: POTASSIUM CHLORIDE 20 MEQ TABLET PO PRN (20:26)
[2017-01-05] MEDS ORDERED: DEXTROSE 50% 25 GM/50 ML VIAL IV PRN (20:26)
[2017-01-05] MEDS ORDERED: ONDANSETRON 4 MG/2 ML VIAL IV PRN (20:26)
[2017-01-05] MEDS ORDERED: GLUCAGON 1 MG VIAL IM PRN (20:26)
[2017-01-05] MEDS ORDERED: SODIUM CHLORIDE 0.9% 1,000 ML IV SCH (20:26)
[2017-01-05] MEDS ORDERED: ONDANSETRON 4 MG/2 ML VIAL ONE (20:39)
--- NOTE | 2017-01-05 21:19 | EKG Report ---
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
[2017-01-05] MEDS: INSULIN REGULAR 100 UNIT/ML SUBCUT SCH (21:26)
[2017-01-05] MEDS: ENOXAPARIN 120 MG/0.8 ML SYRINGE SUBCUT SCH (21:29)
[2017-01-05] MEDS ORDERED: FUROSEMIDE 40 MG/4 ML VIAL IV ONE (21:36)
[2017-01-05] MEDS: ACETAMINOPHEN 325 MG TABLET PO PRN (21:46)
[2017-01-05 22:39] LABS: Troponin I Only < 0.015 NG/ML (0.00-0.045)
[2017-01-06] MEDS: NITROGLYCERIN 2% OINT 1 INCH/GM PACK TOP SCH ×4 (00:38→17:11)
[2017-01-06] MEDS: ACETAMINOPHEN 325 MG TABLET PO PRN (01:30)
[2017-01-06 04:42] LABS: Basophils % 1.1 % (0.0-0.8); Eosinophils # 0.1 10*3/uL (0.0-0.87); Eosinophils % 1.4 % (0.00-10.9); Hematocrit 38.7 VOL% (35.7-47.0); Hemoglobin 12.9 GM/DL (12.0-16.0); Immature Granulocytes % 0.3 %; Immature Granulocytes Absolute 0.01 #; Lymphocytes # 1.6 10*3/uL (1.4-4.0); Lymphocytes % 44.8 % (21.3-54.2); Mean Corpuscular HGB Conc 33.3 GM/DL (32-36); Mean Corpuscular Hemoglobin 29 PG (27-34); Mean Corpuscular Volume 87.8 FL (87-102); Mean Platelet Volume 11.5 FL (9.6-12.0); Monocytes # 0.3 10*3/uL (0.11-0.8); Monocytes % 8.6 % (1.7-12.7); Neutrophils # 1.6 10*3/uL (1.4-7.4); Neutrophils % 43.8 % (38.7-73.9); Platelet Count 139 T/CUMM (130-400); Red Blood Count 4.41 MC/CUMM (3.8-5.5); Red Cell Distribution Width 15.9 % (9.3-17.3); White Blood Count 3.6 T/CUMM (4-12)
[2017-01-06 05:13] LABS: Albumin 2.8 G/DL (3.4-5.0); Bilirubin,Total 1.6 MG/DL (0.2-1.0); Calcium 7.5 MG/DL (8.5-10.1); Magnesium 1.1 MG/DL (1.8-2.4); Osmolality,Calculated 283.3 MOS/KG (273-304); Potassium 3.9 MMOL/L (3.5-5.1)
[2017-01-06 05:14] LABS: Risk Ratio 3.11
[2017-01-06 05:25] LABS: Troponin I Only < 0.015 NG/ML (0.00-0.045)
--- NOTE | 2017-01-06 07:30 | EKG Report ---
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
[2017-01-06] MEDS: MAGNESIUM SULF RIDER 4 GM in PREMIX 1 EACH IV PRN (07:32)
--- NOTE | 2017-01-06 07:47 | EKG Report ---
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
--- NOTE | 2017-01-06 08:11 | XRay Report ---
2 view chest 01/06/2017 4:00 AM Indication: Shortness of breath Comparison: Previous day at 1707 hours Findings: Cardiomediastinal contours are stable with marked cardiomegaly. Defibrillator remains in satisfactory position.. Lungs are clear bilaterally. . No acute osseous abnormalities. Visualized upper abdomen demonstrates no acute pathology. Impression: Stable cardiomegaly PROCEDURE INTERPRETED AT [facility] DEPARTMENT OF RADIOLOGY Final Report Signed by: Osvaldo Najera
[2017-01-06] MEDS: FUROSEMIDE 40 MG/4 ML VIAL IV SCH ×2 (08:42→16:26)
[2017-01-06] MEDS: ENOXAPARIN 120 MG/0.8 ML SYRINGE SUBCUT SCH (08:42)
[2017-01-06] MEDS: PANTOPRAZOLE 40 MG TABLET PO SCH (08:42)
[2017-01-06] MEDS: INSULIN REGULAR 100 UNIT/ML SUBCUT SCH ×4 (08:50→20:23)
[2017-01-06] MEDS ORDERED: ASPIRIN EC 325 MG TABLET PO SCH (09:00)
--- NOTE | 2017-01-06 12:50 | EKG Report ---
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
[2017-01-06 13:28] LABS: Troponin I Only < 0.015 NG/ML (0.00-0.045)
[2017-01-06 15:23] LABS: Apearance,Urine CLEAR (Clear); Bilirubin,Urine Negative (Negative); Blood, Urine Negative (Negative); Glucose,Urine (UA) Negative (Negative); Hyaline Casts,Urine 8 /LPF (0-3); Ketones,Urine Negative (Negative); Mucus,Urine Occasional /LPF (Occasional); Nitrite,Urine Negative (Negative); Protein,Urine Negative; Squamous Epithelial Cell,Urine Occasional /HPF (0-10); Urine Color Yellow (Yellow); Urine Specific Gravity 1.009 (1.001-1.035); WBC,Urine <1 /HPF (0-6)
[2017-01-06] MEDS: MAGNESIUM SULF RIDER 2 GM in PREMIX 1 EACH IV PRN (17:19)
--- NOTE | 2017-01-06 17:33 | Sleep Medicine Consult ---
Assessment and Plan (1) CHARLIE (obstructive sleep apnea) Status: Chronic Assessment and plan: This patient certainly could have obstructive sleep apnea based on her history of snoring and witnessed apneas. She also could have central sleep apnea given the severity of her cardiomyopathy. She does need evaluation. We will start with home sleep testing tonight and follow-up on these results. Thank you for this consult and the opportunity to participate in her care. Current Visit: Yes (2) Systolic and diastolic CHF, acute on chronic Status: Acute Assessment and plan: Untreated sleep apnea certainly could be an exacerbating factor to her CHF, whether systolic or diastolic in nature. CPAP therapy has been shown to improve ejection fraction in patients with systolic dysfunction and concurrent obstructive sleep apnea. And may also decrease her readmission right to the hospital related to CHF. Current Visit: Yes (3) HTN (hypertension) Status: Chronic Assessment and plan: The prevalence rate for obstructive sleep apnea patients with hypertension is 35 %. That rate can be as high as 80% in patients who require 4 or more medications for blood pressure control. Current Visit: Yes Qualifiers: Hypertension type: essential hypertension Qualified Code(s): I10 - Essential (primary) hypertension (4) Diabetes mellitus Status: Chronic Assessment and plan: The prevalence rate for obstructive sleep apnea in patients with type 2 diabetes can be as high as 86%. Those patients with moderate to severe obstructive sleep apnea are at a greater risk for diabetic nephropathy and neuropathy. Compliance with CPAP therapy for these patients can lead to improvement in glycemic control and improvement in insulin sensitivity. Current Visit: No Qualifiers: Diabetes mellitus type: type 2 Diabetes mellitus complication status: without complication History of Present Illness Chief complaint: Sleep apnea History of present illness: Ms. Espinal is a 36 year old female admitted with congestive heart failure. She has a history of severe cardiomyopathy with an ejection fraction of 10%. She states that she was originally diagnosed with her cardiomyopathy 2-3 years ago and had an EF of 6% at that time. She does have a history of hypertension and diabetes but does not drink alcohol. Her cardiomyopathy is nonischemic in nature. She does have a defibrillator in place. She does have symptoms of loud snoring and abnormal breathing during sleep with frequent awakenings due to shortness of breath. She also has been told that she stops breathing during her sleep. Sleep medicine was consulted to exclude sleep apnea. She does have significant symptoms of sleepiness throughout the day. She states that she just never feels rested. Home Medications Medication Instructions Recorded Confirmed Type Sacubitril/Valsartan [Entresto 24 1 tablet PO BID 11/28/16 01/05/17 History mg-26 mg Tablet] Spironolactone [Aldactone] 25 mg PO DAILY 11/28/16 01/05/17 History Albuterol Inhaler [Proventil 2 puff INH Q4H PRN #1 inhaler 11/30/16 01/05/17 Rx Inhaler] Albuterol Neb [Proventil Neb] 1.25 mg RESP TX TID #90 neb 11/30/16 01/05/17 Rx Carvedilol [Coreg] 3.125 mg PO BID #60 tablet 11/30/16 01/05/17 Rx Furosemide Tab [Lasix Tab] 60 mg PO BID DIURETIC #90 tablet 11/30/16 01/05/17 Rx Insulin Detemir [Levemir] 20 unit SUBCUT BID #0 11/30/16 01/05/17 Rx Potassium Chloride Cap/Tab [K Dur] 10 meq PO DAILY #30 tablet 11/30/16 01/05/17 Rx Allergies Allergy/AdvReac Type Severity Reaction Status Date / Time No Known Allergies Allergy Verified 01/05/17 15:35 Review of systems: Notable for lower extremity edema and nocturia. She does have chronic orthopnea. Exam (Pulmonay) H&P - Constitutional Vitals: Period Temp Pulse Resp BP Sys/Jaimes Pulse Ox Last 24 Hr 97.8 F-98.8 F 93-107 18-20 111-144/74-112 91-100 Exam: She is alert and responsive in no acute distress. Pupils equal round reactive to light and accommodation. Extraocular movements intact. Oropharynx with a class III Mallampati exam. Neck is supple without adenopathy or thyromegaly. No supraclavicular adenopathy is noted. Chest with symmetrical breath sounds without focal wheeze, rhonchi, or rales. Cardiac exam reveals a regular rhythm without murmur or gallop. Abdomen soft nontender without palpable hepatosplenomegaly or mass. Extremities with chronic edema that is pitting. Neurologically, she is grossly intact. She answers all questions appropriately. She moves all extremities with good strength. Medical,Surgical,& Family Hx - Medical History Cardio: History of: CHF (NICM systolic and diastolic HF NYHA III), Hypertension , Pacemaker, Cardiovascular Problems (Nonischemic cardiomyopathy with EF of 10% . 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
--- NOTE | 2017-01-06 19:25 | Cardiology History & Physical ---
Steve Colon Vanessa RN, am scribing for, and in the presence of, Jeffrey España MD 19 :25. Assessment and Plan - Time spent with patient Time spent with patient: Greater than 30 minutes (Assessment, planning, documentation, medication review) (1) CHF (congestive heart failure), NYHA class III Status: Chronic Assessment and plan: 36 year old BF with PMHx HTN, DM, morbid obesity, CHARLIE, medical noncompliance, tobacco use. Patient has a NICM, EF 10%, chronic systolic CHF, post biventricular AICD implant in 2013. Now with recurrent admission for CHF exacerbation after presenting with increasing dyspnea on exertion and lower extremity edema for 2 weeks. Admits to missing medications. Echo in November with grade 3 diastolic dysfunction, mild to moderate pulmonary HTN with PAP 46 mmHg, four chamber cardiac enlargement. EKG: ventricular pacing, LBBB. ASSESSMENT/PLAN: 1. CHF-acute on chronic, NYHA class III. Continue IV diuresis, resume Entresto. Monitor daily weight, I/O, BMP. Consult cardiac rehab. 2. HTN-better controlled 3. STEAM HAND-nonischemic, EF 10% 4. Get recent TRANSPORT TANK TECHNICIAN-D interrogation from clinic 5. CHARLIE-sleep medicine consult for HST. 6. HYPOMAGNESEMIA-still with some mild hypomagnesemia after repleting with 4 gms IV MagSulfate. Cont Current Visit: No Qualifiers: Congestive heart failure type: combined Congestive heart failure chronicity : acute on chronic Qualified Code(s): I50.43 - Acute on chronic combined systolic (congestive) and diastolic (congestive) heart failure (2) Biventricular implantable cardioverter-defibrillator in situ Status: Chronic Assessment and plan: SEE PLAN OF CARE LISTED ABOVE. Current Visit: Yes (3) HTN (hypertension) Status: Chronic Assessment and plan: SEE PLAN OF CARE LISTED ABOVE. Current Visit: Yes Qualifiers: Hypertension type: essential hypertension Qualified Code(s): I10 - Essential (primary) hypertension (4) Nonischemic cardiomyopathy Status: Chronic Assessment and plan: SEE PLAN OF CARE LISTED ABOVE. Current Visit: Yes (5) CHARLIE (obstructive sleep apnea) Status: Chronic Assessment and plan: SEE PLAN OF CARE LISTED ABOVE. Current Visit: Yes (6) Obesity (BMI 35.0-39.9 without comorbidity) Status: Chronic Assessment and plan: SEE PLAN OF CARE LISTED ABOVE. Current Visit: Yes (7) Pulmonary HTN Status: Chronic Assessment and plan: SEE PLAN OF CARE LISTED ABOVE. Current Visit: No (8) Diabetes mellitus Status: Chronic Assessment and plan: SEE PLAN OF CARE LISTED ABOVE. Current Visit: No Qualifiers: Diabetes mellitus type: type 2 Diabetes mellitus complication status: without complication (9) H/O medication noncompliance Status: Chronic Assessment and plan: SEE PLAN OF CARE LISTED ABOVE. Current Visit: No (10) Hypomagnesemia Status: Acute Assessment and plan: SEE PLAN OF CARE LISTED ABOVE. 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 Espinal, 36 year old BF, PMHx morbid exogenous obesity, hypertension, diabetes obstructive sleep apnea, continues to use tobacco. She has a nonischemic cardiomyopathy with acute on chronic systolic CHF, NYHA class III due to reduced EF 10%. History of NSVT and now status post biventricular AICD implant per Dr. Foote in September 2013. History of medical noncompliance also. Initiated on low dose Entresto in April 2016 per primary human resources safety manager. Patient has had a couple hospitalizations this year for CHF exacerbation with most recent discharge November 28 after 2 day admission, good response to diuresis. Last seen in [facility] in October 2016 with ICD interrogation also ( some NSVT but no shocks). Now admitted to telemetry unit after presenting to ED yesterday evening complaining of gradually worsening dyspnea on exertion and swelling of bilateral lower extremities and knees. Chest x-ray with stable cardiomegaly and overall clear. BNP 1236. No recent cough, fever, URI. EKG with ventricular pacing, LBBB. She is admitted to cardiology service. Last echocardiogram in November 2016 during hospital admission- EF 10%, grade 3 diastolic dysfunction, mild to moderate pulmonary HTN with PAP 46 mmHg, four chamber cardiac enlargement. Venous doppler US of BLEs during last admit negative for DVT finding. Received IV Lasix in ED with IV hydralazine for elevated DBP 100-115 mmHg. Good urine output overnight and this morning per patient report. She is resting quietly in bed this morning and not requiring supplemental oxygen. Says she is feeling much better this morning. No tachypnea. Some mild shortness of breath with lengthy conversation. No chest pain or pressure. Reports over the last 2 weeks she has experienced worsening shortness of breath and increasing in lower extremity edema up to knees. Lower ext's 2-3+ pitting edema, tender to palpation. Uses 2 pillows to sleep at night routinely and has not increased recently. Admits PND. No palpitations or presyncope. Admits she has missed some of her medications recently, including Entresto but does not further elaborate. Serial cardiac biomarkers normal. BNP improved to 905. Renal function stable. Total bilirubin 1.6. Significant hypomagnesemia, 1.1. Being repleted with IV MagSulfate this morning. Home Medications Medication Instructions Recorded Confirmed Type Sacubitril/Valsartan [Entresto 24 1 tablet PO BID 11/28/16 01/05/17 History mg-26 mg Tablet] Spironolactone [Aldactone] 25 mg PO DAILY 11/28/16 01/05/17 History Albuterol Inhaler [Proventil 2 puff INH Q4H PRN #1 inhaler 11/30/16 01/05/17 Rx Inhaler] Albuterol Neb [Proventil Neb] 1.25 mg RESP TX TID #90 neb 11/30/16 01/05/17 Rx Carvedilol [Coreg] 3.125 mg PO BID #60 tablet 11/30/16 01/05/17 Rx Furosemide Tab [Lasix Tab] 60 mg PO BID DIURETIC #90 tablet 11/30/16 01/05/17 Rx Insulin Detemir [Levemir] 20 unit SUBCUT BID #0 11/30/16 01/05/17 Rx Potassium Chloride Cap/Tab [K Dur] 10 meq PO DAILY #30 tablet 11/30/16 01/05/17 Rx Allergies Allergy/AdvReac Type Severity Reaction Status Date / Time No Known Allergies Allergy Verified 01/05/17 15:35 - Constitutional Constitutional: Present: daytime sleepiness, weight gain. Absent: anorexia, chills, fatigue, fever(s), lethargy, stops breathing during sleep, weakness, weight loss - EENT Eyes: Absent: blurry vision, loss of vision Ears: Absent: decreased hearing, ear pain Nose, mouth and throat: Absent: dysphagia, epistaxis, neck pain, sinus pressure , sore throat, throat swelling, tongue swelling, vertigo - Cardiovascular Cardiovascular: Present: dyspnea, dyspnea on exertion, edema, orthopnea, PND. Absent: chest pain at rest, chest pain with activity, radiating jaw, neck or arm pain, lightheadedness, palpitations - Respiratory Respiratory: Present: dyspnea on exertion. Absent: cough, hemoptysis, wheezing , snoring, change in phlegm color - Gastrointestinal Gastrointestinal: Absent: abdominal pain, bloating, constipation, cramping, diarrhea, early satiety, hematemesis, hematochezia, melena, nausea, vomiting, jaundice - Genitourinary Genitourinary: Absent: dysuria, flank pain, hematuria - Musculoskeletal Musculoskeletal: Absent: arthralgias, limited range of motion, myalgias - Neurological Neurological: Absent: abnormal gait, abnormal speech, confusion, dizziness, syncope, tremor(s) - Psychiatric Psychiatric: Absent: anxiety, depression - Endocrine Endocrine: Absent: cold intolerance, heat intolerance - Hematologic/Lymphatic Hematologic/Lymphatic: Absent: easy bleeding, easy bruising Medical,Surgical,& Family Hx - Medical History Cardio: History of: Cardiac Dysrhythmia, CHF (NICM systolic and diastolic HF NYHA III), Hypertension, Pacemaker, Cardiovascular Problems No history of: CAD, VA, PVD Psychological: History of: Psychiatric/Substance Abuse Tx No history of: Anxiety Disorders, Depression Neurology: No history of: Cerebrovascular Accident, Dementia, Seizures, TIA Endocrine: History of: Diabetes Mellitus (IDDM), Endocrine Problems (Morbid exogenous obesity) No history of: Dyslipidemia, Thyroid Disorder Rheumatology: No history of;: Gout Respiratory: History of: Obstructive Sleep Apnea, Pulmonary Hypertension No history of: COPD, Pulmonary Embolism Renal: No history of: Renal Failure, Renal Problems Gastrointestinal: History of: Bowel Obstruction No history of: GERD, Hepatitis Musculoskeletal: No history of: Back/Neck Problems Hematology: No history of: Anemia, Blood Transfusion Reaction, Clotting Problems, Hematologic Cancer Other: History of: Miscellaneous Medical Problems No history of: Cancer, HIV - Surgical History Cardiac Surgeries: Sugical HX of: Cardiac Catheterization, Internal Defibrillator (biventricular AICD - September 2013) Patient Denies: Cardiac Surgery, Carotid Endarterectomy Neurologic Surgeries: Patient denies: Neurologic Surgery Abdominal Surgeries: Surgical HX of: Abdominal Surgery Reproductive Surgeries: Surgical HX of;: Section, Hysterectomy (partial ) Patient denies;: Genitourinary Surgery - Family History Family History: Reports;: Family Diabetes, Family Hypertension - Social History Smoking Status: Current some day smoker Time spent discussing smoking cessation with patient: 3 to 10 minutes Frequency of Alcohol Use: None Type of Drug Use: None Functional capacity: independent ambulation Cardiology Physical Exam - Constitutional Vitals: Vital Signs Temp Pulse Resp BP Pulse Ox 98.0 F 93 H 18 127/90 97 01/06/17 07:43 01/06/17 07:43 01/06/17 07:43 01/06/17 07:43 01/06/17 07:43 Intake and Output 01/05/17 01/06/17 01/06/17 22:59 06:59 14:59 Intake Total 560 / 560 Balance 560 / 560 Intake: Oral 560 / 560 Other: Voiding Method Toilet # Voids 0 3 Weight 297 lb 297 lb General appearance: no acute distress, morbidly obese - Head Head exam: Present: normal inspection. Absent: atraumatic, abrasion, contusion - Eye Eye exam: Present: EOMI. Absent: periorbital swelling, scleral icterus Pupils: Present: ROSEMARY. Absent: dilated, fixed - ENT ENT exam: Present: normal external ear exam - Neck Neck exam: Absent: tenderness - Respiratory Respiratory exam: Present: rales (bibasilarly). Absent: chest wall tenderness, rhonchi, wheezes - Cardiovascular Cardiovascular exam: Present: JVD, regular rate and rhythm, systolic murmur. Absent: bradycardia, carotid bruit, tachycardia - GI/Abdominal GI/Abdominal exam: Present: normal bowel sounds, soft. Absent: distended, firm , guarding, tenderness - Extremities Exam Extremities exam: Present: normal capillary refill, full ROM, edema (2-3+ pitting edema), other (upper and lower extremity pulses present, palpable 2-3+ throughout). Absent: calf tenderness - Back Exam Back exam: Present: normal inspection. Absent: CVA tenderness (L), CVA tenderness (R) - Neurological Exam Neurological exam: Present: alert, oriented X3, other (grossly intact; no resting tremor) - Psychiatric Psychiatric exam: Present: normal affect, normal mood. Absent: agitated, anxious, depressed - Skin Skin exam: Present: normal color, warm, dry, intact. Absent: cyanosis, diaphoretic, mottled, pallor, rash Result/EKG - Labs CBC & BMP: 01/06/17 03:26 01/06/17 03:26 Lab Results: I have reviewed the past 24 hour labs Labs: Laboratory Results - last 24 hr 01/05/17 01/05/17 01/05/17 17:36 17:36 17:36 WBC 3.2 L RBC 4.85 Hgb 14.0 Hct 42.4 MCV 87.4 MCH 29 MCHC 33.0 RDW 15.9 Plt Count 137 MPV 11.1 Neut % (Auto) 41.9 Lymph % (Auto) 47.2 Blount % (Auto) 7.5 Eos % (Auto) 2.2 Baso % (Auto) 0.9 H Neut # (Auto) 1.4 Lymph # (Auto) 1.5 Blount # (Auto) 0.2 Eos # (Auto) 0.1 Baso # (Auto) 0.0 Immature Gran % 0.3 Nucleated RBC % 0.0 Immature Gran # 0.01 Nucleated RBCs # 0.00 Immature Plt Fraction 0.0 Sodium 140 Potassium 4.2 Chloride 105 Carbon Dioxide 30 Anion Gap 9.2 BUN 23 H Creatinine 1.20 H GFR Calculation 92 BUN/Creatinine Ratio 19.00 Glucose 80 POC Glucose Calculated Osmolality 281.4 Calcium 7.7 L Magnesium Total Bilirubin AST ALT Alkaline Phosphatase Total Creatine Kinase 154 CK-MB (CK-2) 2.0 Troponin I < 0.015 B-Natriuretic Peptide 1236 H Total Protein Albumin Globulin Albumin/Globulin Ratio Triglycerides Cholesterol LDL Cholesterol VLDL Cholesterol HDL Cholesterol Heart Disease Risk Ratio 01/05/17 01/05/17 01/06/17 20:52 21:59 03:26 WBC 3.6 L RBC 4.41 Hgb 12.9 Hct 38.7 MCV 87.8 MCH 29 MCHC 33.3 RDW 15.9 Plt Count 139 MPV 11.5 Neut % (Auto) 43.8 Lymph % (Auto) 44.8 Blount % (Auto) 8.6 Eos % (Auto) 1.4 Baso % (Auto) 1.1 H Neut # (Auto) 1.6 Lymph # (Auto) 1.6 Blount # (Auto) 0.3 Eos # (Auto) 0.1 Baso # (Auto) 0.0 Immature Gran % 0.3 Nucleated RBC % 0.0 Immature Gran # 0.01 Nucleated RBCs # 0.00 Immature Plt Fraction 0.0 Sodium Potassium Chloride Carbon Dioxide Anion Gap BUN Creatinine GFR Calculation BUN/Creatinine Ratio Glucose POC Glucose 72 L Calculated Osmolality Calcium Magnesium Total Bilirubin AST ALT Alkaline Phosphatase Total Creatine Kinase 150 CK-MB (CK-2) 1.7 Troponin I < 0.015 B-Natriuretic Peptide Total Protein Albumin Globulin Albumin/Globulin Ratio Triglycerides Cholesterol LDL Cholesterol VLDL Cholesterol HDL Cholesterol Heart Disease Risk Ratio 01/06/17 01/06/17 01/06/17 03:26 03:26 03:26 WBC RBC Hgb Hct MCV MCH MCHC RDW Plt Count MPV Neut % (Auto) Lymph % (Auto) Blount % (Auto) Eos % (Auto) Baso % (Auto) Neut # (Auto) Lymph # (Auto) Blount # (Auto) Eos # (Auto) Baso # (Auto) Immature Gran % Nucleated RBC % Immature Gran # Nucleated RBCs # Immature Plt Fraction Sodium 141 Potassium 3.9 Chloride 103 Carbon Dioxide 29 Anion Gap 12.9 BUN 20 H Creatinine 1.00 GFR Calculation 119 BUN/Creatinine Ratio 20.00 Glucose 92 POC Glucose Calculated Osmolality 283.3 Calcium 7.5 L Magnesium 1.1 L Total Bilirubin 1.60 H AST 26 ALT 22 Alkaline Phosphatase 99 Total Creatine Kinase 133 CK-MB (CK-2) 2.0 Troponin I < 0.015 B-Natriuretic Peptide 905 H Total Protein 6.0 L Albumin 2.8 L Globulin 3.2 Albumin/Globulin Ratio 0.8 L Triglycerides 35 Cholesterol 140 LDL Cholesterol 91.0 VLDL Cholesterol 7.0 HDL Cholesterol 45 Heart Disease Risk Ratio 3.11 01/06/17 07:05 WBC RBC Hgb Hct MCV MCH MCHC RDW Plt Count MPV Neut % (Auto) Lymph % (Auto) Blount % (Auto) Eos % (Auto) Baso % (Auto) Neut # (Auto) Lymph # (Auto) Blount # (Auto) Eos # (Auto) Baso # (Auto) Immature Gran % Nucleated RBC % Immature Gran # Nucleated RBCs # Immature Plt Fraction Sodium Potassium Chloride Carbon Dioxide Anion Gap BUN Creatinine GFR Calculation BUN/Creatinine Ratio Glucose POC Glucose 102 Calculated Osmolality Calcium Magnesium Total Bilirubin AST ALT Alkaline Phosphatase Total Creatine Kinase CK-MB (CK-2) Troponin I B-Natriuretic Peptide Total Protein Albumin Globulin Albumin/Globulin Ratio Triglycerides Cholesterol LDL Cholesterol VLDL Cholesterol HDL Cholesterol Heart Disease Risk Ratio - Diagnostic Findings Procedure: Chest x-ray: image reviewed by me, report reviewed by me - EKG EKG results: interpreted by me, no acute changes (Ventricularly paced) ITaco Attila, MD, personally performed the services described in this documentation, ascribed by Luna Wilson RN in my presence, and it is both accurate and complete .
[2017-01-06] MEDS ORDERED: ALBUTEROL 2.5 MG/3 ML NEB RESP TX PRN (20:00)
[2017-01-06] MEDS: INSULIN GLARGINE 100 UNIT/ML SUBCUT SCH (20:22)
[2017-01-06] MEDS: CARVEDILOL 3.125 MG TABLET PO SCH (20:22)
[2017-01-06] MEDS: SACUBITRIL/VALSARTAN 49-51 MG TABLET PO SCH (20:22)
[2017-01-06] MEDS: ALBUTEROL 1.25 MG/3 ML NEB RESP TX SCH (21:02)
[2017-01-07] MEDS: NITROGLYCERIN 2% OINT 1 INCH/GM PACK TOP SCH ×4 (02:07→17:42)
[2017-01-07 04:35] LABS: Calcium 7.4 MG/DL (8.5-10.1); Magnesium 1.7 MG/DL (1.8-2.4); Osmolality,Calculated 278.7 MOS/KG (273-304); Potassium 3.6 MMOL/L (3.5-5.1)
[2017-01-07] MEDS: MAGNESIUM SULF RIDER 2 GM in PREMIX 1 EACH IV PRN (05:18)
[2017-01-07] MEDS: ALBUTEROL 1.25 MG/3 ML NEB RESP TX SCH ×3 (06:57→20:29)
[2017-01-07] MEDS: INSULIN REGULAR 100 UNIT/ML SUBCUT SCH ×4 (08:18→21:44)
[2017-01-07] MEDS: ASPIRIN EC 81 MG TABLET PO SCH (08:39)
[2017-01-07] MEDS: SACUBITRIL/VALSARTAN 49-51 MG TABLET PO SCH ×2 (08:39→21:43)
[2017-01-07] MEDS: FUROSEMIDE 40 MG/4 ML VIAL IV SCH ×2 (08:39→16:06)
[2017-01-07] MEDS: SPIRONOLACTONE 25 MG TABLET PO SCH (08:40)
[2017-01-07] MEDS: PANTOPRAZOLE 40 MG TABLET PO SCH (08:40)
[2017-01-07] MEDS: CARVEDILOL 3.125 MG TABLET PO SCH ×2 (08:40→16:06)
--- NOTE | 2017-01-07 16:21 | Cardiology Progress Note ---
Steve Colon Vanessa, RN, am scribing for, and in the presence of, Jeffrey España MD 16 :20. Assessment and Plan - Time spent with patient Time spent with patient: Greater than 30 minutes (1) CHF (congestive heart failure), NYHA class III Status: Chronic Assessment and plan: 36 year old BF with PMHx HTN, DM, morbid obesity, CHARLIE, medical noncompliance, tobacco use. Patient has a NICM, EF 10%, chronic systolic CHF, post biventricular AICD implant in 2013. Now with recurrent admission for CHF exacerbation after presenting with increasing dyspnea on exertion and lower extremity edema for 2 weeks. Admits to missing medications. Echo in November with grade 3 diastolic dysfunction, mild to moderate pulmonary HTN with PAP 46 mmHg, four chamber cardiac enlargement. EKG: SR, bivP ASSESSMENT/PLAN: 1. CHF-acute on chronic, NYHA class IV. Continue IV diuresis and Entresto. Oxygenating better, still has significant peripheral edema. 2. HTN-well controlled today. 3. ASSEMBLING FABRICATOR-nonischemic, EF 10% 4. Normal BRASS BUFFER-D function 5. CHARLIE-HST last night. Appreciate sleep input 6. HYPOMAGNESEMIA- cont repletion Current Visit: No Qualifiers: Congestive heart failure type: combined Congestive heart failure chronicity : acute on chronic Qualified Code(s): I50.43 - Acute on chronic combined systolic (congestive) and diastolic (congestive) heart failure (2) Biventricular implantable cardioverter-defibrillator in situ Status: Chronic Assessment and plan: SEE PLAN OF CARE LISTED ABOVE. Current Visit: Yes (3) HTN (hypertension) Status: Chronic Assessment and plan: SEE PLAN OF CARE LISTED ABOVE. Current Visit: Yes Qualifiers: Hypertension type: essential hypertension Qualified Code(s): I10 - Essential (primary) hypertension (4) Nonischemic cardiomyopathy Status: Chronic Assessment and plan: SEE PLAN OF CARE LISTED ABOVE. Current Visit: Yes (5) CHARLIE (obstructive sleep apnea) Status: Chronic Assessment and plan: SEE PLAN OF CARE LISTED ABOVE. Current Visit: Yes (6) Obesity (BMI 35.0-39.9 without comorbidity) Status: Chronic Assessment and plan: SEE PLAN OF CARE LISTED ABOVE. Current Visit: Yes (7) Pulmonary HTN Status: Chronic Assessment and plan: SEE PLAN OF CARE LISTED ABOVE. Current Visit: No (8) Diabetes mellitus Status: Chronic Assessment and plan: SEE PLAN OF CARE LISTED ABOVE. Current Visit: No Qualifiers: Diabetes mellitus type: type 2 Diabetes mellitus complication status: without complication (9) H/O medication noncompliance Status: Chronic Assessment and plan: SEE PLAN OF CARE LISTED ABOVE. Current Visit: No (10) Hypomagnesemia Status: Acute Assessment and plan: SEE PLAN OF CARE LISTED ABOVE. Current Visit: Yes Cardiology - PN: Subj Interval history: DIRECTOR FRANCHISE SALES: DR. FOOTE SUMMARY: Ms. Espinal, 36 year old BF, PMHx morbid exogenous obesity, hypertension, diabetes obstructive sleep apnea, continues to use tobacco. She has a nonischemic cardiomyopathy with acute on chronic systolic CHF, NYHA class III due to reduced EF 10%. History of NSVT and now status post biventricular AICD implant per Dr. Foote in September 2013. History of medical noncompliance also. Initiated on low dose Entresto in April 2016 per primary zipper cutter. Patient has had a couple hospitalizations this year for CHF exacerbation with most recent discharge November 28 after 2 day admission, good response to diuresis. Last seen in [facility] in October 2016 with ICD interrogation also ( some NSVT but no shocks). Now admitted to telemetry unit after presenting to ED yesterday evening complaining of gradually worsening dyspnea on exertion and swelling of bilateral lower extremities and knees. Chest x-ray stable cardiomegaly and clear. BNP 1236. EKG with ventricular pacing, LBBB. Last echocardiogram in November 2016 during hospital admission- EF 10%, grade 3 diastolic dysfunction, mild to moderate pulmonary HTN with PAP 46 mmHg, four chamber cardiac enlargement. Venous doppler US of BLEs during last admit negative for DVT finding. She is admitted to cardiology service. Admitted to medication noncompliance at home. Since admission, she has received aggressive IV diuresis with some improvement. Home medications have been restarted. 2016: Patient sitting up on side of the bed this morning in no acute respiratory distress. Completed HST overnight, await results. No significant improvement of lower extremity edema, and appears to be extended to mid thigh area. Encouraged ambulation and activity to help reduce swelling. No chest pain. Feels her breathing is a bit better today, but says she did not rest very well last night. Possibly due to HST device. SBP 110-120 mmHg. Remains mildly hypomagnesemic, 1.7 today. Renal function stable with creatinine 1.1. Lung sounds slightly more coarse today. Continue IV diuresis. Exam (Progress Note) - Constitutional Vitals: Period Temp Pulse Resp BP Sys/Jaimes Pulse Ox Last 24 Hr 98.1 F-98.8 F 74-94 18-20 102-127/50-95 92-100 Exam: General appearance: no acute distress, morbidly obese - Head Head exam: Present: normal inspection. Absent: atraumatic, abrasion, contusion - Eye Eye exam: Present: EOMI. Absent: periorbital swelling, scleral icterus Pupils: Present: ROSEMARY. Absent: dilated, fixed - ENT ENT exam: Present: normal external ear exam - Neck Neck exam: Absent: tenderness - Respiratory Respiratory exam: Present: rales (bibasilarly-slightly worsened today). Absent : chest wall tenderness, rhonchi, wheezes - Cardiovascular Cardiovascular exam: Present: JVD, regular rate and rhythm, systolic murmur. Absent: bradycardia, carotid bruit, tachycardia - GI/Abdominal GI/Abdominal exam: Present: normal bowel sounds, soft. Absent: distended, firm , guarding, tenderness - Extremities Exam Extremities exam: Present: normal capillary refill, full ROM, edema (2-3+ pitting edema), edema extended into mid thigh area, other (upper and lower extremity pulses present, palpable 2-3+ throughout). Absent: calf tenderness - Back Exam Back exam: Present: normal inspection. Absent: CVA tenderness (L), CVA tenderness (R) - Neurological Exam Neurological exam: Present: alert, oriented X3, other (grossly intact; no resting tremor) - Psychiatric Psychiatric exam: Present: normal affect, normal mood. Absent: agitated, anxious, depressed - Skin Skin exam: Present: normal color, warm, dry, intact. Absent: cyanosis, diaphoretic, mottled, pallor, rash Result/EKG - Labs CBC & BMP: 01/06/17 03:26 01/07/17 02:22 Lab Results: I have reviewed the past 24 hour labs Labs: Laboratory Results - last 24 hr 01/06/17 01/06/17 01/06/17 14:37 14:47 15:00 Sodium Potassium Chloride Carbon Dioxide Anion Gap BUN Creatinine GFR Calculation BUN/Creatinine Ratio Glucose POC Glucose 137 H Calculated Osmolality Calcium Magnesium 1.6 L Urine Color Yellow Urine Appearance Clear Urine pH 5.0 Ur Specific Merrill 1.009 Urine Protein Negative Urine Glucose (UA) Negative Urine Ketones Negative Urine Blood Negative Urine Nitrate Negative Urine Bilirubin Negative Urine Urobilinogen 4.0 H Urine Leukocytes Negative Urine WBC <1 Ur Squamous Epith Cells Occasional Hyaline Casts 8 Urine Mucus Occasional Ur Culture Indicated? Not indicated 01/06/17 01/07/17 01/07/17 18:41 02:22 07:52 Sodium 138 Potassium 3.6 Chloride 102 Carbon Dioxide 30 Anion Gap 9.6 BUN 23 H Creatinine 1.10 H GFR Calculation 106 BUN/Creatinine Ratio 20.00 Glucose 91 POC Glucose 152 H 107 H Calculated Osmolality 278.7 Calcium 7.4 L Magnesium 1.7 L Urine Color Urine Appearance Urine pH Ur Specific Merrill Urine Protein Urine Glucose (UA) Urine Ketones Urine Blood Urine Nitrate Urine Bilirubin Urine Urobilinogen Urine Leukocytes Urine WBC Ur Squamous Epith Cells Hyaline Casts Urine Mucus Ur Culture Indicated? 01/07/17 11:47 Sodium Potassium Chloride Carbon Dioxide Anion Gap BUN Creatinine GFR Calculation BUN/Creatinine Ratio Glucose POC Glucose 135 H Calculated Osmolality Calcium Magnesium Urine Color Urine Appearance Urine pH Ur Specific Merrill Urine Protein Urine Glucose (UA) Urine Ketones Urine Blood Urine Nitrate Urine Bilirubin Urine Urobilinogen Urine Leukocytes Urine WBC Ur Squamous Epith Cells Hyaline Casts Urine Mucus Ur Culture Indicated? - EKG EKG results: interpreted by me, no acute changes (Ventricular paced, chronic LBBB) Specialty Discharge - Follow Up or Referrals Taco Colon Attila, MD, personally performed the services described in this documentation, ascribed by Luna Wilson RN in my presence, and it is both accurate and complete .
--- NOTE | 2017-01-07 17:43 | Sleep Medicine Progress Note ---
Assessment and Plan (1) CHARLIE (obstructive sleep apnea) Status: Chronic Assessment and plan: This patient did indeed have obstructive sleep apnea of moderate severity with some severe O2 desaturation. Auto titration CPAP will be initiated tonight. We will follow-up response. Current Visit: Yes (2) Systolic and diastolic CHF, acute on chronic Status: Acute Current Visit: Yes (3) HTN (hypertension) Status: Chronic Current Visit: Yes Qualifiers: Hypertension type: essential hypertension Qualified Code(s): I10 - Essential (primary) hypertension (4) Diabetes mellitus Status: Chronic Current Visit: No Qualifiers: Diabetes mellitus type: type 2 Diabetes mellitus complication status: without complication Sleep Medicine Subjective Interval history: Patient did undergo home sleep testing last night. This did reveal moderate obstructive sleep apnea with some severe O2 desaturations. She had a respiratory event index of 22.9 and did spend 86 minutes of her sleep with O2 sats of less than 90% and did desat to lows of 64%. I reviewed these findings with her to her understanding. We will initiate auto titration CPAP tonight. Most of these events appear to be more obstructive in nature and I think this bodes well for her. Central sleep apnea would have been a more poor prognostic sign. Exam (Progress Note) - Constitutional Vitals: Period Temp Pulse Resp BP Sys/Jaimes Pulse Ox Last 24 Hr 98.1 F-98.8 F 74-94 16-20 102-127/50-95 92-100 Results - Labs CBC & BMP: 01/06/17 03:26 01/07/17 02:22 Specialty Discharge - Follow Up or Referrals
[2017-01-07] MEDS: INSULIN GLARGINE 100 UNIT/ML SUBCUT SCH (21:43)
[2017-01-08] MEDS: NITROGLYCERIN 2% OINT 1 INCH/GM PACK TOP SCH ×4 (00:48→18:32)
[2017-01-08] MEDS: ALBUTEROL 1.25 MG/3 ML NEB RESP TX SCH ×3 (07:24→21:11)
[2017-01-08] MEDS: INSULIN REGULAR 100 UNIT/ML SUBCUT SCH ×4 (08:22→21:45)
[2017-01-08] MEDS: PANTOPRAZOLE 40 MG TABLET PO SCH (08:59)
[2017-01-08] MEDS: CARVEDILOL 3.125 MG TABLET PO SCH ×2 (08:59→16:12)
[2017-01-08] MEDS: SPIRONOLACTONE 25 MG TABLET PO SCH (08:59)
[2017-01-08] MEDS: ASPIRIN EC 81 MG TABLET PO SCH (09:00)
[2017-01-08] MEDS: FUROSEMIDE 40 MG/4 ML VIAL IV SCH (09:00)
[2017-01-08] MEDS: SACUBITRIL/VALSARTAN 49-51 MG TABLET PO SCH ×2 (09:36→21:44)
[2017-01-08 11:27] LABS: Calcium 7.9 MG/DL (8.5-10.1); Magnesium 1.5 MG/DL (1.8-2.4); Osmolality,Calculated 278.4 MOS/KG (273-304); Potassium 3.9 MMOL/L (3.5-5.1)
--- NOTE | 2017-01-08 13:19 | Sleep Medicine Progress Note ---
Assessment and Plan (1) CHARLIE (obstructive sleep apnea) Status: Chronic Assessment and plan: We will continue CPAP therapy and auto titration mode for moderate obstructive sleep apnea with significant O2 desaturation. Current Visit: Yes (2) Systolic and diastolic CHF, acute on chronic Status: Acute Current Visit: Yes (3) HTN (hypertension) Status: Chronic Current Visit: Yes Qualifiers: Hypertension type: essential hypertension Qualified Code(s): I10 - Essential (primary) hypertension (4) Diabetes mellitus Status: Chronic Current Visit: No Qualifiers: Diabetes mellitus type: type 2 Diabetes mellitus complication status: without complication Sleep Medicine Subjective Interval history: Patient states that she slept poorly last night and only kept her CPAP machine on for over an hour. It did not bother her and she did not mind it at all. She states that she will try again tonight and seems to be very open to CPAP therapy. She does realize she has significant sleep apnea and wants to be treated. Exam (Progress Note) - Constitutional Vitals: Period Temp Pulse Resp BP Sys/Jaimes Pulse Ox Last 24 Hr 97.4 F-98.6 F 75-90 16-20 103-120/64-84 94-99 Exam: She is alert and responsive in no acute distress. Oropharynx with a class III Mallampati exam. Neck is supple without adenopathy or thyromegaly. Chest with fair air movement without significant wheeze or rhonchi. Cardiac exam reveals a regular rhythm without murmur or gallop. Abdomen obese nontender extremities with pitting edema. Neurologically, grossly intact. Results - Labs CBC & BMP: 01/06/17 03:26 01/08/17 10:38 Lab Results: I have reviewed the past 24 hour labs Specialty Discharge - Follow Up or Referrals
--- NOTE | 2017-01-08 15:54 | Cardiology Progress Note ---
tSeve Colon Vanessa, RN, am scribing for, and in the presence of, Jeffrey España MD 15 :54. Assessment and Plan - Time spent with patient Time spent with patient: Greater than 30 minutes (1) CHF (congestive heart failure), NYHA class III Status: Chronic Assessment and plan: 36 year old BF with PMHx HTN, DM, morbid obesity, CHARLIE, medical noncompliance, tobacco use. Patient has a NICM, EF 10%, chronic systolic CHF, post biventricular AICD implant in 2013. Now with recurrent admission for CHF exacerbation after presenting with increasing dyspnea on exertion and lower extremity edema for 2 weeks. Admits to missing medications. Echo in November with grade 3 diastolic dysfunction, mild to moderate pulmonary HTN with PAP 46 mmHg, four chamber cardiac enlargement. EKG: BiV pacing, SR ASSESSMENT/PLAN: 1. CHF - acute on chronic, NYHA class IV. Continue Entresto. Change to Lasix 80 mg PO twice daily today. If remains stable without significant orthopnea, plan to discharge home tomorrow 2. HTN-remains well controlled. 3. CUSTOMER SERVICE CORRESPONDENCE CLERK-nonischemic, EF 10% 4. S/P SUPERVISOR BEET END-D - shows good function 5. CHARLIE-HST shows moderate sleep apnea. CPAP started last night. Appreciate sleep medicine input. 6. HYPOMAGNESEMIA-persistent. Replete per protocol. Current Visit: No Qualifiers: Congestive heart failure type: combined Congestive heart failure chronicity : acute on chronic Qualified Code(s): I50.43 - Acute on chronic combined systolic (congestive) and diastolic (congestive) heart failure (2) Biventricular implantable cardioverter-defibrillator in situ Status: Chronic Assessment and plan: SEE PLAN OF CARE LISTED ABOVE. Current Visit: Yes (3) HTN (hypertension) Status: Chronic Assessment and plan: SEE PLAN OF CARE LISTED ABOVE. Current Visit: Yes Qualifiers: Hypertension type: essential hypertension Qualified Code(s): I10 - Essential (primary) hypertension (4) Nonischemic cardiomyopathy Status: Chronic Assessment and plan: SEE PLAN OF CARE LISTED ABOVE. Current Visit: Yes (5) CHARLIE (obstructive sleep apnea) Status: Chronic Assessment and plan: SEE PLAN OF CARE LISTED ABOVE. Current Visit: Yes (6) Obesity (BMI 35.0-39.9 without comorbidity) Status: Chronic Assessment and plan: SEE PLAN OF CARE LISTED ABOVE. Current Visit: Yes (7) Pulmonary HTN Status: Chronic Assessment and plan: SEE PLAN OF CARE LISTED ABOVE. Current Visit: No (8) Diabetes mellitus Status: Chronic Assessment and plan: SEE PLAN OF CARE LISTED ABOVE. Current Visit: No Qualifiers: Diabetes mellitus type: type 2 Diabetes mellitus complication status: without complication (9) H/O medication noncompliance Status: Chronic Assessment and plan: SEE PLAN OF CARE LISTED ABOVE. Current Visit: No (10) Hypomagnesemia Status: Acute Assessment and plan: SEE PLAN OF CARE LISTED ABOVE. Current Visit: Yes Cardiology - PN: Subj Interval history: COATER OPERATOR: DR. FOOTE SUMMARY: Ms. Espinal, 36 year old BF, PMHx morbid exogenous obesity, hypertension, diabetes obstructive sleep apnea, continues to use tobacco. She has a nonischemic cardiomyopathy with acute on chronic systolic CHF, NYHA class III due to reduced EF 10%. History of NSVT and now status post biventricular AICD implant per Dr. Foote in September 2013. History of medical noncompliance also. Initiated on low dose Entresto in April 2016 per primary custody assistant. Patient has had a couple hospitalizations this year for CHF exacerbation with most recent discharge November 28 after 2 day admission, good response to diuresis. Last seen in [facility] in October 2016 with ICD interrogation also ( appropriate function). Now admitted to telemetry unit after presenting to ED yesterday evening complaining of gradually worsening dyspnea on exertion and swelling of bilateral lower extremities and knees. Chest x-ray stable cardiomegaly and clear. BNP 1236. EKG with ventricular pacing, LBBB. Last echocardiogram in November 2016 during hospital admission- EF 10%, grade 3 diastolic dysfunction, mild to moderate pulmonary HTN with PAP 46 mmHg, four chamber cardiac enlargement. Venous doppler US of BLEs during last admit negative for DVT finding. She is admitted to cardiology service. Admitted to medication noncompliance at home. Since admission, she has received aggressive IV diuresis with some improvement. Home medications have been restarted. 2016: Lying in bed comfortably. Reports she slept better last night and continues to feel better today. Not requiring supplemental oxygen. No chest pain. Lower extremity and thigh edema appears to be improving. Urine output is good. SBP 105-120 mmHg. Sinus rhythm with BiV pacing per antisqueak applier. Renal function stable. Persistent hypomagnesemia, 1.5. Exam (Progress Note) - Constitutional Vitals: Period Temp Pulse Resp BP Sys/Jaimes Pulse Ox Last 24 Hr 97.4 F-98.6 F 75-94 16-20 102-120/50-79 94-99 Exam: General appearance: no acute distress, morbidly obese - Head Head exam: Present: normal inspection. Absent: atraumatic, abrasion, contusion - Eye Eye exam: Present: EOMI. Absent: periorbital swelling, scleral icterus Pupils: Present: ROSEMARY. Absent: dilated, fixed - ENT ENT exam: Present: normal external ear exam - Neck Neck exam: Absent: tenderness - Respiratory Respiratory exam: Present: coarse but overall clear today. Absent: chest wall tenderness, rhonchi, wheezes - Cardiovascular Cardiovascular exam: Present: improved JVD, regular rate and rhythm, systolic murmur. Absent: bradycardia, carotid bruit, tachycardia - GI/Abdominal GI/Abdominal exam: Present: normal bowel sounds, soft. Absent: distended, firm , guarding, tenderness - Extremities Exam Extremities exam: Present: normal capillary refill, full ROM, edema (1-2+ pitting edema), thigh edema is improving, other (upper and lower extremity pulses present, palpable 2-3+ throughout). Absent: calf tenderness - Back Exam Back exam: Present: normal inspection. Absent: CVA tenderness (L), CVA tenderness (R) - Neurological Exam Neurological exam: Present: alert, oriented X3, other (grossly intact; no resting tremor) - Psychiatric Psychiatric exam: Present: normal affect, normal mood. Absent: agitated, anxious, depressed - Skin Skin exam: Present: normal color, warm, dry, intact. Absent: cyanosis, diaphoretic, mottled, pallor, rash Result/EKG - Labs CBC & BMP: 01/06/17 03:26 01/08/17 10:38 Lab Results: I have reviewed the past 24 hour labs Labs: Laboratory Results - last 24 hr 01/07/17 01/07/17 01/07/17 11:47 15:39 18:44 Sodium Potassium Chloride Carbon Dioxide Anion Gap BUN Creatinine GFR Calculation BUN/Creatinine Ratio Glucose POC Glucose 135 H 131 H 145 H Calculated Osmolality Calcium Magnesium 01/08/17 01/08/17 07:51 10:38 Sodium 140 Potassium 3.9 Chloride 101 Carbon Dioxide 34 H Anion Gap 8.9 BUN 16 Creatinine 0.90 GFR Calculation 134 BUN/Creatinine Ratio 17.00 Glucose 87 POC Glucose 87 Calculated Osmolality 278.4 Calcium 7.9 L Magnesium 1.5 L - EKG EKG results: interpreted by me, no acute changes EKG shows: sinus rhythm (with ventricular pacing) Specialty Discharge - Follow Up or Referrals Taco Colon Attila, MD, personally performed the services described in this documentation, ascribed by Luna Wilson RN in my presence, and it is both accurate and complete [id number] .
[2017-01-08] MEDS: FUROSEMIDE 80 MG TABLET PO SCH (16:11)
[2017-01-08] MEDS: INSULIN GLARGINE 100 UNIT/ML SUBCUT SCH (21:44)
[2017-01-09] MEDS: NITROGLYCERIN 2% OINT 1 INCH/GM PACK TOP SCH ×3 (00:12→13:39)
[2017-01-09 04:50] LABS: Calcium 7.9 MG/DL (8.5-10.1); Magnesium 1.3 MG/DL (1.8-2.4); Osmolality,Calculated 279.3 MOS/KG (273-304); Potassium 3.7 MMOL/L (3.5-5.1)
[2017-01-09] MEDS: MAGNESIUM SULF RIDER 4 GM in PREMIX 1 EACH IV PRN (05:11)
[2017-01-09] MEDS: ALBUTEROL 1.25 MG/3 ML NEB RESP TX SCH (08:12)
[2017-01-09] MEDS: INSULIN REGULAR 100 UNIT/ML SUBCUT SCH ×2 (09:31→13:38)
[2017-01-09] MEDS: SACUBITRIL/VALSARTAN 49-51 MG TABLET PO SCH (09:32)
[2017-01-09] MEDS: SPIRONOLACTONE 25 MG TABLET PO SCH (09:33)
[2017-01-09] MEDS: FUROSEMIDE 80 MG TABLET PO SCH (09:33)
[2017-01-09] MEDS: ASPIRIN EC 81 MG TABLET PO SCH (09:33)
[2017-01-09] MEDS: PANTOPRAZOLE 40 MG TABLET PO SCH (09:33)
[2017-01-09] MEDS: CARVEDILOL 3.125 MG TABLET PO SCH (09:33)
[2017-01-09 12:21] VITALS: BP 105/62
--- NOTE | 2017-01-09 12:40 | Sleep Medicine Progress Note ---
Assessment and Plan (1) CHARLIE (obstructive sleep apnea) Status: Chronic Assessment and plan: Continue auto titration CPAP at discharge with follow-up in sleep clinic for compliance and results. Thank you for this consult. Current Visit: Yes (2) Systolic and diastolic CHF, acute on chronic Status: Acute Current Visit: Yes (3) HTN (hypertension) Status: Chronic Current Visit: Yes Qualifiers: Hypertension type: essential hypertension Qualified Code(s): I10 - Essential (primary) hypertension (4) Diabetes mellitus Status: Chronic Current Visit: No Qualifiers: Diabetes mellitus type: type 2 Diabetes mellitus complication status: without complication Sleep Medicine Subjective Interval history: This patient did better with CPAP last night. She spent 3 hours and 5 minutes on CPAP and had excellent control with an average AHI of 2.9. Her average device EPAP was only 6.5. This is certainly encouraging. She has a severe cardiomyopathy and moderate to severe sleep apnea. It is my hope that she will benefit significantly from a cardiac standpoint with treatment with CPAP therapy. I have written a prescription for CPAP for her. She needs to be set up to receive her device at discharge and will be scheduled for follow-up in sleep clinic. Exam (Progress Note) - Constitutional Vitals: Period Temp Pulse Resp BP Sys/Jaimes Pulse Ox Last 24 Hr 97.6 F-98.6 F 74-86 14-20 105-127/18-84 94-100 Exam: She is alert and responsive in no acute distress. Oropharynx with a class III Mallampati exam. Neck is supple without adenopathy or thyromegaly. Chest with fair air movement without significant wheeze or rhonchi. Cardiac exam reveals a regular rhythm without murmur or gallop. Abdomen obese nontender extremities with pitting edema. Neurologically, grossly intact. Results - Labs CBC & BMP: 01/06/17 03:26 01/09/17 03:58 Lab Results: I have reviewed the past 24 hour labs Specialty Discharge - Follow Up or Referrals
[2017-01-09] MEDS ORDERED: POTASSIUM CHLORIDE 20 MEQ TABLET PO SCH (14:00)
--- NOTE | 2017-01-09 14:30 | Discharge Summary ---
Steve Colon Vanessa, RN, am scribing for, and in the presence of, Jeffrey España MD 14 :30. Hospital Course - Hospital Course Hospital Course: REGULATORY LAW SPECIALIST: DR. FOOTE Ms. Espinal, 36 year old BF, PMHx morbid exogenous obesity, hypertension, diabetes obstructive sleep apnea, continues to use tobacco. She has a nonischemic cardiomyopathy with acute on chronic combined CHF, NYHA class III due to reduced EF 10%. History of NSVT and now status post biventricular AICD implant per Dr. Foote in September 2013. History of medical noncompliance also. Initiated on low dose Entresto in April 2016 per primary in store marketing representative. Patient has had a couple hospitalizations this year for CHF exacerbation with most recent discharge November 28 after 2 day admission, good response to diuresis. Admitted to [facility] telemetry on January 05 complaining of gradually worsening dyspnea on exertion and swelling of bilateral lower extremities and knees. EKG with ventricular pacing, LBBB and no ischemic findings. Most recent echo in November 2016 during hospital admission- EF 10%, grade 3 diastolic dysfunction, mild to moderate pulmonary HTN with PAP 46 mmHg, four chamber cardiac enlargement. Venous doppler US of BLEs during last admit negative for DVT finding. Admitted to medication noncompliance at home. Home medications were restarted. Patient was also evaluated by sleep medicine, had HST, and found to have moderate sleep apnea. Started on nightly CPAP and adjusted per Dr. Ramos. Dr. Ramos has provided a prescription for CPAP for her upon discharge and will follow up with sleep clinic. Cardiac rehab also consulted, and they saw patient for risk factor modification. She has responded well to IV diuresis, was transitioned back to PO Lasix. Has had with hypomagnesemia, not symptomatic. Also borderline hypokalemic. Patient has increased her activity over the last couple days and has now worked her way up to ambulating to different floors of the hospital with only minor shortness of breath. At this time, she is felt to have reached maximum hospital benefit, and will be discharged home. As she has had hypomagnesemia with borderline hypokalemia. Will be given a prescription for MagOx 800 mg PO twice daily, and KDur will be increased to 40 meq PO daily. Will also increase Lasix to 80 mg PO twice daily, and will be given prescription. Adding aspiring 81 mg PO daily with prescription as well. All other home medications resumed at previous dosages. Follow up with Dr. Foote in 2 weeks with EKG, CBC, BMP, Mg+. -We will continue p.o. diuresis, Lasix 80 mg p.o. twice daily -Continue electrolyte repletion, potassium, magnesium. Repeat BMP/magnesium in 2 weeks. -Appropriate BILINGUAL TRAINER function. -Sleep medicine consult was obtained, CPAP was adjusted -Importance of adherence to CPAP and medications, low-sodium diet was discussed -Follow-up with Dr. Erickson in 2 weeks - Time spent with patient Time with patient DS: Greater than 30 minutes Time spent discussing smoking cessation with patient: 3 to 10 minutes Diagnosis - Discharge Diagnosis (1) CHF (congestive heart failure), NYHA class III Status: Chronic (2) Biventricular implantable cardioverter-defibrillator in situ Status: Chronic (3) HTN (hypertension) Status: Chronic (4) Nonischemic cardiomyopathy Status: Chronic (5) CHARLIE (obstructive sleep apnea) Status: Chronic (6) Obesity (BMI 35.0-39.9 without comorbidity) Status: Chronic (7) Pulmonary HTN Status: Chronic (8) Diabetes mellitus Status: Chronic (9) H/O medication noncompliance Status: Chronic (10) Hypomagnesemia Status: Acute Specialty Discharge - Follow Up or Referrals Follow up with: Grace Foote DO [Physician] - 2 Weeks (Follow-up in [facility] with BMP, magnesium level, EKG) Discharge Plan - Discharge Data Disposition: Disch To Home/Self Care Condition at Discharge: Stable Discharge Diet: advance to your usual diet, low fat, low cholesterol Activity: resume usual activities as tolerated Hygiene: no restrictions Weight Bearing at Discharge: full weight bearing Driving: no restrictions Contact your physician if you experience:: fever over 101, Difficulty voiding, Redness or swelling, Nausea/Vomiting, Shortness of breath, Bleeding, pain uncontrolled by pain medications - Discharge Medications New RX: Magnesium Oxide 800 mg PO BID #120 tablet RX: Potassium Chloride Cap/Tab [K Dur] 40 meq PO DAILY #60 tablet RX: Aspirin EC Tab 81 mg PO DAILY #30 tablet RX: Furosemide Tab [Lasix Tab] 80 mg PO BID DIURETIC #60 tablet Continue RX: Carvedilol [Coreg] 3.125 mg PO BID #60 tablet RX: Insulin Detemir [Levemir] 20 unit SUBCUT BID #0 RX: Albuterol Inhaler [Proventil Inhaler] 2 puff INH Q4H PRN #1 inhaler PRN Reason: Shortness Of Breath/Wheezing RX: Sacubitril/Valsartan [Entresto 24 mg-26 mg Tablet] 1 tablet PO BID RX: Spironolactone [Aldactone] 25 mg PO DAILY RX: Albuterol Neb [Proventil Neb] 1.25 mg RESP TX TID #90 neb Discontinued RX: Furosemide Tab [Lasix Tab] 60 mg PO BID DIURETIC #90 tablet Potassium Chloride Cap/Tab [K Dur] 10 meq PO DAILY #30 tablet - Follow Up or Referral Follow Up: Grace Foote DO [Physician] - 2 Weeks (Follow-up in [facility] with BMP, magnesium level, EKG) - Forms/Instructions Instructions: Effects of Smoking, Alcohol, and Drugs on (DC), How to Stop Smoking (GEN), Heart Healthy Diet (GEN), Cigarette Smoking and Your Health (GEN) Exam - Constitutional Vitals: Period Temp Pulse Resp BP Sys/Jaimes Pulse Ox Last 24 Hr 97.6 F-98.6 F 74-86 14-20 105-127/18-84 94-100 Exam: General appearance: no acute distress, morbidly obese - Head Head exam: Present: normal inspection. Absent: atraumatic, abrasion, contusion - Eye Eye exam: Present: EOMI. Absent: periorbital swelling, scleral icterus Pupils: Present: ROSEMARY. Absent: dilated, fixed - ENT ENT exam: Present: normal external ear exam - Neck Neck exam: Absent: tenderness - Respiratory Respiratory exam: Present: coarse but overall clear today. Absent: chest wall tenderness, rhonchi, wheezes - Cardiovascular Cardiovascular exam: Present: regular rate and rhythm, systolic murmur. Absent : bradycardia, carotid bruit, tachycardia. No JVD - GI/Abdominal GI/Abdominal exam: Present: normal bowel sounds, soft. Absent: distended, firm , guarding, tenderness - Extremities Exam Extremities exam: Present: normal capillary refill, full ROM, edema (1-2+ pitting edema), thigh edema is improving, other (upper and lower extremity pulses present, palpable 2-3+ throughout). Absent: calf tenderness - Back Exam Back exam: Present: normal inspection. Absent: CVA tenderness (L), CVA tenderness (R) - Neurological Exam Neurological exam: Present: alert, oriented X3, other (grossly intact; no resting tremor) - Psychiatric Psychiatric exam: Present: normal affect, normal mood. Absent: agitated, anxious, depressed - Skin Skin exam: Present: normal color, warm, dry, intact. Absent: cyanosis, diaphoretic, mottled, pallor, rash Discharge Results Procedures and tests throughout hospitalization: Pending Orders 01/10/17 04:00 BMP w/ Mg [Basic Metabolic Panel w/Mg] IN AM 01/11/17 04:00 BMP w/ Mg [Basic Metabolic Panel w/Mg] IN AM Labs on day of discharge: Labs from last 24 hours 01/09/17 01/09/17 01/09/17 11:49 07:53 03:58 Sodium 141 Potassium 3.7 Chloride 102 Carbon Dioxide 35 H Anion Gap 7.7 BUN 16 Creatinine 0.90 GFR Calculation 134 BUN/Creatinine Ratio 17.00 Glucose 66 L POC Glucose 107 H 85 Calculated Osmolality 279.3 Calcium 7.9 L Magnesium 1.3 L 01/08/17 01/08/17 18:56 15:11 Sodium Potassium Chloride Carbon Dioxide Anion Gap BUN Creatinine GFR Calculation BUN/Creatinine Ratio Glucose POC Glucose 98 147 H Calculated Osmolality Calcium Magnesium - Imaging and Cardiology Procedure: Chest x-ray: image reviewed by me, report reviewed by me DS: Provider Consults: 01/05/17 20:26 Consult to Case Mgmt/Social Srvs [CONS] Routine Reason for Case Mgmt/Social Srvs: Rehab 01/06/17 15:40 Consult to Sleep Center [CONS] Routine Reason for Sleep Center: Sleep Center Physician Consult Comment: evaluate for HST; Hx CHF, NICM, Bi-V, HTN, obesity 01/06/17 15:41 Consult to Cardiac Rehabilitation [CONS] Routine Reason for Cardiac Rehabilitation: Risk Factor Modification Consult Comment: weight/diet counseling Discharging clinician: Jeffrey España MD Expected date of discharge: 01/09/17 Taco Colon Attila, MD, personally performed the services described in this documentation, ascribed by Luna Wilson RN in my presence, and it is both accurate and complete [id number] .
[2017-01-09] MEDS ORDERED: MAGNESIUM OXIDE 400 MG TABLET PO SCH ×2 (15:00→21:00)
== END 2017-01-09 15:40 | disposition home or self-care (01) | DRG 292 ==
LOC: N.ED 14:59 → N.EDINP 19:31 → N.TELES 20:10
PROVIDERS: ADMIT Internal Medicine Clinical Cardiac Electrophysiology; ATTEND Internal Medicine Clinical Cardiac Electrophysiology

== ENCOUNTER 2017-09-16 04:18 | Inpatient (IN) ==
[2017-09-16] MEDS ORDERED: FUROSEMIDE 100 MG/10 ML VIAL IV STA (04:59)
[2017-09-16 05:12] LABS: Basophils % 1.3 % (0.0-0.8); Eosinophils % 0.6 % (0.00-10.9); Hemoglobin 14.6 GM/DL (12.0-16.0); Immature Granulocytes % 0.3 %; Immature Granulocytes Absolute 0.01 #; Lymphocytes # 1.5 10*3/uL (1.4-4.0); Lymphocytes % 47.4 % (21.3-54.2); Mean Corpuscular Hemoglobin 30 PG (27-34); Mean Corpuscular Volume 87.4 FL (87-102); Mean Platelet Volume 11.5 FL (9.6-12.0); Monocytes # 0.3 10*3/uL (0.11-0.8); Monocytes % 10.9 % (1.7-12.7); Neutrophils # 1.2 10*3/uL (1.4-7.4); Neutrophils % 39.5 % (38.7-73.9); Platelet Count 149 T/CUMM (130-400); Red Blood Count 4.92 MC/CUMM (3.8-5.5); Red Cell Distribution Width 15.1 % (9.3-17.3); White Blood Count 3.1 T/CUMM (4-12)
[2017-09-16 05:17] LABS: Alanine Aminotransferase 24 U/L (13-56); Albumin 2.9 G/DL (3.4-5.0); Alkaline Phosphatase 110 U/L (45-117); Aspartate Amino Transferase 32 U/L (0-37); Blood Urea Nitrogen 23 MG/DL (7-18); Calcium 7.8 MG/DL (8.5-10.1); Glucose 132 MG/DL (74-106); Osmolality,Calculated 280.7 MOS/KG (273-304); Potassium 4.3 MMOL/L (3.5-5.1); Sodium 138 MMOL/L (136-145); Total Protein 7.4 G/DL (6.4-8.3); Troponin I Only < 0.015 NG/ML (0.00-0.045)
[2017-09-16 05:36] LABS: Hypochromasia 1+; Ovalocytes Slight; Platelet Estimate Adequate
[2017-09-16] MEDS ORDERED: MAGNESIUM SULF RIDER 4 GM in PREMIX 1 EACH IV PRN (06:13)
[2017-09-16] MEDS ORDERED: DEXTROSE 50% 25 GM/50 ML VIAL IV PRN ×2 (06:13)
[2017-09-16] MEDS ORDERED: ONDANSETRON 4 MG/2 ML VIAL IV PRN (06:13)
[2017-09-16] MEDS ORDERED: MAGNESIUM SULF RIDER 2 GM in PREMIX 1 EACH IV PRN (06:13)
[2017-09-16] MEDS ORDERED: ACETAMINOPHEN 325 MG TABLET PO PRN (06:13)
[2017-09-16] MEDS ORDERED: GLUCAGON 1 MG VIAL IM PRN ×2 (06:13)
[2017-09-16] MEDS ORDERED: ALBUTEROL 2.5 MG/3 ML NEB RESP TX PRN (07:15)
[2017-09-16] MEDS: INSULIN REGULAR 100 UNIT/ML SUBCUT SCH ×4 (07:31→20:35)
[2017-09-16] MEDS: CARVEDILOL 3.125 MG TABLET PO SCH ×2 (08:32→20:34)
[2017-09-16] MEDS: INSULIN GLARGINE 100 UNIT/ML SUBCUT SCH ×2 (08:32→20:35)
[2017-09-16] MEDS: PANTOPRAZOLE 40 MG TABLET PO SCH (08:33)
[2017-09-16] MEDS: ENOXAPARIN 40 MG/0.4 ML SYRINGE SUBCUT SCH (08:33)
[2017-09-16] MEDS: SPIRONOLACTONE 25 MG TABLET PO SCH (08:33)
[2017-09-16] MEDS: ASPIRIN EC 81 MG TABLET PO SCH (08:33)
[2017-09-16] MEDS: SACUBITRIL/VALSARTAN 49-51 MG TABLET PO SCH ×2 (09:15→20:34)
[2017-09-16] MEDS: ALBUTEROL 1.25 MG/3 ML NEB RESP TX SCH ×3 (09:19→19:26)
[2017-09-16] MEDS ORDERED: FUROSEMIDE 40 MG/4 ML VIAL IV ONE (10:00)
[2017-09-16] MEDS ORDERED: POLYETHYLENE GLYCOL POWDER 17 GM PACK PO PRN (13:09)
[2017-09-16] MEDS ORDERED: BISACODYL 5 MG TABLET PO ONE (13:09)
[2017-09-16] MEDS: FUROSEMIDE 40 MG/4 ML VIAL IV SCH (16:33)
[2017-09-17 06:00] LABS: Eosinophils % 1.4 % (0.00-10.9); Hematocrit 40.4 VOL% (35.7-47.0); Hemoglobin 13.3 GM/DL (12.0-16.0); Lymphocytes # 1.3 10*3/uL (1.4-4.0); Lymphocytes % 45.7 % (21.3-54.2); Mean Corpuscular HGB Conc 32.9 GM/DL (32-36); Mean Corpuscular Hemoglobin 29 PG (27-34); Mean Platelet Volume 11.4 FL (9.6-12.0); Monocytes # 0.4 10*3/uL (0.11-0.8); Monocytes % 12.1 % (1.7-12.7); Neutrophils # 1.2 10*3/uL (1.4-7.4); Neutrophils % 39.8 % (38.7-73.9); Platelet Count 138 T/CUMM (130-400); Red Blood Count 4.59 MC/CUMM (3.8-5.5); Red Cell Distribution Width 14.6 % (9.3-17.3); White Blood Count 2.9 T/CUMM (4-12)
[2017-09-17 06:45] LABS: Calcium 7.5 MG/DL (8.5-10.1); Osmolality,Calculated 277.7 MOS/KG (273-304); Potassium 3.6 MMOL/L (3.5-5.1); Risk Ratio 4.03; VLDL CHOLESTEROL 13.2 MG/DL
[2017-09-17 06:50] LABS: Albumin 2.7 G/DL (3.4-5.0); Bilirubin,Direct 0.65 MG/DL (0.0-0.20); Bilirubin,Indirect 1.6 MG/DL (0.0-1.0); Bilirubin,Total 2.2 MG/DL (0.2-1.0); Total Protein 6.6 G/DL (6.4-8.3)
[2017-09-17] MEDS: ALBUTEROL 1.25 MG/3 ML NEB RESP TX SCH ×3 (07:01→19:28)
[2017-09-17 07:14] LABS: Hypochromasia 2+
[2017-09-17] MEDS: INSULIN REGULAR 100 UNIT/ML SUBCUT SCH ×3 (08:41→15:55)
[2017-09-17] MEDS: PANTOPRAZOLE 40 MG TABLET PO SCH (08:42)
[2017-09-17] MEDS: ASPIRIN EC 81 MG TABLET PO SCH (08:42)
[2017-09-17] MEDS: CARVEDILOL 3.125 MG TABLET PO SCH (08:42)
[2017-09-17] MEDS: ENOXAPARIN 40 MG/0.4 ML SYRINGE SUBCUT SCH (08:42)
[2017-09-17] MEDS: INSULIN GLARGINE 100 UNIT/ML SUBCUT SCH (08:42)
[2017-09-17] MEDS: SACUBITRIL/VALSARTAN 49-51 MG TABLET PO SCH (08:42)
[2017-09-17] MEDS: SPIRONOLACTONE 25 MG TABLET PO SCH (08:43)
[2017-09-17] MEDS: FUROSEMIDE 40 MG/4 ML VIAL IV SCH ×2 (08:43→16:07)
[2017-09-17 16:25] VITALS: BP 113/85
== END 2017-09-17 19:58 | disposition left against medical advice (07) | DRG 292 ==
LOC: N.ED 04:18 → N.EDINP 06:13 → N.4E 07:27
PROVIDERS: ADMIT Internal Medicine; ATTEND Internal Medicine

== ENCOUNTER 2017-10-25 17:36 | Inpatient (IN) ==
[2017-10-25 18:17] LABS: Basophils % 0.9 % (0.0-0.8); Eosinophils % 0.9 % (0.00-10.9); Hematocrit 43.8 VOL% (35.7-47.0); Hemoglobin 14.2 GM/DL (12.0-16.0); Immature Granulocytes % 0.3 %; Immature Granulocytes Absolute 0.01 #; Lymphocytes # 1.5 10*3/uL (1.4-4.0); Lymphocytes % 44.8 % (21.3-54.2); Mean Corpuscular HGB Conc 32.4 GM/DL (32-36); Mean Corpuscular Hemoglobin 29 PG (27-34); Mean Corpuscular Volume 89.4 FL (87-102); Mean Platelet Volume 10.8 FL (9.6-12.0); Monocytes # 0.2 10*3/uL (0.11-0.8); Neutrophils # 1.6 10*3/uL (1.4-7.4); Neutrophils % 46.1 % (38.7-73.9); Platelet Count 156 T/CUMM (130-400); Red Cell Distribution Width 14.9 % (9.3-17.3); White Blood Count 3.4 T/CUMM (4-12)
[2017-10-25] MEDS ORDERED: FUROSEMIDE 100 MG/10 ML VIAL IV STA (18:22)
[2017-10-25] MEDS ORDERED: MORPHINE 4 MG/1 ML VIAL IV STA (18:22)
[2017-10-25] MEDS ORDERED: ONDANSETRON 4 MG/2 ML VIAL IV STA (18:22)
[2017-10-25] MEDS ORDERED: hydrALAZINE 20 MG/1 ML VIAL IV STA (18:22)
[2017-10-25] MEDS ORDERED: NITROGLYCERIN 2% OINT 1 INCH/GM PACK TOP STA (18:22)
[2017-10-25] MEDS ORDERED: ASPIRIN 325 MG TABLET PO STA (18:22)
[2017-10-25] MEDS ORDERED: ALBUTEROL/IPRATROPIUM 3 ML NEB RESP TX STA (18:22)
[2017-10-25 18:28] LABS: INR 1.3; PT Patient Result 13.4 SECS
[2017-10-25 18:41] LABS: Alanine Aminotransferase 24 U/L (13-56); Albumin 3.1 G/DL (3.4-5.0); Alkaline Phosphatase 116 U/L (45-117); Aspartate Amino Transferase 30 U/L (0-37); Blood Urea Nitrogen 21 MG/DL (7-18); Calcium 8.6 MG/DL (8.5-10.1); Glucose 124 MG/DL (74-106); Osmolality,Calculated 278.7 MOS/KG (273-304); Potassium 4.1 MMOL/L (3.5-5.1); Sodium 138 MMOL/L (136-145); Total Protein 7.7 G/DL (6.4-8.3); Troponin I Only < 0.015 NG/ML (0.00-0.045)
[2017-10-25] MEDS ORDERED: MAGNESIUM SULF RIDER 2 GM in PREMIX 1 EACH IV STA (18:44)
[2017-10-25] MEDS ORDERED: MAGNESIUM SULF RIDER 2 GM in PREMIX 1 EACH IV PRN (19:22)
[2017-10-25] MEDS ORDERED: MAGNESIUM SULF RIDER 4 GM in PREMIX 1 EACH IV PRN (19:22)
[2017-10-25] MEDS ORDERED: ALBUTEROL 2.5 MG/3 ML NEB RESP TX PRN (19:30)
[2017-10-25] MEDS ORDERED: NAPROXEN 500 MG TABLET PO PRN (19:30)
[2017-10-25] MEDS ORDERED: LABETALOL 20 MG/4 ML SYRINGE IV PRN (19:31)
[2017-10-25] MEDS: ONDANSETRON 4 MG/2 ML VIAL IV PRN (21:15)
[2017-10-25] MEDS: ENOXAPARIN 40 MG/0.4 ML SYRINGE SUBCUT SCH (21:16)
[2017-10-25] MEDS: SACUBITRIL/VALSARTAN 49-51 MG TABLET PO SCH (21:16)
[2017-10-25] MEDS: CARVEDILOL 3.125 MG TABLET PO SCH (21:17)
[2017-10-25] MEDS: INSULIN GLARGINE 100 UNIT/ML SUBCUT SCH (21:28)
[2017-10-26] MEDS: ONDANSETRON 4 MG/2 ML VIAL IV PRN ×2 (00:20→07:39)
[2017-10-26 03:15] LABS: Basophils % 0.6 % (0.0-0.8); Eosinophils % 0.6 % (0.00-10.9); Hematocrit 39.6 VOL% (35.7-47.0); Immature Granulocytes % 0.3 %; Immature Granulocytes Absolute 0.01 #; Lymphocytes # 0.8 10*3/uL (1.4-4.0); Lymphocytes % 25.5 % (21.3-54.2); Mean Corpuscular HGB Conc 32.8 GM/DL (32-36); Mean Corpuscular Hemoglobin 29 PG (27-34); Mean Corpuscular Volume 89.4 FL (87-102); Monocytes # 0.4 10*3/uL (0.11-0.8); Monocytes % 12.9 % (1.7-12.7); Neutrophils # 1.9 10*3/uL (1.4-7.4); Neutrophils % 60.1 % (38.7-73.9); Platelet Count 143 T/CUMM (130-400); Red Blood Count 4.43 MC/CUMM (3.8-5.5); Red Cell Distribution Width 14.7 % (9.3-17.3); White Blood Count 3.2 T/CUMM (4-12)
[2017-10-26 03:32] LABS: Albumin 3.1 G/DL (3.4-5.0); Bilirubin,Total 1.6 MG/DL (0.2-1.0); Calcium 8.6 MG/DL (8.5-10.1); Osmolality,Calculated 279.5 MOS/KG (273-304); Potassium 3.8 MMOL/L (3.5-5.1); Risk Ratio 3.8; Total Protein 6.9 G/DL (6.4-8.3); VLDL CHOLESTEROL 9.8 MG/DL
[2017-10-26] MEDS: FUROSEMIDE 40 MG/4 ML VIAL IV SCH ×2 (07:39→16:56)
[2017-10-26] MEDS: CARVEDILOL 3.125 MG TABLET PO SCH ×2 (08:36→21:11)
[2017-10-26] MEDS: SPIRONOLACTONE 25 MG TABLET PO SCH (08:36)
[2017-10-26] MEDS: PANTOPRAZOLE 40 MG TABLET PO SCH (08:37)
[2017-10-26] MEDS: ASPIRIN CHEW 81 MG TABLET PO SCH (08:37)
[2017-10-26] MEDS: SACUBITRIL/VALSARTAN 49-51 MG TABLET PO SCH ×2 (08:37→21:11)
[2017-10-26] MEDS: INSULIN GLARGINE 100 UNIT/ML SUBCUT SCH ×2 (08:37→21:11)
[2017-10-26] MEDS: DICYCLOMINE 10 MG CAPSULE PO SCH (21:11)
[2017-10-26] MEDS: ENOXAPARIN 40 MG/0.4 ML SYRINGE SUBCUT SCH (21:11)
[2017-10-27] MEDS: DICYCLOMINE 10 MG CAPSULE PO SCH (09:08)
[2017-10-27] MEDS: PANTOPRAZOLE 40 MG TABLET PO SCH (09:08)
[2017-10-27] MEDS: FUROSEMIDE 40 MG/4 ML VIAL IV SCH (09:08)
[2017-10-27] MEDS: SACUBITRIL/VALSARTAN 49-51 MG TABLET PO SCH (09:08)
[2017-10-27] MEDS: CARVEDILOL 3.125 MG TABLET PO SCH (09:09)
[2017-10-27] MEDS: SPIRONOLACTONE 25 MG TABLET PO SCH (09:09)
[2017-10-27] MEDS: INSULIN GLARGINE 100 UNIT/ML SUBCUT SCH (09:09)
[2017-10-27] MEDS: ASPIRIN CHEW 81 MG TABLET PO SCH (09:09)
[2017-10-27 13:00] VITALS: BP 161/85
== END 2017-10-27 13:25 | disposition home or self-care (01) | DRG 292 ==
LOC: N.ED 17:36 → N.EDINP 19:22 → N.TELEN 19:53
PROVIDERS: ADMIT Internal Medicine; ATTEND Internal Medicine

== ENCOUNTER 2018-06-09 12:03 | Inpatient (IN) ==
[2018-06-09 12:40] LABS: Basophils % 0.6 % (0.0-0.8); Eosinophils % 0.9 % (0.00-10.9); Hematocrit 43.8 VOL% (35.7-47.0); Immature Granulocytes % 0.3 %; Immature Granulocytes Absolute 0.01 #; Lymphocytes # 1.2 10*3/uL (1.4-4.0); Lymphocytes % 36.8 % (21.3-54.2); Mean Corpuscular Hemoglobin 30 PG (27-34); Mean Corpuscular Volume 92.4 FL (87-102); Mean Platelet Volume 10.6 FL (9.6-12.0); Monocytes # 0.3 10*3/uL (0.11-0.8); Monocytes % 9.2 % (1.7-12.7); Neutrophils # 1.7 10*3/uL (1.4-7.4); Neutrophils % 52.2 % (38.7-73.9); Platelet Count 138 T/CUMM (130-400); Red Blood Count 4.74 MC/CUMM (3.8-5.5); Red Cell Distribution Width 14.5 % (9.3-17.3); White Blood Count 3.3 T/CUMM (4-12)
[2018-06-09 12:47] LABS: INR 1.2; Partial Thromboplastin Time 26.3 SECS (0-40)
[2018-06-09 13:03] LABS: Albumin 3.1 G/DL (3.4-5.0); Bilirubin,Total 0.9 MG/DL (0.2-1.0); Calcium 6.6 MG/DL (8.5-10.1); Osmolality,Calculated 282.5 MOS/KG (273-304); Potassium 3.3 MMOL/L (3.5-5.1); Total Protein 6.9 G/DL (6.4-8.3)
[2018-06-09] MEDS ORDERED: FUROSEMIDE 40 MG/4 ML VIAL IV STA (13:30)
[2018-06-09] MEDS ORDERED: ONDANSETRON 4 MG/2 ML VIAL IV PRN (14:29)
[2018-06-09] MEDS ORDERED: MAGNESIUM SULF RIDER 2 GM in PREMIX 1 EACH IV PRN ×2 (14:29→14:50)
[2018-06-09] MEDS ORDERED: MAGNESIUM SULF RIDER 4 GM in PREMIX 1 EACH IV PRN (14:50)
[2018-06-09] MEDS ORDERED: DEXTROSE 50% 25 GM/50 ML SYRINGE IV PRN (14:50)
[2018-06-09] MEDS ORDERED: GLUCAGON 1 MG VIAL IM PRN (14:50)
[2018-06-09] MEDS: FUROSEMIDE 40 MG/4 ML VIAL IV SCH (15:30)
[2018-06-09] MEDS: MAGNESIUM SULF RIDER 4 GM in PREMIX 1 EACH IV PRN (15:35)
[2018-06-09] MEDS: POTASSIUM CHLORIDE 20 MEQ TABLET PO PRN ×3 (15:35→21:25)
[2018-06-09] MEDS ORDERED: FUROSEMIDE 40 MG/4 ML VIAL IV SCH (16:00)
[2018-06-09] MEDS: INSULIN LISPRO 100 UNIT/ML SUBCUT SCH ×2 (16:15→21:31)
[2018-06-09] MEDS ORDERED: hydrALAZINE 20 MG/1 ML VIAL IV PRN (16:42)
[2018-06-09 18:13] LABS: Barbiturates Screen,Urine Negative (Negative); Benzodiazepines Screen,Urine Negative (Negative); Cannabinoid Screen,Urine Negative (Negative); Opiate Screen,Urine Negative (Negative); Phencyclidine Screen,Urine Negative (Negative)
[2018-06-09] MEDS ORDERED: CARVEDILOL 3.125 MG TABLET PO SCH (21:00)
[2018-06-09] MEDS ORDERED: DIGOXIN 0.25 MG TABLET PO SCH (21:00)
[2018-06-09] MEDS ORDERED: SACUBITRIL/VALSARTAN 49-51 MG TABLET PO SCH ×2 (21:00)
[2018-06-09] MEDS: CARVEDILOL 6.25 MG TABLET PO SCH (21:25)
[2018-06-10 04:59] LABS: Eosinophils % 1.3 % (0.00-10.9); Hematocrit 39.8 VOL% (35.7-47.0); Hemoglobin 12.9 GM/DL (12.0-16.0); Immature Granulocytes % 0.3 %; Immature Granulocytes Absolute 0.01 #; Lymphocytes # 1.3 10*3/uL (1.4-4.0); Lymphocytes % 42.7 % (21.3-54.2); Mean Corpuscular HGB Conc 32.4 GM/DL (32-36); Mean Corpuscular Hemoglobin 30 PG (27-34); Mean Corpuscular Volume 91.3 FL (87-102); Mean Platelet Volume 10.7 FL (9.6-12.0); Monocytes # 0.3 10*3/uL (0.11-0.8); Monocytes % 10.4 % (1.7-12.7); Neutrophils # 1.4 10*3/uL (1.4-7.4); Neutrophils % 44.3 % (38.7-73.9); Platelet Count 133 T/CUMM (130-400); Red Blood Count 4.36 MC/CUMM (3.8-5.5); Red Cell Distribution Width 14.4 % (9.3-17.3); White Blood Count 3.1 T/CUMM (4-12)
[2018-06-10 05:17] LABS: Calcium 6.6 MG/DL (8.5-10.1); Osmolality,Calculated 283.5 MOS/KG (273-304); Potassium 3.5 MMOL/L (3.5-5.1)
[2018-06-10 05:21] LABS: Hypochromasia 1+
[2018-06-10 05:22] LABS: Microcytosis Slight; Ovalocytes Slight; Platelet Estimate Decreased
[2018-06-10] MEDS: MAGNESIUM SULF RIDER 4 GM in PREMIX 1 EACH IV PRN (09:26)
[2018-06-10] MEDS: PANTOPRAZOLE 40 MG TABLET PO SCH (09:27)
[2018-06-10] MEDS: SACUBITRIL/VALSARTAN 49-51 MG TABLET PO SCH ×2 (09:27→21:40)
[2018-06-10] MEDS: ASPIRIN EC 81 MG TABLET PO SCH (09:27)
[2018-06-10] MEDS: FUROSEMIDE 40 MG/4 ML VIAL IV SCH ×2 (09:27→15:55)
[2018-06-10] MEDS: POTASSIUM CHLORIDE 20 MEQ TABLET PO SCH (09:27)
[2018-06-10] MEDS: INSULIN LISPRO 100 UNIT/ML SUBCUT SCH ×4 (09:28→21:40)
[2018-06-10] MEDS: CARVEDILOL 6.25 MG TABLET PO SCH ×3 (09:28→16:16)
[2018-06-10] MEDS: SPIRONOLACTONE 25 MG TABLET PO SCH (09:28)
[2018-06-11 04:35] LABS: Basophils % 0.8 % (0.0-0.8); Eosinophils # 0.1 10*3/uL (0.0-0.87); Eosinophils % 1.3 % (0.00-10.9); Hematocrit 39.5 VOL% (35.7-47.0); Hemoglobin 12.6 GM/DL (12.0-16.0); Lymphocytes # 1.5 10*3/uL (1.4-4.0); Lymphocytes % 38.6 % (21.3-54.2); Mean Corpuscular HGB Conc 31.9 GM/DL (32-36); Mean Corpuscular Hemoglobin 29 PG (27-34); Mean Corpuscular Volume 91.2 FL (87-102); Mean Platelet Volume 10.8 FL (9.6-12.0); Monocytes # 0.4 10*3/uL (0.11-0.8); Monocytes % 10.6 % (1.7-12.7); Neutrophils # 1.8 10*3/uL (1.4-7.4); Neutrophils % 48.7 % (38.7-73.9); Platelet Count 135 T/CUMM (130-400); Red Blood Count 4.33 MC/CUMM (3.8-5.5); Red Cell Distribution Width 14.2 % (9.3-17.3); White Blood Count 3.8 T/CUMM (4-12)
[2018-06-11 05:02] LABS: Calcium 6.7 MG/DL (8.5-10.1); Calcium 6.9 MG/DL (8.5-10.1); Osmolality,Calculated 280.7 MOS/KG (273-304); Osmolality,Calculated 282.5 MOS/KG (273-304); Potassium 3.5 MMOL/L (3.5-5.1); Potassium 3.6 MMOL/L (3.5-5.1)
[2018-06-11] MEDS: INSULIN LISPRO 100 UNIT/ML SUBCUT SCH ×2 (06:35→11:59)
[2018-06-11] MEDS: MAGNESIUM SULF RIDER 4 GM in PREMIX 1 EACH IV PRN (08:10)
[2018-06-11] MEDS: CARVEDILOL 6.25 MG TABLET PO SCH (08:11)
[2018-06-11] MEDS: FUROSEMIDE 40 MG/4 ML VIAL IV SCH (08:11)
[2018-06-11] MEDS: SACUBITRIL/VALSARTAN 49-51 MG TABLET PO SCH (08:12)
[2018-06-11] MEDS: PANTOPRAZOLE 40 MG TABLET PO SCH (08:12)
[2018-06-11] MEDS: POTASSIUM CHLORIDE 20 MEQ TABLET PO SCH (08:12)
[2018-06-11] MEDS: ASPIRIN EC 81 MG TABLET PO SCH (08:13)
[2018-06-11] MEDS: SPIRONOLACTONE 25 MG TABLET PO SCH (08:14)
[2018-06-11 12:11] VITALS: BP 110/68
== END 2018-06-11 14:55 | disposition home or self-care (01) | DRG 292 ==
LOC: N.ED 12:03 → N.EDINP 13:47 → N.TELEN 14:24
PROVIDERS: ADMIT Internal Medicine; ATTEND Internal Medicine

== ENCOUNTER 2018-11-11 13:33 | Observation (INO) ==
[2018-11-11] MEDS ORDERED: LACTULOSE 20 GM/30 ML UDCUP PO PRN (14:51)
[2018-11-11] MEDS ORDERED: GLUCAGON 1 MG VIAL IM PRN (14:51)
[2018-11-11] MEDS ORDERED: ACETAMINOPHEN 325 MG TABLET PO PRN (14:51)
[2018-11-11] MEDS ORDERED: ONDANSETRON 4 MG/2 ML VIAL IV PRN (14:51)
[2018-11-11] MEDS ORDERED: DEXTROSE 10% 250 ML BAG IV PRN (14:51)
[2018-11-11] MEDS ORDERED: ALBUTEROL 2.5 MG/3 ML NEB RESP TX PRN (14:57)
[2018-11-11] MEDS ORDERED: ALBUTEROL/IPRATROPIUM 3 ML NEB RESP TX PRN (15:11)
[2018-11-11] MEDS ORDERED: FUROSEMIDE 40 MG/4 ML VIAL IV SCH (16:00)
[2018-11-11 16:04] LABS: Bilirubin,Total 1.2 MG/DL (0.2-1.0); Calcium 8.5 MG/DL (8.5-10.1); Osmolality,Calculated 278.7 MOS/KG (273-304); Total Protein 7.5 G/DL (6.4-8.3)
[2018-11-11 16:20] LABS: Risk Ratio 3.4; Thyroid Stimulating Hormone 1.84 uIU/ml (0.358-3.74); VLDL CHOLESTEROL 13.4 MG/DL
[2018-11-11 17:54] LABS: Basophils % 0.5 % (0.0-0.8); Eosinophils # 0.1 10*3/uL (0.0-0.87); Eosinophils % 1.1 % (0.00-10.9); Hematocrit 44.2 VOL% (35.7-47.0); Hemoglobin 13.9 GM/DL (12.0-16.0); Immature Granulocytes % 0.5 %; Immature Granulocytes Absolute 0.02 #; Lymphocytes # 1.3 10*3/uL (1.4-4.0); Lymphocytes % 30.7 % (21.3-54.2); Mean Corpuscular HGB Conc 31.4 GM/DL (32-36); Mean Corpuscular Volume 92.7 FL (87-102); Mean Platelet Volume 10.4 FL (9.6-12.0); Monocytes % 9.4 % (1.7-12.7); Neutrophils % 57.8 % (38.7-73.9); Platelet Count 167 T/CUMM (130-400); Red Blood Count 4.77 MC/CUMM (3.8-5.5); Red Cell Distribution Width 14.6 % (9.3-17.3); White Blood Count 4.4 T/CUMM (4-12)
[2018-11-11] MEDS: INSULIN REGULAR 100 UNIT/ML SUBCUT SCH ×2 (19:33→21:09)
[2018-11-11] MEDS: FUROSEMIDE 40 MG/4 ML VIAL IV SCH (21:08)
[2018-11-11] MEDS: CARVEDILOL 12.5 MG TABLET PO SCH (21:09)
[2018-11-11] MEDS: ENOXAPARIN 40 MG/0.4 ML SYRINGE SUBCUT SCH (21:09)
[2018-11-11] MEDS: SACUBITRIL/VALSARTAN 49-51 MG TABLET PO SCH (21:09)
[2018-11-11] MEDS: DIGOXIN 0.25 MG TABLET PO SCH (21:10)
[2018-11-12 05:52] LABS: Basophils % 0.5 % (0.0-0.8); Eosinophils # 0.1 10*3/uL (0.0-0.87); Eosinophils % 1.5 % (0.00-10.9); Hematocrit 38.2 VOL% (35.7-47.0); Immature Granulocytes % 0.3 %; Immature Granulocytes Absolute 0.01 #; Lymphocytes # 1.4 10*3/uL (1.4-4.0); Mean Corpuscular HGB Conc 31.4 GM/DL (32-36); Mean Corpuscular Volume 91.6 FL (87-102); Monocytes % 8.7 % (1.7-12.7); Platelet Count 159 T/CUMM (130-400); Red Blood Count 4.17 MC/CUMM (3.8-5.5); Red Cell Distribution Width 14.4 % (9.3-17.3); White Blood Count 3.9 T/CUMM (4-12)
[2018-11-12 06:23] LABS: Osmolality,Calculated 283.5 MOS/KG (273-304)
[2018-11-12] MEDS: ASPIRIN EC 81 MG TABLET PO SCH (10:01)
[2018-11-12] MEDS: POTASSIUM CHLORIDE 20 MEQ TABLET PO SCH (10:01)
[2018-11-12] MEDS: DIGOXIN 0.25 MG TABLET PO SCH ×2 (10:01→21:33)
[2018-11-12] MEDS: CARVEDILOL 12.5 MG TABLET PO SCH ×2 (10:01→21:33)
[2018-11-12] MEDS: SPIRONOLACTONE 25 MG TABLET PO SCH (10:01)
[2018-11-12] MEDS: SACUBITRIL/VALSARTAN 49-51 MG TABLET PO SCH ×2 (10:01→21:33)
[2018-11-12] MEDS: PANTOPRAZOLE 40 MG TABLET PO SCH (10:01)
[2018-11-12] MEDS: FUROSEMIDE 40 MG/4 ML VIAL IV SCH ×2 (10:02→16:54)
[2018-11-12] MEDS: INSULIN REGULAR 100 UNIT/ML SUBCUT SCH ×4 (10:02→21:34)
[2018-11-12] MEDS: ENOXAPARIN 40 MG/0.4 ML SYRINGE SUBCUT SCH (16:59)
[2018-11-13 04:40] LABS: Basophils % 0.8 % (0.0-0.8); Eosinophils # 0.1 10*3/uL (0.0-0.87); Eosinophils % 1.6 % (0.00-10.9); Hematocrit 41.2 VOL% (35.7-47.0); Hemoglobin 12.9 GM/DL (12.0-16.0); Immature Granulocytes % 0.3 %; Immature Granulocytes Absolute 0.01 #; Lymphocytes # 1.4 10*3/uL (1.4-4.0); Lymphocytes % 36.3 % (21.3-54.2); Mean Corpuscular HGB Conc 31.3 GM/DL (32-36); Mean Platelet Volume 10.7 FL (9.6-12.0); Monocytes % 9.9 % (1.7-12.7); Neutrophils % 51.1 % (38.7-73.9); Platelet Count 159 T/CUMM (130-400); Red Blood Count 4.48 MC/CUMM (3.8-5.5); Red Cell Distribution Width 14.1 % (9.3-17.3); White Blood Count 3.8 T/CUMM (4-12)
[2018-11-13 05:05] LABS: Calcium 7.9 MG/DL (8.5-10.1); Osmolality,Calculated 280.7 MOS/KG (273-304)
[2018-11-13] MEDS ORDERED: NITROGLYCERIN SL 0.4 MG TABLET SL PRN (08:42)
[2018-11-13] MEDS: INSULIN REGULAR 100 UNIT/ML SUBCUT SCH ×2 (08:44→12:39)
[2018-11-13] MEDS: POTASSIUM CHLORIDE 20 MEQ TABLET PO SCH (08:47)
[2018-11-13] MEDS: PANTOPRAZOLE 40 MG TABLET PO SCH (08:47)
[2018-11-13] MEDS: ASPIRIN EC 81 MG TABLET PO SCH (08:47)
[2018-11-13] MEDS: SPIRONOLACTONE 25 MG TABLET PO SCH (08:47)
[2018-11-13] MEDS: DIGOXIN 0.25 MG TABLET PO SCH (08:47)
[2018-11-13] MEDS: SACUBITRIL/VALSARTAN 49-51 MG TABLET PO SCH (08:47)
[2018-11-13] MEDS: FUROSEMIDE 40 MG/4 ML VIAL IV SCH (08:47)
[2018-11-13] MEDS: CARVEDILOL 12.5 MG TABLET PO SCH (08:47)
[2018-11-13 12:23] VITALS: BP 107/68
== END 2018-11-13 13:40 | disposition home or self-care (01) ==
LOC: EDBD → EDUNIT# → N.ED 13:33 → N.EDINP 13:33 → N.TELEN 16:29 → N.TELES 17:14
PROVIDERS: ADMIT Emergency Medicine; ATTEND Emergency Medicine

== ENCOUNTER 2019-04-11 11:12 | Inpatient (IN) ==
[2019-04-11 11:51] LABS: Basophils % 0.4 % (0.0-0.8); Eosinophils % 0.6 % (0.00-10.9); Hematocrit 40.6 VOL% (35.7-47.0); Hemoglobin 13.3 GM/DL (12.0-16.0); Immature Granulocytes % 0.2 %; Immature Granulocytes Absolute 0.01 #; Lymphocytes # 1.5 10*3/uL (1.4-4.0); Mean Corpuscular HGB Conc 32.8 GM/DL (32-36); Mean Platelet Volume 9.9 FL (9.6-12.0); Monocytes % 8.3 % (1.7-12.7); Neutrophils % 61.5 % (38.7-73.9); Platelet Count 179 T/CUMM (130-400); Red Blood Count 4.46 MC/CUMM (3.8-5.5); Red Cell Distribution Width 14.6 % (9.3-17.3)
[2019-04-11 12:01] LABS: INR 1.1; PT Patient Result 12.4 SECS (9.6-12.2); Partial Thromboplastin Time 26.5 SECS (20.8-36.0)
[2019-04-11] MEDS ORDERED: diphenhydrAMINE CAP 25 MG CAPSULE PO PRN (12:01)
[2019-04-11] MEDS ORDERED: ONDANSETRON 4 MG/2 ML VIAL IV PRN (12:01)
[2019-04-11] MEDS ORDERED: PROMETHAZINE 25 MG TABLET PO PRN (12:01)
[2019-04-11] MEDS ORDERED: guaiFENesin/DM ER 600-30 MG TABLET PO PRN (12:01)
[2019-04-11] MEDS ORDERED: MAGNESIUM SULF RIDER 2 GM in PREMIX 1 EACH IV PRN (12:01)
[2019-04-11] MEDS ORDERED: MORPHINE 4 MG/1 ML VIAL IV PRN (12:01)
[2019-04-11] MEDS ORDERED: DOCUSATE SODIUM 100 MG CAPSULE PO PRN (12:01)
[2019-04-11] MEDS ORDERED: MAGNESIUM SULF RIDER 4 GM in PREMIX 1 EACH IV PRN (12:01)
[2019-04-11] MEDS ORDERED: AMIODARONE INJ 150 MG in DEXTROSE 5% 100 ML IV ONE (12:03)
[2019-04-11 12:19] LABS: Albumin 2.9 G/DL (3.4-5.0); Bilirubin,Total 0.8 MG/DL (0.2-1.0); Osmolality,Calculated 283.5 MOS/KG (273-304); Thyroid Stimulating Hormone 2.13 uIU/ml (0.358-3.74); Total Protein 6.9 G/DL (6.4-8.3)
[2019-04-11] MEDS ORDERED: ENOXAPARIN 40 MG/0.4 ML SYRINGE SUBCUT SCH (12:30)
[2019-04-11] MEDS ORDERED: AMIODARONE INJ 450 MG in DEXTROSE 5% 241 ML IV SCH ×2 (12:30→18:30)
[2019-04-11] MEDS: POTASSIUM CHLORIDE 20 MEQ TABLET PO PRN ×3 (14:24→18:31)
[2019-04-11] MEDS ORDERED: DIGOXIN 0.25 MG TABLET PO SCH (14:30)
[2019-04-11] MEDS ORDERED: DEXTROSE 10% 25 GM/250 ML BAG IV PRN (14:39)
[2019-04-11] MEDS ORDERED: GLUCAGON 1 MG VIAL IM PRN (14:39)
[2019-04-11] MEDS: carvediloL 12.5 MG TABLET PO SCH ×2 (14:58→20:21)
[2019-04-11] MEDS: INSULIN LISPRO 100 UNIT/ML SUBCUT SCH ×2 (17:26→20:21)
[2019-04-11 18:46] LABS: Apearance,Urine CLEAR (Clear); Bilirubin,Urine Negative (Negative); Blood, Urine Negative (Negative); Glucose,Urine (UA) Negative (Negative); Hyaline Casts,Urine 20 /LPF (0-3); Ketones,Urine Negative (Negative); Mucus,Urine Occasional /LPF (Occasional); Nitrite,Urine Negative (Negative); Protein,Urine 100 MG/DL; Squamous Epithelial Cell,Urine Occasional /HPF (0-10); Urine Color Yellow (Yellow)
[2019-04-11 19:53] LABS: Barbiturates Screen,Urine Negative (Negative); Benzodiazepines Screen,Urine Negative (Negative); Cannabinoid Screen,Urine Negative (Negative); Opiate Screen,Urine Negative (Negative); Phencyclidine Screen,Urine Negative (Negative)
[2019-04-11] MEDS: ENOXAPARIN 150 MG/ML SYRINGE SUBCUT SCH (20:20)
[2019-04-11] MEDS: INSULIN GLARGINE 100 UNIT/ML SUBCUT SCH (20:21)
[2019-04-11] MEDS: ZALEPLON 5 MG CAPSULE PO PRN (20:21)
[2019-04-11] MEDS: LACTULOSE 20 GM/30 ML UDCUP PO PRN (20:21)
[2019-04-11] MEDS ORDERED: SACUBITRIL/VALSARTAN 49-51 MG TABLET PO SCH (21:00)
[2019-04-12] MEDS: ZALEPLON 5 MG CAPSULE PO PRN (04:01)
[2019-04-12 05:19] LABS: Basophils % 0.4 % (0.0-0.8); Eosinophils % 0.6 % (0.00-10.9); Hematocrit 39.2 VOL% (35.7-47.0); Hemoglobin 12.4 GM/DL (12.0-16.0); Immature Granulocytes % 0.4 %; Immature Granulocytes Absolute 0.02 #; Lymphocytes # 1.5 10*3/uL (1.4-4.0); Lymphocytes % 27.8 % (21.3-54.2); Mean Corpuscular HGB Conc 31.6 GM/DL (32-36); Mean Corpuscular Volume 92.9 FL (87-102); Mean Platelet Volume 10.5 FL (9.6-12.0); Monocytes % 10.9 % (1.7-12.7); Neutrophils % 59.9 % (38.7-73.9); Platelet Count 160 T/CUMM (130-400); Red Blood Count 4.22 MC/CUMM (3.8-5.5); Red Cell Distribution Width 14.6 % (9.3-17.3); White Blood Count 5.4 T/CUMM (4-12)
[2019-04-12 05:40] LABS: Blood Urea Nitrogen 31 MG/DL (7-18); Calcium 7.7 MG/DL (8.5-10.1); Estimated Glom Filtration Rate 64 ML/MIN; Glucose 134 MG/DL (74-106)
[2019-04-12 05:43] LABS: Troponin I 0.106 NG/ML (0.00-0.045)
[2019-04-12] MEDS: AMIODARONE 200 MG TABLET PO SCH ×2 (08:15→20:25)
[2019-04-12] MEDS: POTASSIUM CHLORIDE 20 MEQ TABLET PO SCH (08:27)
[2019-04-12] MEDS: SPIRONOLACTONE 25 MG TABLET PO SCH (08:27)
[2019-04-12] MEDS: ASPIRIN EC 81 MG TABLET PO SCH (08:27)
[2019-04-12] MEDS: PANTOPRAZOLE 40 MG TABLET PO SCH (08:27)
[2019-04-12] MEDS: carvediloL 12.5 MG TABLET PO SCH ×2 (08:27→20:25)
[2019-04-12] MEDS: ENOXAPARIN 150 MG/ML SYRINGE SUBCUT SCH (08:27)
[2019-04-12] MEDS: INSULIN LISPRO 100 UNIT/ML SUBCUT SCH ×4 (08:27→22:35)
[2019-04-12] MEDS: INSULIN GLARGINE 100 UNIT/ML SUBCUT SCH (20:25)
[2019-04-13] MEDS: LACTULOSE 20 GM/30 ML UDCUP PO PRN (03:37)
[2019-04-13 05:16] LABS: Calcium 7.9 MG/DL (8.5-10.1)
[2019-04-13] MEDS ORDERED: MAGNESIUM SULF RIDER 2 GM in PREMIX 1 EACH IV ONE (08:44)
[2019-04-13] MEDS ORDERED: ENOXAPARIN 40 MG/0.4 ML SYRINGE SUBCUT SCH (09:00)
[2019-04-13] MEDS: INSULIN LISPRO 100 UNIT/ML SUBCUT SCH (10:01)
[2019-04-13] MEDS: ASPIRIN EC 81 MG TABLET PO SCH (10:02)
[2019-04-13] MEDS: POTASSIUM CHLORIDE 20 MEQ TABLET PO SCH (10:02)
[2019-04-13] MEDS: SPIRONOLACTONE 25 MG TABLET PO SCH (10:03)
[2019-04-13] MEDS: carvediloL 12.5 MG TABLET PO SCH (10:03)
[2019-04-13] MEDS: PANTOPRAZOLE 40 MG TABLET PO SCH (10:03)
[2019-04-13] MEDS: AMIODARONE 200 MG TABLET PO SCH (10:08)
[2019-04-13 12:57] VITALS: BP 125/77
== END 2019-04-13 14:46 | disposition home or self-care (01) | DRG 309 ==
LOC: N.ED 11:12 → N.EDINP 12:01 → N.ICU 15:08 → N.TELEN 04-12 09:53
PROVIDERS: ADMIT Internal Medicine Cardiovascular Disease; ATTEND Internal Medicine Cardiovascular Disease

== ENCOUNTER 2019-12-10 11:05 | Observation (INO) ==
[2019-12-10] MEDS ORDERED: FUROSEMIDE 100 MG/10 ML VIAL IV STA (12:09)
[2019-12-10 12:16] LABS: Basophils % 0.9 % (0.0-0.8); Eosinophils % 0.6 % (0.00-10.9); Hematocrit 43.4 VOL% (35.7-47.0); Hemoglobin 14.1 GM/DL (12.0-16.0); Immature Granulocytes % 0.3 %; Immature Granulocytes Absolute 0.01 #; Lymphocytes # 1.3 10*3/uL (1.4-4.0); Lymphocytes % 37.7 % (21.3-54.2); Mean Corpuscular HGB Conc 32.5 GM/DL (32-36); Mean Corpuscular Volume 90.6 FL (87-102); Mean Platelet Volume 10.6 FL (9.6-12.0); Monocytes % 10.6 % (1.7-12.7); Neutrophils % 49.9 % (38.7-73.9); Platelet Count 172 T/CUMM (130-400); Red Blood Count 4.79 MC/CUMM (3.8-5.5); Red Cell Distribution Width 15.8 % (9.3-17.3); White Blood Count 3.5 T/CUMM (4-12)
[2019-12-10 12:26] LABS: Bilirubin,Total 2.3 MG/DL (0.2-1.0); Calcium 8.7 MG/DL (8.5-10.1); Osmolality,Calculated 281.7 MOS/KG (273-304)
[2019-12-10 12:27] LABS: INR 1.3; PT Patient Result 13.5 SECS (9.8-11.9)
[2019-12-10] MEDS ORDERED: GLUCAGON 1 MG VIAL IM PRN (13:28)
[2019-12-10] MEDS ORDERED: MAGNESIUM SULF RIDER 2 GM in PREMIX 1 EACH IV PRN (13:28)
[2019-12-10] MEDS ORDERED: LACTULOSE 20 GM/30 ML UDCUP PO PRN (13:28)
[2019-12-10] MEDS ORDERED: DEXTROSE 50% 25 GM/50 ML VIAL IV PRN ×2 (13:28→13:38)
[2019-12-10] MEDS ORDERED: DOCUSATE SODIUM 100 MG CAPSULE PO PRN (13:28)
[2019-12-10] MEDS ORDERED: ONDANSETRON 4 MG/2 ML VIAL IV PRN (13:28)
[2019-12-10] MEDS ORDERED: MAGNESIUM SULF RIDER 4 GM in PREMIX 1 EACH IV PRN (13:28)
[2019-12-10] MEDS ORDERED: POTASSIUM CHLORIDE RIDER 10 MEQ in PREMIX 1 EACH IV PRN (13:38)
[2019-12-10] MEDS: ENOXAPARIN 40 MG/0.4 ML SYRINGE SUBCUT SCH (16:03)
[2019-12-10] MEDS: FUROSEMIDE 40 MG/4 ML VIAL IV SCH (16:04)
[2019-12-10] MEDS: INSULIN LISPRO 100 UNIT/ML SUBCUT SCH (17:15)
[2019-12-10] MEDS: SACUBITRIL/VALSARTAN 49-51 MG TABLET PO SCH (20:40)
[2019-12-10] MEDS: carvediloL 25 MG TABLET PO SCH (20:40)
[2019-12-11 06:06] LABS: Basophils % 0.6 % (0.0-0.8); Eosinophils % 1.3 % (0.00-10.9); Hematocrit 43.5 VOL% (35.7-47.0); Hemoglobin 13.9 GM/DL (12.0-16.0); Immature Granulocytes % 0.3 %; Immature Granulocytes Absolute 0.01 #; Lymphocytes # 1.2 10*3/uL (1.4-4.0); Lymphocytes % 37.4 % (21.3-54.2); Mean Corpuscular Volume 91.2 FL (87-102); Mean Platelet Volume 10.8 FL (9.6-12.0); Monocytes % 9.7 % (1.7-12.7); Neutrophils % 50.7 % (38.7-73.9); Platelet Count 153 T/CUMM (130-400); Red Blood Count 4.77 MC/CUMM (3.8-5.5); Red Cell Distribution Width 15.8 % (9.3-17.3); White Blood Count 3.2 T/CUMM (4-12)
[2019-12-11 06:35] LABS: Albumin 2.5 G/DL (3.4-5.0); Bilirubin,Total 2.2 MG/DL (0.2-1.0); Calcium 8.3 MG/DL (8.5-10.1); Osmolality,Calculated 282.1 MOS/KG (273-304); Risk Ratio 3.81; Thyroid Stimulating Hormone 2.39 uIU/ml (0.358-3.74); Total Protein 6.7 G/DL (6.4-8.3); VLDL CHOLESTEROL 12.2 MG/DL
[2019-12-11] MEDS ORDERED: FUROSEMIDE 40 MG/4 ML VIAL IV SCH (09:06)
[2019-12-11] MEDS: SACUBITRIL/VALSARTAN 49-51 MG TABLET PO SCH ×2 (10:26→22:47)
[2019-12-11] MEDS: ASPIRIN EC 81 MG TABLET PO SCH (10:27)
[2019-12-11] MEDS: DIGOXIN 0.25 MG TABLET PO SCH (10:27)
[2019-12-11] MEDS: INSULIN LISPRO 100 UNIT/ML SUBCUT SCH ×2 (10:28→16:27)
[2019-12-11] MEDS: carvediloL 25 MG TABLET PO SCH ×2 (10:28→22:03)
[2019-12-11] MEDS: PANTOPRAZOLE 40 MG TABLET PO SCH (10:28)
[2019-12-11] MEDS: SPIRONOLACTONE 25 MG TABLET PO SCH (10:28)
[2019-12-11] MEDS: FUROSEMIDE 40 MG/4 ML VIAL IV SCH ×2 (10:29→10:30)
[2019-12-11] MEDS ORDERED: MAGNESIUM SULF RIDER 4 GM in PREMIX 1 EACH IV PRN (10:30)
[2019-12-11] MEDS ORDERED: MAGNESIUM SULF RIDER 2 GM in PREMIX 1 EACH IV PRN (10:30)
[2019-12-11 13:11] LABS: Barbiturates Screen,Urine Negative (Negative); Benzodiazepines Screen,Urine Negative (Negative); Cannabinoid Screen,Urine Negative (Negative); Opiate Screen,Urine Negative (Negative); Phencyclidine Screen,Urine Negative (Negative)
[2019-12-11] MEDS: ENOXAPARIN 40 MG/0.4 ML SYRINGE SUBCUT SCH (13:51)
[2019-12-12] MEDS ORDERED: ACETAMINOPHEN 500 MG TABLET PO PRN (01:08)
[2019-12-12 06:22] LABS: Basophils % 0.6 % (0.0-0.8); Eosinophils % 1.1 % (0.00-10.9); Hematocrit 41.7 VOL% (35.7-47.0); Hemoglobin 13.7 GM/DL (12.0-16.0); Immature Granulocytes % 0.3 %; Immature Granulocytes Absolute 0.01 #; Lymphocytes # 1.2 10*3/uL (1.4-4.0); Lymphocytes % 34.2 % (21.3-54.2); Mean Corpuscular HGB Conc 32.9 GM/DL (32-36); Mean Corpuscular Volume 90.5 FL (87-102); Monocytes % 10.1 % (1.7-12.7); Neutrophils % 53.7 % (38.7-73.9); Platelet Count 163 T/CUMM (130-400); Red Blood Count 4.61 MC/CUMM (3.8-5.5); Red Cell Distribution Width 15.9 % (9.3-17.3); White Blood Count 3.5 T/CUMM (4-12)
[2019-12-12 06:41] LABS: Albumin 2.7 G/DL (3.4-5.0); Bilirubin,Total 1.6 MG/DL (0.2-1.0); Calcium 8.5 MG/DL (8.5-10.1); Osmolality,Calculated 279.2 MOS/KG (273-304); Total Protein 6.9 G/DL (6.4-8.3)
[2019-12-12 08:00] VITALS: BP 116/63
[2019-12-12] MEDS: INSULIN LISPRO 100 UNIT/ML SUBCUT SCH (09:20)
[2019-12-12] MEDS: PANTOPRAZOLE 40 MG TABLET PO SCH (09:21)
[2019-12-12] MEDS: SACUBITRIL/VALSARTAN 49-51 MG TABLET PO SCH (09:21)
[2019-12-12] MEDS: SPIRONOLACTONE 25 MG TABLET PO SCH (09:22)
[2019-12-12] MEDS: carvediloL 25 MG TABLET PO SCH (09:22)
[2019-12-12] MEDS: ASPIRIN EC 81 MG TABLET PO SCH (09:22)
[2019-12-12] MEDS: DIGOXIN 0.25 MG TABLET PO SCH (09:22)
[2019-12-12] MEDS: FUROSEMIDE 40 MG/4 ML VIAL IV SCH (09:22)
== END 2019-12-12 13:38 | disposition home or self-care (01) ==
LOC: N.EDINP 11:05 → N.ED 11:05 → N.EDINP 14:52 → N.TELEN 15:02
PROVIDERS: ADMIT Internal Medicine; ATTEND Internal Medicine

== ENCOUNTER 2019-12-19 12:28 | Observation (INO) ==
[2019-12-19] MEDS ORDERED: FUROSEMIDE 40 MG/4 ML VIAL IV STA (13:51)
[2019-12-19 14:06] LABS: Basophils % 0.3 % (0.0-0.8); Eosinophils % 0.6 % (0.00-10.9); Hemoglobin 14.2 GM/DL (12.0-16.0); Lymphocytes # 1.4 10*3/uL (1.4-4.0); Lymphocytes % 40.1 % (21.3-54.2); Mean Corpuscular HGB Conc 32.3 GM/DL (32-36); Mean Corpuscular Volume 90.2 FL (87-102); Mean Platelet Volume 11.4 FL (9.6-12.0); Monocytes % 8.1 % (1.7-12.7); Neutrophils % 50.9 % (38.7-73.9); Platelet Count 154 T/CUMM (130-400); Red Blood Count 4.88 MC/CUMM (3.8-5.5); Red Cell Distribution Width 16.1 % (9.3-17.3); White Blood Count 3.4 T/CUMM (4-12)
[2019-12-19 14:20] LABS: Alanine Aminotransferase 23 U/L (13-56); Albumin 3.1 G/DL (3.4-5.0); Alkaline Phosphatase 129 U/L (45-117); Amylase 38 U/L (25-115); Aspartate Amino Transferase 24 U/L (0-37); Blood Urea Nitrogen 25 MG/DL (7-18); Calcium 8.7 MG/DL (8.5-10.1); Estimated Glom Filtration Rate 102 ML/MIN; Glucose 121 MG/DL (74-106); Osmolality,Calculated 277.8 MOS/KG (273-304); Total Protein 7.5 G/DL (6.4-8.3); Troponin I < 0.015 NG/ML (0.00-0.045)
[2019-12-19 14:21] LABS: INR 1.2; PT Patient Result 12.6 SECS (9.8-11.9); Partial Thromboplastin Time 28.9 SECS (23.9-33.8)
[2019-12-19 16:18] LABS: Apearance,Urine CLEAR (Clear); Bacteria,Urine Occasional /HPF (Few); Bilirubin,Urine Negative (Negative); Blood, Urine Small mg/dL (Negative); Glucose,Urine (UA) Negative (Negative); Ketones,Urine Negative (Negative); Mucus,Urine Occasional /LPF (Occasional); Nitrite,Urine Negative (Negative); Protein,Urine 30 MG/DL; RBC,Urine <1 /HPF (0-4); Squamous Epithelial Cell,Urine Occasional /HPF (0-10); Urine Color Yellow (Yellow); Urine Specific Gravity 1.006 (1.001-1.035); Urine Urobilinogen < 2.0 EU/DL (0.2-1.0)
[2019-12-19] MEDS ORDERED: DEXTROSE 50% 25 GM/50 ML VIAL IV PRN ×2 (16:34)
[2019-12-19] MEDS ORDERED: ACETAMINOPHEN 325 MG TABLET PO PRN (16:34)
[2019-12-19] MEDS ORDERED: MAGNESIUM SULF RIDER 4 GM in PREMIX 1 EACH IV PRN (16:34)
[2019-12-19] MEDS ORDERED: GLUCAGON 1 MG VIAL IM PRN (16:34)
[2019-12-19] MEDS ORDERED: ONDANSETRON 4 MG/2 ML VIAL IV PRN (16:34)
[2019-12-19] MEDS: ENOXAPARIN 40 MG/0.4 ML SYRINGE SUBCUT SCH (17:10)
[2019-12-19] MEDS: POTASSIUM CHLORIDE 20 MEQ TABLET PO SCH (20:51)
[2019-12-19] MEDS: SACUBITRIL/VALSARTAN 49-51 MG TABLET PO SCH (20:52)
[2019-12-19] MEDS: INSULIN REGULAR 100 UNIT/ML SUBCUT SCH (20:52)
[2019-12-19] MEDS ORDERED: carvediloL 25 MG TABLET PO SCH (21:00)
[2019-12-20 06:06] LABS: Basophils % 0.9 % (0.0-0.8); Eosinophils % 0.9 % (0.00-10.9); Hematocrit 41.5 VOL% (35.7-47.0); Hemoglobin 13.2 GM/DL (12.0-16.0); Immature Granulocytes % 0.3 %; Immature Granulocytes Absolute 0.01 #; Lymphocytes # 1.4 10*3/uL (1.4-4.0); Lymphocytes % 38.7 % (21.3-54.2); Mean Corpuscular HGB Conc 31.8 GM/DL (32-36); Mean Corpuscular Volume 90.4 FL (87-102); Mean Platelet Volume 10.5 FL (9.6-12.0); Monocytes % 9.7 % (1.7-12.7); Neutrophils % 49.5 % (38.7-73.9); Platelet Count 133 T/CUMM (130-400); Red Blood Count 4.59 MC/CUMM (3.8-5.5); Red Cell Distribution Width 16.3 % (9.3-17.3); White Blood Count 3.5 T/CUMM (4-12)
[2019-12-20 06:26] LABS: Albumin 2.7 G/DL (3.4-5.0); Bilirubin,Total 2.4 MG/DL (0.2-1.0); Calcium 8.4 MG/DL (8.5-10.1); Total Protein 6.7 G/DL (6.4-8.3)
[2019-12-20 06:39] LABS: Platelet Estimate Normal
[2019-12-20] MEDS ORDERED: FUROSEMIDE 40 MG/4 ML VIAL IV SCH (08:00)
[2019-12-20] MEDS ORDERED: amLODIPine 5 MG TABLET PO SCH (09:00)
[2019-12-20] MEDS: carvediloL 25 MG TABLET PO SCH ×2 (09:23→20:20)
[2019-12-20] MEDS: ASPIRIN EC 81 MG TABLET PO SCH (09:23)
[2019-12-20] MEDS: DIGOXIN 0.25 MG TABLET PO SCH (09:23)
[2019-12-20] MEDS: POTASSIUM CHLORIDE 20 MEQ TABLET PO SCH ×2 (09:24→20:20)
[2019-12-20] MEDS: SACUBITRIL/VALSARTAN 49-51 MG TABLET PO SCH ×2 (09:24→20:20)
[2019-12-20] MEDS: SPIRONOLACTONE 25 MG TABLET PO SCH (09:24)
[2019-12-20] MEDS: FUROSEMIDE 40 MG/4 ML VIAL IV SCH ×2 (09:24→16:00)
[2019-12-20] MEDS: INSULIN REGULAR 100 UNIT/ML SUBCUT SCH ×4 (09:24→20:27)
[2019-12-20] MEDS: MAGNESIUM SULF RIDER 2 GM in PREMIX 1 EACH IV PRN (09:25)
[2019-12-20 14:09] LABS: Barbiturates Screen,Urine Negative (Negative); Benzodiazepines Screen,Urine Negative (Negative); Cannabinoid Screen,Urine Negative (Negative); Opiate Screen,Urine Negative (Negative); Phencyclidine Screen,Urine Negative (Negative)
[2019-12-20] MEDS: metOLazone 5 MG TABLET PO SCH (15:25)
[2019-12-20] MEDS: ENOXAPARIN 40 MG/0.4 ML SYRINGE SUBCUT SCH (16:12)
[2019-12-21 04:57] LABS: Basophils % 0.8 % (0.0-0.8); Eosinophils # 0.1 10*3/uL (0.0-0.87); Eosinophils % 1.7 % (0.00-10.9); Hematocrit 42.7 VOL% (35.7-47.0); Hemoglobin 13.8 GM/DL (12.0-16.0); Immature Granulocytes % 0.3 %; Immature Granulocytes Absolute 0.01 #; Lymphocytes # 1.3 10*3/uL (1.4-4.0); Lymphocytes % 36.5 % (21.3-54.2); Mean Corpuscular HGB Conc 32.3 GM/DL (32-36); Mean Corpuscular Volume 90.7 FL (87-102); Monocytes % 10.5 % (1.7-12.7); Neutrophils % 50.2 % (38.7-73.9); Platelet Count 151 T/CUMM (130-400); Red Blood Count 4.71 MC/CUMM (3.8-5.5); Red Cell Distribution Width 15.9 % (9.3-17.3); White Blood Count 3.6 T/CUMM (4-12)
[2019-12-21 05:40] LABS: Calcium 8.4 MG/DL (8.5-10.1)
[2019-12-21] MEDS: INSULIN REGULAR 100 UNIT/ML SUBCUT SCH ×2 (08:42→13:18)
[2019-12-21] MEDS: SPIRONOLACTONE 25 MG TABLET PO SCH (08:43)
[2019-12-21] MEDS: ASPIRIN EC 81 MG TABLET PO SCH (08:43)
[2019-12-21] MEDS: SACUBITRIL/VALSARTAN 49-51 MG TABLET PO SCH (08:44)
[2019-12-21] MEDS: carvediloL 25 MG TABLET PO SCH (08:44)
[2019-12-21] MEDS: POTASSIUM CHLORIDE 20 MEQ TABLET PO SCH (08:44)
[2019-12-21] MEDS: DIGOXIN 0.25 MG TABLET PO SCH (08:44)
[2019-12-21] MEDS: FUROSEMIDE 40 MG/4 ML VIAL IV SCH (08:48)
[2019-12-21] MEDS: MAGNESIUM SULF RIDER 2 GM in PREMIX 1 EACH IV PRN (08:57)
[2019-12-21 11:47] VITALS: BP 97/52
[2019-12-21] MEDS: metOLazone 5 MG TABLET PO SCH (14:37)
== END 2019-12-21 14:44 | disposition home or self-care (01) ==
LOC: N.ED 12:28 → N.EDINP 12:28 → N.TELEN 18:40
PROVIDERS: ADMIT Internal Medicine; ATTEND Internal Medicine

== ENCOUNTER 2020-08-11 14:41 | Observation (INO) ==
[2020-08-11] MEDS ORDERED: FUROSEMIDE 40 MG/4 ML VIAL IV STA (15:24)
[2020-08-11] MEDS ORDERED: ALBUTEROL 2.5 MG/3 ML NEB RESP TX STA (15:25)
[2020-08-11 15:37] LABS: Basophils % 0.8 % (0.0-0.8); Eosinophils # 0.1 10*3/uL (0.0-0.87); Eosinophils % 1.8 % (0.00-10.9); Hematocrit 46.5 VOL% (35.7-47.0); Hemoglobin 15.2 GM/DL (12.0-16.0); Immature Granulocytes % 0.3 %; Immature Granulocytes Absolute 0.01 #; Lymphocytes # 1.4 10*3/uL (1.4-4.0); Lymphocytes % 37.4 % (21.3-54.2); Mean Corpuscular HGB Conc 32.7 GM/DL (32-36); Mean Corpuscular Volume 88.4 FL (87-102); Mean Platelet Volume 10.4 FL (9.6-12.0); Monocytes % 8.9 % (1.7-12.7); Neutrophils % 50.8 % (38.7-73.9); Platelet Count 193 T/CUMM (130-400); Red Blood Count 5.26 MC/CUMM (3.8-5.5); Red Cell Distribution Width 14.3 % (9.3-17.3); White Blood Count 3.8 T/CUMM (4-12)
[2020-08-11 15:58] LABS: INR 1.1; PT Patient Result 11.8 SECS (9.8-11.9); Partial Thromboplastin Time 28.5 SECS (23.9-33.8)
[2020-08-11 15:59] LABS: Albumin 3.1 G/DL (3.4-5.0); Bilirubin,Total 0.7 MG/DL (0.2-1.0); Calcium 8.3 MG/DL (8.5-10.1); Osmolality,Calculated 278.2 MOS/KG (273-304); Potassium 3.5 MMOL/L (3.5-5.1); Total Protein 8.4 G/DL (6.4-8.2)
[2020-08-11] MEDS ORDERED: ONDANSETRON 4 MG/2 ML VIAL IV PRN (16:46)
[2020-08-11] MEDS ORDERED: GLUCAGON 1 MG VIAL IM PRN (16:46)
[2020-08-11] MEDS ORDERED: DEXTROSE 50% 25 GM/50 ML VIAL IV PRN (16:46)
[2020-08-11] MEDS ORDERED: hydrALAZINE 20 MG/1 ML VIAL IV PRN (16:46)
[2020-08-11 17:15] LABS: Risk Ratio 4.63; Thyroid Stimulating Hormone 0.95 uIU/ml (0.358-3.74); VLDL CHOLESTEROL 23.6 MG/DL
[2020-08-11] MEDS: ENOXAPARIN 40 MG/0.4 ML SYRINGE SUBCUT SCH (18:01)
[2020-08-11] MEDS: ALBUTEROL 2.5 MG/3 ML NEB RESP TX SCH (19:40)
[2020-08-11] MEDS: SACUBITRIL/VALSARTAN 49-51 MG TABLET PO SCH (21:11)
[2020-08-11] MEDS: carvediloL 12.5 MG TABLET PO SCH (21:11)
[2020-08-11] MEDS: ACETAMINOPHEN 325 MG TABLET PO PRN (21:12)
[2020-08-11] MEDS: FUROSEMIDE 40 MG/4 ML VIAL IV SCH (21:17)
[2020-08-11] MEDS: INSULIN LISPRO 100 UNIT/ML SUBCUT SCH (22:51)
[2020-08-12] MEDS: ALBUTEROL 2.5 MG/3 ML NEB RESP TX SCH ×4 (01:22→19:29)
[2020-08-12 05:52] LABS: Basophils % 0.8 % (0.0-0.8); Eosinophils # 0.1 10*3/uL (0.0-0.87); Eosinophils % 2.8 % (0.00-10.9); Hematocrit 42.9 VOL% (35.7-47.0); Hemoglobin 13.7 GM/DL (12.0-16.0); Immature Granulocytes % 0.3 %; Immature Granulocytes Absolute 0.01 #; Lymphocytes # 1.7 10*3/uL (1.4-4.0); Lymphocytes % 43.5 % (21.3-54.2); Mean Corpuscular HGB Conc 31.9 GM/DL (32-36); Mean Corpuscular Volume 90.5 FL (87-102); Mean Platelet Volume 10.9 FL (9.6-12.0); Monocytes % 8.8 % (1.7-12.7); Neutrophils % 43.8 % (38.7-73.9); Platelet Count 180 T/CUMM (130-400); Red Blood Count 4.74 MC/CUMM (3.8-5.5); Red Cell Distribution Width 14.2 % (9.3-17.3); White Blood Count 3.9 T/CUMM (4-12)
[2020-08-12 06:08] LABS: Calcium 8.2 MG/DL (8.5-10.1); Osmolality,Calculated 286.8 MOS/KG (273-304); Potassium 3.4 MMOL/L (3.5-5.1)
[2020-08-12] MEDS: ACETAMINOPHEN 325 MG TABLET PO PRN (06:32)
[2020-08-12 06:45] LABS: Barbiturates Screen,Urine Negative (Negative); Benzodiazepines Screen,Urine Negative (Negative); Cannabinoid Screen,Urine Negative (Negative); Opiate Screen,Urine Negative (Negative); Phencyclidine Screen,Urine Negative (Negative)
[2020-08-12] MEDS: SACUBITRIL/VALSARTAN 49-51 MG TABLET PO SCH ×2 (08:39→20:37)
[2020-08-12] MEDS: carvediloL 12.5 MG TABLET PO SCH ×2 (08:39→20:37)
[2020-08-12] MEDS: SPIRONOLACTONE 25 MG TABLET PO SCH (08:39)
[2020-08-12] MEDS: ASPIRIN EC 81 MG TABLET PO SCH (08:39)
[2020-08-12] MEDS: FUROSEMIDE 40 MG/4 ML VIAL IV SCH ×2 (08:40→17:00)
[2020-08-12] MEDS: INSULIN LISPRO 100 UNIT/ML SUBCUT SCH ×4 (09:06→20:36)
[2020-08-12] MEDS: BENZONATATE 100 MG CAPSULE PO SCH ×2 (11:02→20:36)
[2020-08-12] MEDS: FLUTICASONE 50 MCG NASAL SPRAY 16 GM BOTTLE BOTH NARES SCH ×2 (13:06→20:36)
[2020-08-12] MEDS: ENOXAPARIN 40 MG/0.4 ML SYRINGE SUBCUT SCH (17:00)
[2020-08-13] MEDS: ALBUTEROL 2.5 MG/3 ML NEB RESP TX SCH ×3 (02:53→13:47)
[2020-08-13] MEDS: ACETAMINOPHEN 325 MG TABLET PO PRN (05:32)
[2020-08-13 05:37] LABS: Basophils % 0.7 % (0.0-0.8); Eosinophils # 0.1 10*3/uL (0.0-0.87); Eosinophils % 1.6 % (0.00-10.9); Hematocrit 44.1 VOL% (35.7-47.0); Hemoglobin 13.9 GM/DL (12.0-16.0); Immature Granulocytes % 0.2 %; Immature Granulocytes Absolute 0.01 #; Lymphocytes # 1.7 10*3/uL (1.4-4.0); Mean Corpuscular HGB Conc 31.5 GM/DL (32-36); Mean Corpuscular Volume 89.8 FL (87-102); Mean Platelet Volume 10.5 FL (9.6-12.0); Monocytes % 8.6 % (1.7-12.7); Neutrophils % 49.9 % (38.7-73.9); Platelet Count 171 T/CUMM (130-400); Red Blood Count 4.91 MC/CUMM (3.8-5.5); Red Cell Distribution Width 14.1 % (9.3-17.3); White Blood Count 4.3 T/CUMM (4-12)
[2020-08-13 05:56] LABS: Calcium 8.4 MG/DL (8.5-10.1); Osmolality,Calculated 280.1 MOS/KG (273-304); Potassium 3.5 MMOL/L (3.5-5.1)
[2020-08-13 05:58] LABS: Eosinophils 1 % (0-10); Lymphocytes 45 % (20-55); Platelet Estimate Adequate; Segmented Neutrophils 45 % (50-85); Total Cells Counted 100
[2020-08-13 05:59] LABS: Hypochromasia Slight; Microcytosis Slight
[2020-08-13] MEDS: INSULIN LISPRO 100 UNIT/ML SUBCUT SCH ×3 (08:00→16:34)
[2020-08-13] MEDS: BENZONATATE 100 MG CAPSULE PO SCH (08:34)
[2020-08-13] MEDS: SACUBITRIL/VALSARTAN 49-51 MG TABLET PO SCH (08:34)
[2020-08-13] MEDS: ASPIRIN EC 81 MG TABLET PO SCH (08:34)
[2020-08-13] MEDS: FUROSEMIDE 40 MG/4 ML VIAL IV SCH ×2 (08:34→16:33)
[2020-08-13] MEDS: FLUTICASONE 50 MCG NASAL SPRAY 16 GM BOTTLE BOTH NARES SCH (08:35)
[2020-08-13] MEDS: SPIRONOLACTONE 25 MG TABLET PO SCH (08:35)
[2020-08-13] MEDS: carvediloL 12.5 MG TABLET PO SCH (08:35)
[2020-08-13] MEDS ORDERED: DIGOXIN 0.25 MG TABLET PO SCH (09:00)
[2020-08-13 16:01] VITALS: BP 114/74
[2020-08-13] MEDS: ENOXAPARIN 40 MG/0.4 ML SYRINGE SUBCUT SCH (16:32)
== END 2020-08-13 17:21 | disposition home or self-care (01) ==
LOC: N.EDINP 14:41 → N.ED 14:41 → SUATTDRO 16:27 → N.TELEN 16:43
PROVIDERS: ADMIT Internal Medicine; ATTEND Internal Medicine

== ENCOUNTER 2020-12-11 00:20 | Observation (INO) ==
[2020-12-11] MEDS ORDERED: NITROGLYCERIN 2% OINT 1 INCH/GM PACK TOP STA (00:51)
[2020-12-11] MEDS ORDERED: ONDANSETRON 4 MG/2 ML VIAL IV STA (00:51)
[2020-12-11] MEDS ORDERED: ASPIRIN 325 MG TABLET PO STA (00:51)
[2020-12-11 01:23] LABS: Basophils % 0.5 % (0.0-0.8); Eosinophils % 0.7 % (0.00-10.9); Hemoglobin 13.5 GM/DL (12.0-16.0); Immature Granulocytes % 1.3 %; Immature Granulocytes Absolute 0.07 #; Lymphocytes # 1.3 10*3/uL (1.4-4.0); Lymphocytes % 24.2 % (21.3-54.2); Mean Corpuscular HGB Conc 31.4 GM/DL (32-36); Mean Corpuscular Volume 90.7 FL (87-102); Mean Platelet Volume 10.8 FL (9.6-12.0); Monocytes % 9.3 % (1.7-12.7); Platelet Count 189 T/CUMM (130-400); Red Blood Count 4.74 MC/CUMM (3.8-5.5); Red Cell Distribution Width 12.6 % (9.3-17.3); White Blood Count 5.5 T/CUMM (4-12)
[2020-12-11 01:40] LABS: Albumin 3.5 G/DL (3.4-5.0); Bilirubin,Total 0.7 MG/DL (0.20-1.00); Calcium 9.4 MG/DL (8.5-10.1); Osmolality,Calculated 280.1 MOS/KG (273-304); Potassium 4.4 MMOL/L (3.5-5.1); Total Protein 7.5 G/DL (6.4-8.2)
[2020-12-11] MEDS ORDERED: MAGNESIUM SULF RIDER 2 GM/50 ML PREMIX IV STA (01:43)
[2020-12-11 01:47] LABS: INR 1.1; PT Patient Result 11.9 SECS (10.5-12.0)
[2020-12-11 03:53] LABS: Platelet Estimate Adequate
[2020-12-11 03:54] LABS: Hypochromasia Slight; Microcytosis Slight
[2020-12-11] MEDS ORDERED: ONDANSETRON 4 MG/2 ML VIAL IV PRN (06:03)
[2020-12-11] MEDS ORDERED: MAGNESIUM SULF RIDER 2 GM/50 ML PREMIX IV PRN (06:03)
[2020-12-11] MEDS ORDERED: ALBUTEROL 2.5 MG/3 ML NEB RESP TX PRN (06:03)
[2020-12-11] MEDS ORDERED: MORPHINE 2 MG/1 ML SYRINGE IV PRN (06:03)
[2020-12-11] MEDS ORDERED: GLUCAGON 1 MG VIAL IM PRN (06:03)
[2020-12-11] MEDS ORDERED: SODIUM CHLORIDE 0.9% 1,000 ML IV SCH (06:03)
[2020-12-11] MEDS ORDERED: MAGNESIUM SULF RIDER 4 GM/100 ML PREMIX IV PRN (06:03)
[2020-12-11] MEDS ORDERED: DEXTROSE 50% 25 GM/50 ML VIAL IV PRN (06:03)
[2020-12-11] MEDS: INSULIN REGULAR 100 UNIT/ML SUBCUT SCH ×2 (06:41→12:20)
[2020-12-11] MEDS ORDERED: ACETAMINOPHEN 325 MG TABLET PO PRN (07:55)
[2020-12-11] MEDS ORDERED: ACETAMINOPHEN 325 MG TABLET ONE (07:57)
[2020-12-11] MEDS ORDERED: SACUBITRIL/VALSARTAN 49-51 MG TABLET PO SCH (09:00)
[2020-12-11] MEDS ORDERED: ASPIRIN EC 81 MG TABLET PO SCH (09:00)
[2020-12-11] MEDS ORDERED: MAGNESIUM OXIDE 400 MG TABLET PO SCH (09:00)
[2020-12-11] MEDS ORDERED: carvediloL 25 MG TABLET PO SCH (09:00)
[2020-12-11] MEDS ORDERED: FUROSEMIDE 80 MG TABLET PO SCH (09:00)
[2020-12-11] MEDS ORDERED: PANTOPRAZOLE 40 MG TABLET PO SCH (09:00)
[2020-12-11] MEDS ORDERED: SPIRONOLACTONE 25 MG TABLET PO SCH (09:00)
[2020-12-11] MEDS ORDERED: BUDESONIDE/FORMOTEROL 80-4.5 INHALER 6.9 GM INH SCH (09:00)
[2020-12-11] MEDS ORDERED: ENOXAPARIN 40 MG/0.4 ML SYRINGE SUBCUT SCH (09:00)
[2020-12-11] MEDS ORDERED: DIGOXIN 0.25 MG TABLET PO SCH (13:00)
[2020-12-11 13:57] LABS: Bilirubin,Urine Negative (Negative); Blood, Urine Negative (Negative); Glucose,Urine (UA) >=500 mg/dL (Negative); Ketones,Urine Negative (Negative); Nitrite,Urine Negative (Negative); Protein,Urine Negative; RBC,Urine <1 /HPF (0-4); Squamous Epithelial Cell,Urine Occasional /HPF (0-10); Urine Appearance CLEAR (Clear); Urine Color Colorless (Yellow); Urine Specific Gravity 1.008 (1.001-1.035); Urine Urobilinogen < 2.0 EU/DL (0.2-1.0)
[2020-12-11 14:25] LABS: Barbiturates Screen,Urine Negative (Negative); Benzodiazepines Screen,Urine Negative (Negative); Cannabinoid Screen,Urine Negative (Negative); Opiate Screen,Urine Negative (Negative); Phencyclidine Screen,Urine Negative (Negative)
[2020-12-11 16:41] VITALS: BP 91/59
== END 2020-12-11 16:59 | disposition home or self-care (01) ==
LOC: EDBD → EDUNIT# → N.ED 00:20 → N.EDINP 00:20 → N.TELES 05:19
PROVIDERS: ADMIT Internal Medicine Cardiovascular Disease; ATTEND Internal Medicine Cardiovascular Disease

== ENCOUNTER 2021-07-16 01:07 | Inpatient (IN) ==
[2021-07-16] MEDS ORDERED: HYDROmorphone 1 MG/1 ML SYRINGE IV STA (01:41)
[2021-07-16] MEDS ORDERED: SODIUM CHLORIDE 0.9% 1,000 ML IV STA (01:41)
[2021-07-16] MEDS ORDERED: ONDANSETRON 4 MG/2 ML VIAL IV STA (01:41)
[2021-07-16] MEDS ORDERED: PIPERACILLIN/TAZOBACTAM 3,375 MG in SODIUM CHLORIDE 0.9% 100 ML IV STA (01:41)
[2021-07-16] MEDS ORDERED: PANTOPRAZOLE 40 MG VIAL IV STA (01:41)
[2021-07-16 02:06] LABS: Basophils % 0.2 % (0.0-0.8); Eosinophils % 0.1 % (0.00-10.9); Hematocrit 47.2 VOL% (35.7-47.0); Hemoglobin 15.1 GM/DL (12.0-16.0); Immature Granulocytes % 0.4 %; Immature Granulocytes Absolute 0.04 #; Lymphocytes # 1.4 10*3/uL (1.4-4.0); Lymphocytes % 14.3 % (21.3-54.2); Mean Platelet Volume 11.1 FL (9.6-12.0); Monocytes % 10.4 % (1.7-12.7); Neutrophils % 74.6 % (38.7-73.9); Platelet Count 197 T/CUMM (130-400); Red Blood Count 5.13 MC/CUMM (3.8-5.5); Red Cell Distribution Width 14.4 % (9.3-17.3)
[2021-07-16 02:21] LABS: Albumin 2.3 G/DL (3.4-5.0); Bilirubin,Total 1.7 MG/DL (0.20-1.00); Calcium 8.7 MG/DL (8.5-10.1); Osmolality,Calculated 275.4 MOS/KG (273-304); Potassium 4.3 MMOL/L (3.5-5.1); Total Protein 6.8 G/DL (6.4-8.2)
[2021-07-16 02:32] LABS: Urine Appearance Clear (Clear); Urine Color Yellow (Yellow)
[2021-07-16 02:33] LABS: Bilirubin,Urine Negative (Negative); Blood, Urine Trace mg/dL (Negative); Glucose,Urine (UA) >=1000 mg/dL (Negative); Ketones,Urine Negative (Negative); Nitrite,Urine Negative (Negative); Protein,Urine Negative (Negative); Urine Specific Gravity <= 1.005 (1.001-1.035)
[2021-07-16 02:35] LABS: RBC,Urine <1 /HPF (0-4); Squamous Epithelial Cell,Urine Occasional /HPF (0-10)
[2021-07-16] MEDS ORDERED: GLUCAGON 1 MG VIAL IM PRN (03:26)
[2021-07-16] MEDS ORDERED: ONDANSETRON 4 MG/2 ML VIAL IV PRN ×3 (03:26→14:07)
[2021-07-16] MEDS ORDERED: ACETAMINOPHEN 325 MG TABLET PO PRN (03:26)
[2021-07-16] MEDS ORDERED: MORPHINE 4 MG/1 ML VIAL IV PRN (03:29)
[2021-07-16] MEDS ORDERED: DEXTROSE 10% 250 ML BAG IV PRN ×2 (03:30→15:00)
[2021-07-16 05:08] LABS: Basophils % 0.1 % (0.0-0.8); Eosinophils % 0.1 % (0.00-10.9); Hemoglobin 14.2 GM/DL (12.0-16.0); Immature Granulocytes % 0.6 %; Immature Granulocytes Absolute 0.06 #; Lymphocytes # 1.1 10*3/uL (1.4-4.0); Lymphocytes % 11.8 % (21.3-54.2); Mean Corpuscular HGB Conc 32.3 GM/DL (32-36); Mean Corpuscular Volume 91.3 FL (87-102); Mean Platelet Volume 11.2 FL (9.6-12.0); Monocytes % 11.3 % (1.7-12.7); Neutrophils % 76.1 % (38.7-73.9); Platelet Count 183 T/CUMM (130-400); Red Blood Count 4.82 MC/CUMM (3.8-5.5); Red Cell Distribution Width 14.4 % (9.3-17.3); White Blood Count 9.6 T/CUMM (4-12)
[2021-07-16 05:34] LABS: Bilirubin,Total 1.6 MG/DL (0.20-1.00); Calcium 8.3 MG/DL (8.5-10.1); Osmolality,Calculated 273.4 MOS/KG (273-304); Potassium 3.5 MMOL/L (3.5-5.1); Total Protein 6.8 G/DL (6.4-8.2)
[2021-07-16] MEDS: INSULIN REGULAR 100 UNIT/ML SUBCUT SCH ×3 (06:09→17:19)
[2021-07-16] MEDS ORDERED: ALBUTEROL/IPRATROPIUM 3 ML NEB RESP TX PRN ×2 (08:57→14:23)
[2021-07-16] MEDS ORDERED: BENZONATATE 100 MG CAPSULE PO SCH (09:00)
[2021-07-16] MEDS: PANTOPRAZOLE 40 MG VIAL IV SCH (09:11)
[2021-07-16] MEDS ORDERED: MAGNESIUM SULF RIDER 2 GM/50 ML PREMIX IV STA ×2 (09:37→14:28)
[2021-07-16] MEDS ORDERED: POTASSIUM CHLORIDE RIDER 10 MEQ/100 ML PREMIX IV ONE ×2 (09:38→14:23)
[2021-07-16] MEDS ORDERED: HYDROmorphone 1 MG/1 ML SYRINGE IV PRN ×3 (10:01→14:07)
[2021-07-16 10:12] LABS: Barbiturates Screen,Urine Negative (Negative); Benzodiazepines Screen,Urine Negative (Negative); Cannabinoid Screen,Urine Negative (Negative); Opiate Screen,Urine Positive (Negative); Phencyclidine Screen,Urine Negative (Negative)
[2021-07-16] MEDS ORDERED: BUPIVACAINE MPF 0.25% 30 ML VIAL ONE (12:17)
[2021-07-16] MEDS ORDERED: LIDOCAINE 1%/EPI INJ 20 ML VIAL ONE (12:17)
[2021-07-16] MEDS ORDERED: BUDESONIDE/FORMOTEROL 80-4.5 INHALER 6.9 GM INH PRN (12:17)
[2021-07-16] MEDS ORDERED: SEVOFLURANE 1 UNIT/15 MINUTE INH ONE ×2 (12:36→13:53)
[2021-07-16] MEDS ORDERED: ETOMIDATE 40 MG/20 ML VIAL IV ONE (12:36)
[2021-07-16] MEDS ORDERED: LIDOCAINE 2% 5 ML VIAL ONE (12:36)
[2021-07-16] MEDS ORDERED: ROCURONIUM 50 MG/5 ML VIAL IV ONE ×2 (12:36→13:23)
[2021-07-16] MEDS ORDERED: ALBUTEROL/IPRATROPIUM 3 ML NEB RESP TX SCH (13:00)
[2021-07-16] MEDS ORDERED: propofoL 200 MG/20 ML VIAL IV ONE (13:01)
[2021-07-16] MEDS ORDERED: PHENYLEPHRINE 1 MG/10 ML SYRINGE IV ONE (13:05)
[2021-07-16] MEDS ORDERED: SUCCINYLCHOLINE 200 MG/10 ML VIAL ONE (13:06)
[2021-07-16] MEDS ORDERED: fentaNYL 100 MCG/2 ML VIAL ONE (13:20)
[2021-07-16] MEDS ORDERED: LACTATED RINGERS 1,000 ML IV ONE (13:24)
[2021-07-16] MEDS ORDERED: PROMETHAZINE INJ 25 MG in SODIUM CHLORIDE 0.9% 50 ML IV PRN (14:07)
[2021-07-16] MEDS ORDERED: diphenhydrAMINE 50 MG/1 ML VIAL IV PRN (14:07)
[2021-07-16] MEDS: MEPERIDINE 25 MG/1 ML VIAL IV PRN ×2 (14:15→14:25)
[2021-07-16] MEDS ORDERED: SUGAMMADEX 200 MG/2 ML VIAL IV ONE (14:19)
[2021-07-16] MEDS ORDERED: DEXTROSE 50% 25 GM/50 ML VIAL IV PRN (14:23)
[2021-07-16] MEDS ORDERED: PIPERACILLIN/TAZOBACTAM 3,375 MG VIAL IV ONE (14:24)
[2021-07-16] MEDS ORDERED: SODIUM CHLORIDE 0.9% 100 ML IV ONE (14:25)
[2021-07-16] MEDS ORDERED: PROMETHAZINE 25 MG/1 ML VIAL ONE (14:26)
[2021-07-16] MEDS: PIPERACILLIN/TAZOBACTAM 3,375 MG in SODIUM CHLORIDE 0.9% 100 ML IV SCH ×2 (14:43→18:07)
[2021-07-16] MEDS: LACTATED RINGERS 1,000 ML IV SCH (14:46)
[2021-07-16] MEDS ORDERED: LACTATED RINGERS 250 ML IV ONE (17:21)
[2021-07-16 17:32] LABS: Hematocrit 51.6 VOL% (35.7-47.0); Hemoglobin 15.9 GM/DL (12.0-16.0)
[2021-07-16 18:00] LABS: Albumin 1.9 G/DL (3.4-5.0); Bilirubin,Total 2.2 MG/DL (0.20-1.00); Calcium 8.8 MG/DL (8.5-10.1); Osmolality,Calculated 267.5 MOS/KG (273-304); Potassium 4.6 MMOL/L (3.5-5.1); Total Protein 7.6 G/DL (6.4-8.2)
[2021-07-16] MEDS ORDERED: SODIUM CHLORIDE 0.9% 500 ML IV ONE (21:01)
[2021-07-17] MEDS: SACUBITRIL/VALSARTAN 49-51 MG TABLET PO SCH ×3 (05:34→21:12)
[2021-07-17] MEDS: INSULIN REGULAR 100 UNIT/ML SUBCUT SCH ×4 (05:34→17:35)
[2021-07-17] MEDS: carvediloL 12.5 MG TABLET PO SCH ×2 (05:34→10:19)
[2021-07-17] MEDS: LACTATED RINGERS 1,000 ML IV SCH ×2 (05:35→10:19)
[2021-07-17] MEDS: PIPERACILLIN/TAZOBACTAM 3,375 MG in SODIUM CHLORIDE 0.9% 100 ML IV SCH ×3 (05:55→18:17)
[2021-07-17 06:45] LABS: Basophils % 0.3 % (0.0-0.8); Hematocrit 45.2 VOL% (35.7-47.0); Hemoglobin 14.3 GM/DL (12.0-16.0); Immature Granulocytes % 2.4 %; Immature Granulocytes Absolute 0.36 #; Lymphocytes # 0.8 10*3/uL (1.4-4.0); Mean Corpuscular HGB Conc 31.6 GM/DL (32-36); Mean Corpuscular Volume 93.4 FL (87-102); Mean Platelet Volume 11.1 FL (9.6-12.0); Monocytes % 9.7 % (1.7-12.7); Neutrophils % 82.6 % (38.7-73.9); Platelet Count 165 T/CUMM (130-400); Red Blood Count 4.84 MC/CUMM (3.8-5.5); Red Cell Distribution Width 14.6 % (9.3-17.3); White Blood Count 15.3 T/CUMM (4-12)
[2021-07-17 07:03] LABS: Albumin 1.6 G/DL (3.4-5.0); Bilirubin,Total 2.7 MG/DL (0.20-1.00); Calcium 7.7 MG/DL (8.5-10.1); Osmolality,Calculated 272.1 MOS/KG (273-304); Potassium 3.7 MMOL/L (3.5-5.1); Risk Ratio 3.72; Total Protein 6.3 G/DL (6.4-8.2); VLDL Cholesterol 13.2 MG/DL
[2021-07-17 07:07] LABS: Band Neutrophils 10 % (0-10); Hypochromia Slight; Lymphocytes 6 % (20-55); Microcytosis Slight; Segmented Neutrophils 71 % (50-85); Total Cells Counted 100
[2021-07-17 07:08] LABS: Platelet Estimate Adequate
[2021-07-17] MEDS ORDERED: MAGNESIUM SULF INJ 3 GM in SODIUM CHLORIDE 0.9% 100 ML IV ONE (07:28)
[2021-07-17] MEDS ORDERED: MAGNESIUM SULF RIDER 4 GM/100 ML PREMIX IV ONE (08:00)
[2021-07-17] MEDS: ENOXAPARIN 40 MG/0.4 ML SYRINGE SUBCUT SCH (08:43)
[2021-07-17] MEDS: SODIUM CHLORIDE 0.9% 1,000 ML IV SCH (08:44)
[2021-07-17] MEDS: ASPIRIN EC 81 MG TABLET PO SCH (08:45)
[2021-07-17] MEDS: PANTOPRAZOLE 40 MG VIAL IV SCH (08:45)
[2021-07-17] MEDS: DIGOXIN 0.25 MG TABLET PO SCH (08:46)
[2021-07-17] MEDS: diphenhydrAMINE CAP 25 MG CAPSULE PO PRN ×2 (10:34→21:10)
[2021-07-17] MEDS: carvediloL 3.125 MG TABLET PO SCH (17:35)
[2021-07-17] MEDS: SIMVASTATIN 40 MG TABLET PO SCH (21:10)
[2021-07-18] MEDS: INSULIN REGULAR 100 UNIT/ML SUBCUT SCH ×4 (00:11→17:26)
[2021-07-18] MEDS: KETOROLAC 30 MG/1 ML VIAL IV PRN ×3 (02:36→20:43)
[2021-07-18] MEDS: PIPERACILLIN/TAZOBACTAM 3,375 MG in SODIUM CHLORIDE 0.9% 100 ML IV SCH ×3 (02:36→18:00)
[2021-07-18 06:46] LABS: Basophils % 0.1 % (0.0-0.8); Hematocrit 42.5 VOL% (35.7-47.0); Hemoglobin 13.6 GM/DL (12.0-16.0); Immature Granulocytes % 1.7 %; Immature Granulocytes Absolute 0.24 #; Lymphocytes # 0.9 10*3/uL (1.4-4.0); Lymphocytes % 6.2 % (21.3-54.2); Mean Platelet Volume 11.1 FL (9.6-12.0); Monocytes % 7.6 % (1.7-12.7); Neutrophils % 84.4 % (38.7-73.9); Platelet Count 185 T/CUMM (130-400); Red Blood Count 4.62 MC/CUMM (3.8-5.5); Red Cell Distribution Width 14.6 % (9.3-17.3); White Blood Count 14.1 T/CUMM (4-12)
[2021-07-18 07:01] LABS: Calcium 8.1 MG/DL (8.5-10.1); Osmolality,Calculated 269.7 MOS/KG (273-304); Potassium 4.2 MMOL/L (3.5-5.1)
[2021-07-18] MEDS ORDERED: SODIUM CHLORIDE 0.9% 250 ML IV ONE (07:39)
[2021-07-18] MEDS: SODIUM CHLORIDE 0.9% 1,000 ML IV SCH (09:24)
[2021-07-18] MEDS: PANTOPRAZOLE 40 MG VIAL IV SCH (09:25)
[2021-07-18] MEDS: carvediloL 3.125 MG TABLET PO SCH ×2 (09:25→17:25)
[2021-07-18] MEDS: DIGOXIN 0.25 MG TABLET PO SCH (09:25)
[2021-07-18] MEDS: ASPIRIN EC 81 MG TABLET PO SCH (09:25)
[2021-07-18] MEDS: ENOXAPARIN 40 MG/0.4 ML SYRINGE SUBCUT SCH (09:26)
[2021-07-18] MEDS ORDERED: SODIUM CHLORIDE 0.9% 1,000 ML IV SCH (12:30)
[2021-07-18] MEDS: SIMVASTATIN 40 MG TABLET PO SCH (20:43)
[2021-07-19] MEDS: MELATONIN 3 MG TABLET PO PRN ×2 (00:18→21:32)
[2021-07-19] MEDS: INSULIN REGULAR 100 UNIT/ML SUBCUT SCH ×4 (00:54→17:48)
[2021-07-19] MEDS: PIPERACILLIN/TAZOBACTAM 3,375 MG in SODIUM CHLORIDE 0.9% 100 ML IV SCH ×3 (03:33→21:32)
[2021-07-19] MEDS: KETOROLAC 30 MG/1 ML VIAL IV PRN ×2 (03:36→08:42)
[2021-07-19 06:26] LABS: Basophils % 0.2 % (0.0-0.8); Eosinophils % 0.2 % (0.00-10.9); Hematocrit 42.1 VOL% (35.7-47.0); Hemoglobin 13.5 GM/DL (12.0-16.0); Immature Granulocytes % 0.8 %; Immature Granulocytes Absolute 0.09 #; Lymphocytes # 1.1 10*3/uL (1.4-4.0); Lymphocytes % 9.4 % (21.3-54.2); Mean Corpuscular HGB Conc 32.1 GM/DL (32-36); Mean Corpuscular Volume 90.9 FL (87-102); Mean Platelet Volume 11.3 FL (9.6-12.0); Monocytes % 9.2 % (1.7-12.7); Neutrophils % 80.2 % (38.7-73.9); Platelet Count 213 T/CUMM (130-400); Red Blood Count 4.63 MC/CUMM (3.8-5.5); Red Cell Distribution Width 14.7 % (9.3-17.3)
[2021-07-19 06:42] LABS: Osmolality,Calculated 264.9 MOS/KG (273-304); Potassium 3.9 MMOL/L (3.5-5.1)
[2021-07-19] MEDS: PANTOPRAZOLE 40 MG VIAL IV SCH (08:42)
[2021-07-19] MEDS: DIGOXIN 0.25 MG TABLET PO SCH (08:43)
[2021-07-19] MEDS: ENOXAPARIN 40 MG/0.4 ML SYRINGE SUBCUT SCH (08:43)
[2021-07-19] MEDS: carvediloL 3.125 MG TABLET PO SCH ×2 (08:43→17:48)
[2021-07-19] MEDS: ASPIRIN EC 81 MG TABLET PO SCH (08:43)
[2021-07-19] MEDS: SACUBITRIL/VALSARTAN 49-51 MG TABLET PO SCH ×2 (08:43→21:31)
[2021-07-19] MEDS: BISACODYL 5 MG TABLET PO SCH (11:54)
[2021-07-19] MEDS: SODIUM CHLORIDE 1 GM TABLET PO SCH (21:32)
[2021-07-19] MEDS: SIMVASTATIN 40 MG TABLET PO SCH (21:32)
[2021-07-20] MEDS: INSULIN REGULAR 100 UNIT/ML SUBCUT SCH ×4 (00:56→21:01)
[2021-07-20] MEDS: PIPERACILLIN/TAZOBACTAM 3,375 MG in SODIUM CHLORIDE 0.9% 100 ML IV SCH ×3 (05:30→21:40)
[2021-07-20 06:39] LABS: Basophils % 0.5 % (0.0-0.8); Eosinophils % 0.1 % (0.00-10.9); Hematocrit 42.2 VOL% (35.7-47.0); Hemoglobin 13.6 GM/DL (12.0-16.0); Immature Granulocytes % 0.6 %; Immature Granulocytes Absolute 0.05 #; Lymphocytes # 1.2 10*3/uL (1.4-4.0); Lymphocytes % 14.9 % (21.3-54.2); Mean Corpuscular HGB Conc 32.2 GM/DL (32-36); Mean Corpuscular Volume 90.8 FL (87-102); Monocytes % 9.6 % (1.7-12.7); Neutrophils % 74.3 % (38.7-73.9); Platelet Count 238 T/CUMM (130-400); Red Blood Count 4.65 MC/CUMM (3.8-5.5); Red Cell Distribution Width 14.6 % (9.3-17.3); White Blood Count 7.8 T/CUMM (4-12)
[2021-07-20 07:07] LABS: Alanine Aminotransferase < 6 U/L (13-56); Albumin 1.6 G/DL (3.4-5.0); Alkaline Phosphatase 149 U/L (45-117); Aspartate Amino Transferase 13 U/L (0-37); Bilirubin,Indirect 0.4 MG/DL (0.0-1.0); Total Protein 6.7 G/DL (6.4-8.2)
[2021-07-20 07:15] LABS: Calcium 8.5 MG/DL (8.5-10.1); Osmolality,Calculated 268.7 MOS/KG (273-304); Potassium 3.8 MMOL/L (3.5-5.1)
[2021-07-20] MEDS: carvediloL 3.125 MG TABLET PO SCH ×3 (09:11→16:12)
[2021-07-20] MEDS: SACUBITRIL/VALSARTAN 49-51 MG TABLET PO SCH ×2 (09:11→21:59)
[2021-07-20] MEDS: DIGOXIN 0.25 MG TABLET PO SCH (09:11)
[2021-07-20] MEDS: SODIUM CHLORIDE 1 GM TABLET PO SCH ×3 (09:11→21:39)
[2021-07-20] MEDS: ASPIRIN EC 81 MG TABLET PO SCH (09:11)
[2021-07-20] MEDS: ENOXAPARIN 40 MG/0.4 ML SYRINGE SUBCUT SCH (09:11)
[2021-07-20] MEDS: PANTOPRAZOLE 40 MG VIAL IV SCH (09:11)
[2021-07-20] MEDS: BISACODYL 5 MG TABLET PO SCH (09:11)
[2021-07-20] MEDS: SIMVASTATIN 40 MG TABLET PO SCH (21:39)
[2021-07-21] MEDS: PIPERACILLIN/TAZOBACTAM 3,375 MG in SODIUM CHLORIDE 0.9% 100 ML IV SCH ×2 (06:31→14:47)
[2021-07-21 07:28] LABS: Basophils % 0.3 % (0.0-0.8); Eosinophils % 0.3 % (0.00-10.9); Hematocrit 41.2 VOL% (35.7-47.0); Immature Granulocytes % 0.8 %; Immature Granulocytes Absolute 0.06 #; Lymphocytes # 1.2 10*3/uL (1.4-4.0); Lymphocytes % 14.6 % (21.3-54.2); Mean Corpuscular HGB Conc 31.6 GM/DL (32-36); Mean Corpuscular Volume 91.4 FL (87-102); Mean Platelet Volume 10.3 FL (9.6-12.0); Monocytes % 11.9 % (1.7-12.7); Neutrophils % 72.1 % (38.7-73.9); Platelet Count 253 T/CUMM (130-400); Red Blood Count 4.51 MC/CUMM (3.8-5.5); Red Cell Distribution Width 14.6 % (9.3-17.3)
[2021-07-21] MEDS: INSULIN REGULAR 100 UNIT/ML SUBCUT SCH ×3 (07:47→17:20)
[2021-07-21 07:56] LABS: Calcium 8.5 MG/DL (8.5-10.1); Osmolality,Calculated 264.7 MOS/KG (273-304); Potassium 4.2 MMOL/L (3.5-5.1)
[2021-07-21] MEDS ORDERED: SPIRONOLACTONE 25 MG TABLET PO SCH (09:00)
[2021-07-21] MEDS ORDERED: MAGNESIUM OXIDE 400 MG TABLET PO SCH (09:00)
[2021-07-21] MEDS: DIGOXIN 0.25 MG TABLET PO SCH (10:03)
[2021-07-21] MEDS: ASPIRIN EC 81 MG TABLET PO SCH (10:03)
[2021-07-21] MEDS: SODIUM CHLORIDE 1 GM TABLET PO SCH ×2 (10:03→15:14)
[2021-07-21] MEDS: BISACODYL 5 MG TABLET PO SCH (10:03)
[2021-07-21] MEDS: PANTOPRAZOLE 40 MG VIAL IV SCH (10:04)
[2021-07-21] MEDS: SACUBITRIL/VALSARTAN 49-51 MG TABLET PO SCH (10:04)
[2021-07-21] MEDS: FUROSEMIDE 80 MG TABLET PO SCH ×2 (10:04→15:15)
[2021-07-21] MEDS: carvediloL 3.125 MG TABLET PO SCH ×2 (10:04→17:20)
[2021-07-21] MEDS: ENOXAPARIN 40 MG/0.4 ML SYRINGE SUBCUT SCH (10:04)
[2021-07-21 11:52] VITALS: BP 117/77
== END 2021-07-21 17:25 | disposition home health service (06) | DRG 339 ==
LOC: N.ED 01:07 → N.EDINP 02:39 → N.3E 12:50
PROVIDERS: ADMIT Surgery; ATTEND Surgery

== ENCOUNTER 2021-08-07 04:12 | Inpatient (IN) ==
[2021-08-07] MEDS ORDERED: PANTOPRAZOLE 40 MG VIAL IV STA (04:31)
[2021-08-07] MEDS ORDERED: ONDANSETRON 4 MG/2 ML VIAL IV STA (04:31)
[2021-08-07] MEDS ORDERED: HYDROmorphone 1 MG/1 ML SYRINGE IV STA (04:31)
[2021-08-07] MEDS ORDERED: SODIUM CHLORIDE 0.9% 1,000 ML IV STA (04:31)
[2021-08-07 05:33] LABS: Basophils # 0.1 10*3/uL (0.0-0.2); Basophils % 0.3 % (0.0-0.8); Hematocrit 39.1 VOL% (35.7-47.0); Hemoglobin 12.7 GM/DL (12.0-16.0); Immature Granulocytes % 1.1 %; Immature Granulocytes Absolute 0.23 #; Lymphocytes # 1.3 10*3/uL (1.4-4.0); Lymphocytes % 6.4 % (21.3-54.2); Mean Corpuscular HGB Conc 32.5 GM/DL (32-36); Mean Corpuscular Volume 89.1 FL (87-102); Mean Platelet Volume 10.5 FL (9.6-12.0); Monocytes # 1.8 10*3/uL (0.11-0.8); Monocytes % 8.9 % (1.7-12.7); Neutrophils % 83.3 % (38.7-73.9); Platelet Count 208 T/CUMM (130-400); Red Blood Count 4.39 MC/CUMM (3.8-5.5); Red Cell Distribution Width 14.9 % (9.3-17.3); White Blood Count 20.4 T/CUMM (4-12)
[2021-08-07 05:44] LABS: Bacteria,Urine Occasional /HPF (Few); Mucus,Urine Few /LPF (Occasional); RBC,Urine 94 /HPF (0-4); Squamous Epithelial Cell,Urine Occasional /HPF (0-10)
[2021-08-07 05:45] LABS: Glucose,Urine (UA) >=1000 mg/dL (Negative); Ketones,Urine Negative (Negative); Nitrite,Urine Negative (Negative); Protein,Urine >=300 mg/dL (Negative); Urine Appearance SL CLOUDY (Clear); Urine Color Yellow (Yellow); Urine Specific Gravity >= 1.030 (1.001-1.035); Urine pH 5.5 (4.5-8.0)
[2021-08-07 05:46] LABS: Bilirubin,Urine Small mg/dL (Negative); Blood, Urine Moderate mg/dL (Negative)
[2021-08-07 05:52] LABS: Band Neutrophils 1 % (0-10); Lymphocytes 6 % (20-55); Total Cells Counted 100
[2021-08-07 05:53] LABS: Hypochromia 1+; Microcytosis Slight; Platelet Estimate Normal
[2021-08-07] MEDS ORDERED: PIPERACILLIN/TAZOBACTAM 3,375 MG in SODIUM CHLORIDE 0.9% 100 ML IV STA (05:59)
[2021-08-07] MEDS ORDERED: ALUMINUM/MAGNES/SIMETH MAX STR 30 ML UDCUP PO PRN (07:51)
[2021-08-07] MEDS ORDERED: hydrALAZINE 20 MG/1 ML VIAL IV PRN (07:51)
[2021-08-07] MEDS ORDERED: GLUCAGON 1 MG VIAL IM PRN (07:51)
[2021-08-07] MEDS ORDERED: ACETAMINOPHEN 325 MG TABLET PO PRN (07:51)
[2021-08-07] MEDS ORDERED: LACTULOSE 20 GM/30 ML UDCUP PO PRN (07:51)
[2021-08-07] MEDS ORDERED: DEXTROSE 10% 250 ML BAG IV PRN (07:55)
[2021-08-07 08:18] LABS: INR 1.3; PT Patient Result 14.4 SECS (10.5-12.0)
[2021-08-07 08:36] LABS: Albumin 1.8 G/DL (3.4-5.0); Bilirubin,Total 1.3 MG/DL (0.20-1.00); Calcium 8.2 MG/DL (8.5-10.1); Osmolality,Calculated 263.9 MOS/KG (273-304); Potassium 4.1 MMOL/L (3.5-5.1); Total Protein 6.8 G/DL (6.4-8.2)
[2021-08-07 09:39] LABS: Barbiturates Screen,Urine Negative (Negative); Benzodiazepines Screen,Urine Negative (Negative); Cannabinoid Screen,Urine Negative (Negative); Opiate Screen,Urine Negative (Negative); Phencyclidine Screen,Urine Negative (Negative)
[2021-08-07] MEDS: PANTOPRAZOLE 40 MG TABLET PO SCH (12:10)
[2021-08-07] MEDS: DOCUSATE SODIUM 100 MG CAPSULE PO SCH ×2 (12:10→21:55)
[2021-08-07] MEDS: INSULIN REGULAR 100 UNIT/ML SUBCUT SCH ×2 (12:10→17:34)
[2021-08-07] MEDS ORDERED: SODIUM CHLORIDE 0.45% 1,000 ML IV SCH (14:00)
[2021-08-07] MEDS ORDERED: DIAZEPAM 5 MG TABLET PO ONE (14:00)
[2021-08-07] MEDS ORDERED: fentaNYL 100 MCG/2 ML VIAL IV ONE (14:30)
[2021-08-07] MEDS ORDERED: MIDAZOLAM 2 MG/2 ML VIAL IV ONE (14:30)
[2021-08-07] MEDS: PIPERACILLIN/TAZOBACTAM 3,375 MG in SODIUM CHLORIDE 0.9% 100 ML IV SCH (16:58)
[2021-08-07] MEDS ORDERED: MORPHINE 2 MG/1 ML SYRINGE IV ONE (19:18)
[2021-08-07] MEDS: ONDANSETRON 4 MG/2 ML VIAL IV PRN (19:34)
[2021-08-08] MEDS: PIPERACILLIN/TAZOBACTAM 3,375 MG in SODIUM CHLORIDE 0.9% 100 ML IV SCH ×3 (00:45→16:35)
[2021-08-08] MEDS: ONDANSETRON 4 MG/2 ML VIAL IV PRN ×3 (01:19→21:58)
[2021-08-08] MEDS: HYDROmorphone 1 MG/1 ML SYRINGE IV PRN ×3 (01:23→21:55)
[2021-08-08] MEDS: INSULIN REGULAR 100 UNIT/ML SUBCUT SCH ×5 (01:24→22:59)
[2021-08-08 05:57] LABS: Basophils % 0.2 % (0.0-0.8); Eosinophils % 0.1 % (0.00-10.9); Hematocrit 36.6 VOL% (35.7-47.0); Hemoglobin 11.7 GM/DL (12.0-16.0); Immature Granulocytes % 0.9 %; Immature Granulocytes Absolute 0.14 #; Lymphocytes # 1.4 10*3/uL (1.4-4.0); Lymphocytes % 8.9 % (21.3-54.2); Mean Corpuscular Volume 89.9 FL (87-102); Mean Platelet Volume 10.8 FL (9.6-12.0); Monocytes # 1.2 10*3/uL (0.11-0.8); Monocytes % 7.5 % (1.7-12.7); Neutrophils % 82.4 % (38.7-73.9); Platelet Count 203 T/CUMM (130-400); Red Blood Count 4.07 MC/CUMM (3.8-5.5); Red Cell Distribution Width 14.9 % (9.3-17.3); White Blood Count 16.2 T/CUMM (4-12)
[2021-08-08 06:14] LABS: Calcium 8.9 MG/DL (8.5-10.1); Osmolality,Calculated 262.9 MOS/KG (273-304); Potassium 4.4 MMOL/L (3.5-5.1)
[2021-08-08] MEDS ORDERED: SODIUM CHLORIDE 0.9% 500 ML IV ONE (08:56)
[2021-08-08] MEDS ORDERED: SODIUM CHLORIDE 0.9% 1,000 ML IV SCH (09:00)
[2021-08-08] MEDS: PANTOPRAZOLE 40 MG TABLET PO SCH (09:26)
[2021-08-08] MEDS: DOCUSATE SODIUM 100 MG CAPSULE PO SCH ×2 (09:26→21:05)
[2021-08-08] MEDS ORDERED: COLCHICINE 0.6 MG CAPSULE PO PRN (09:35)
[2021-08-08] MEDS ORDERED: carvediloL 12.5 MG TABLET PO SCH (10:00)
[2021-08-08] MEDS: DIGOXIN 0.25 MG TABLET PO SCH (11:42)
[2021-08-08] MEDS: BUDESONIDE/FORMOTEROL 80-4.5 INHALER 6.9 GM INH SCH ×2 (11:42→21:05)
[2021-08-08] MEDS: ASPIRIN EC 81 MG TABLET PO SCH (11:44)
[2021-08-08] MEDS: ENOXAPARIN 40 MG/0.4 ML SYRINGE SUBCUT SCH (12:22)
[2021-08-08] MEDS ORDERED: DIAZEPAM 5 MG TABLET PO ONE (14:00)
[2021-08-08] MEDS: FUROSEMIDE 80 MG TABLET PO SCH (16:35)
[2021-08-08] MEDS: carvediloL 25 MG TABLET PO SCH (16:35)
[2021-08-08] MEDS: SODIUM CHLORIDE 0.9% 1,000 ML IV SCH (16:36)
[2021-08-08] MEDS ORDERED: SIMETHICONE CHEW 125 MG TABLET PO PRN (16:57)
[2021-08-09] MEDS: PIPERACILLIN/TAZOBACTAM 3,375 MG in SODIUM CHLORIDE 0.9% 100 ML IV SCH ×3 (01:08→16:40)
[2021-08-09] MEDS: SODIUM CHLORIDE 0.9% 1,000 ML IV SCH ×3 (01:08→20:27)
[2021-08-09 06:23] LABS: Basophils % 0.3 % (0.0-0.8); Eosinophils % 0.2 % (0.00-10.9); Hematocrit 32.9 VOL% (35.7-47.0); Hemoglobin 10.5 GM/DL (12.0-16.0); Immature Granulocytes Absolute 0.15 #; Lymphocytes # 1.3 10*3/uL (1.4-4.0); Lymphocytes % 8.7 % (21.3-54.2); Mean Corpuscular HGB Conc 31.9 GM/DL (32-36); Mean Corpuscular Volume 88.9 FL (87-102); Monocytes % 6.6 % (1.7-12.7); Neutrophils % 83.2 % (38.7-73.9); Platelet Count 209 T/CUMM (130-400); White Blood Count 14.4 T/CUMM (4-12)
[2021-08-09 06:38] LABS: Calcium 8.6 MG/DL (8.5-10.1); Osmolality,Calculated 261.2 MOS/KG (273-304); Potassium 4.1 MMOL/L (3.5-5.1)
[2021-08-09] MEDS: INSULIN REGULAR 100 UNIT/ML SUBCUT SCH ×4 (09:30→20:29)
[2021-08-09] MEDS: HYDROmorphone 1 MG/1 ML SYRINGE IV PRN (09:36)
[2021-08-09] MEDS: DIGOXIN 0.25 MG TABLET PO SCH (09:38)
[2021-08-09] MEDS: FUROSEMIDE 80 MG TABLET PO SCH ×2 (09:39→16:39)
[2021-08-09] MEDS: MAGNESIUM OXIDE 400 MG TABLET PO SCH (09:39)
[2021-08-09] MEDS: carvediloL 25 MG TABLET PO SCH ×2 (09:39→16:39)
[2021-08-09] MEDS: ASPIRIN EC 81 MG TABLET PO SCH (09:39)
[2021-08-09] MEDS: PANTOPRAZOLE 40 MG TABLET PO SCH (09:39)
[2021-08-09] MEDS: DOCUSATE SODIUM 100 MG CAPSULE PO SCH ×2 (09:39→20:29)
[2021-08-09] MEDS: ONDANSETRON 4 MG/2 ML VIAL IV PRN (10:27)
[2021-08-09] MEDS: BUDESONIDE/FORMOTEROL 80-4.5 INHALER 6.9 GM INH SCH ×2 (10:27→20:30)
[2021-08-09] MEDS: ENOXAPARIN 40 MG/0.4 ML SYRINGE SUBCUT SCH (12:33)
[2021-08-09] MEDS: POLYETHYLENE GLYCOL POWDER 17 GM PACK PO SCH (12:33)
[2021-08-09] MEDS ORDERED: BISACODYL 10 MG SUPP RECTAL ONE (13:00)
[2021-08-09] MEDS: LACTULOSE 20 GM/30 ML UDCUP PO SCH (20:28)
[2021-08-10] MEDS: PIPERACILLIN/TAZOBACTAM 3,375 MG in SODIUM CHLORIDE 0.9% 100 ML IV SCH ×3 (00:11→16:29)
[2021-08-10 05:15] LABS: Basophils % 0.4 % (0.0-0.8); Eosinophils % 0.2 % (0.00-10.9); Hematocrit 32.7 VOL% (35.7-47.0); Hemoglobin 10.3 GM/DL (12.0-16.0); Immature Granulocytes % 0.7 %; Immature Granulocytes Absolute 0.06 #; Lymphocytes # 1.5 10*3/uL (1.4-4.0); Lymphocytes % 17.6 % (21.3-54.2); Mean Corpuscular HGB Conc 31.5 GM/DL (32-36); Mean Corpuscular Volume 90.6 FL (87-102); Mean Platelet Volume 10.4 FL (9.6-12.0); Monocytes # 0.7 10*3/uL (0.11-0.8); Monocytes % 7.8 % (1.7-12.7); Neutrophils % 73.3 % (38.7-73.9); Platelet Count 248 T/CUMM (130-400); Red Blood Count 3.61 MC/CUMM (3.8-5.5); White Blood Count 8.3 T/CUMM (4-12)
[2021-08-10 05:34] LABS: Calcium 8.6 MG/DL (8.5-10.1); Osmolality,Calculated 266.7 MOS/KG (273-304)
[2021-08-10] MEDS: INSULIN REGULAR 100 UNIT/ML SUBCUT SCH ×4 (08:01→20:44)
[2021-08-10] MEDS: LACTULOSE 20 GM/30 ML UDCUP PO SCH ×2 (09:13→20:44)
[2021-08-10] MEDS: LINACLOTIDE 145 MCG CAPSULE PO SCH (09:13)
[2021-08-10] MEDS: FUROSEMIDE 80 MG TABLET PO SCH ×2 (09:14→16:30)
[2021-08-10] MEDS: DOCUSATE SODIUM 100 MG CAPSULE PO SCH ×2 (09:15→20:44)
[2021-08-10] MEDS: MAGNESIUM OXIDE 400 MG TABLET PO SCH (09:15)
[2021-08-10] MEDS: PANTOPRAZOLE 40 MG TABLET PO SCH (09:16)
[2021-08-10] MEDS: ASPIRIN EC 81 MG TABLET PO SCH (09:16)
[2021-08-10] MEDS: carvediloL 25 MG TABLET PO SCH ×2 (09:16→16:30)
[2021-08-10] MEDS: DIGOXIN 0.25 MG TABLET PO SCH (09:16)
[2021-08-10] MEDS: POLYETHYLENE GLYCOL POWDER 17 GM PACK PO SCH (09:17)
[2021-08-10] MEDS: BUDESONIDE/FORMOTEROL 80-4.5 INHALER 6.9 GM INH SCH ×2 (09:18→20:44)
[2021-08-10] MEDS: ENOXAPARIN 40 MG/0.4 ML SYRINGE SUBCUT SCH (11:57)
[2021-08-10] MEDS: SODIUM CHLORIDE 0.9% 1,000 ML IV SCH (20:49)
[2021-08-11] MEDS: ONDANSETRON 4 MG/2 ML VIAL IV PRN ×3 (00:02→21:36)
[2021-08-11] MEDS: PIPERACILLIN/TAZOBACTAM 3,375 MG in SODIUM CHLORIDE 0.9% 100 ML IV SCH ×3 (00:03→16:37)
[2021-08-11] MEDS: HYDROmorphone 1 MG/1 ML SYRINGE IV PRN ×3 (00:03→21:35)
[2021-08-11 05:38] LABS: Basophils % 0.3 % (0.0-0.8); Eosinophils % 0.3 % (0.00-10.9); Hematocrit 35.6 VOL% (35.7-47.0); Hemoglobin 11.1 GM/DL (12.0-16.0); Immature Granulocytes % 1.1 %; Immature Granulocytes Absolute 0.08 #; Lymphocytes # 1.3 10*3/uL (1.4-4.0); Lymphocytes % 17.9 % (21.3-54.2); Mean Corpuscular HGB Conc 31.2 GM/DL (32-36); Mean Corpuscular Volume 90.6 FL (87-102); Mean Platelet Volume 10.4 FL (9.6-12.0); Monocytes # 0.7 10*3/uL (0.11-0.8); Monocytes % 9.2 % (1.7-12.7); Neutrophils % 71.2 % (38.7-73.9); Platelet Count 281 T/CUMM (130-400); Red Blood Count 3.93 MC/CUMM (3.8-5.5); Red Cell Distribution Width 15.2 % (9.3-17.3); White Blood Count 7.4 T/CUMM (4-12)
[2021-08-11 06:00] LABS: Calcium 8.3 MG/DL (8.5-10.1); Osmolality,Calculated 272.4 MOS/KG (273-304); Potassium 4.2 MMOL/L (3.5-5.1)
[2021-08-11] MEDS: SODIUM CHLORIDE 0.9% 1,000 ML IV SCH ×2 (06:25→21:29)
[2021-08-11] MEDS: INSULIN REGULAR 100 UNIT/ML SUBCUT SCH ×4 (08:04→21:32)
[2021-08-11] MEDS: LACTULOSE 20 GM/30 ML UDCUP PO SCH ×2 (09:35→21:30)
[2021-08-11] MEDS: MAGNESIUM OXIDE 400 MG TABLET PO SCH (09:35)
[2021-08-11] MEDS: LINACLOTIDE 145 MCG CAPSULE PO SCH (09:35)
[2021-08-11] MEDS: POLYETHYLENE GLYCOL POWDER 17 GM PACK PO SCH (09:35)
[2021-08-11] MEDS: FUROSEMIDE 80 MG TABLET PO SCH ×2 (09:36→16:35)
[2021-08-11] MEDS: ASPIRIN EC 81 MG TABLET PO SCH (09:36)
[2021-08-11] MEDS: PANTOPRAZOLE 40 MG TABLET PO SCH (09:36)
[2021-08-11] MEDS: DOCUSATE SODIUM 100 MG CAPSULE PO SCH ×2 (09:36→21:30)
[2021-08-11] MEDS: BUDESONIDE/FORMOTEROL 80-4.5 INHALER 6.9 GM INH SCH ×2 (09:38→21:32)
[2021-08-11] MEDS: DIGOXIN 0.25 MG TABLET PO SCH (09:39)
[2021-08-11] MEDS: carvediloL 25 MG TABLET PO SCH ×2 (10:20→16:36)
[2021-08-11] MEDS: ENOXAPARIN 40 MG/0.4 ML SYRINGE SUBCUT SCH (12:36)
[2021-08-12] MEDS: ONDANSETRON 4 MG/2 ML VIAL IV PRN (01:05)
[2021-08-12] MEDS: PIPERACILLIN/TAZOBACTAM 3,375 MG in SODIUM CHLORIDE 0.9% 100 ML IV SCH (01:10)
[2021-08-12] MEDS ORDERED: PROMETHAZINE INJ 25 MG in SODIUM CHLORIDE 0.9% 50 ML IV ONE (03:15)
[2021-08-12 06:16] LABS: Basophils % 0.4 % (0.0-0.8); Eosinophils % 0.5 % (0.00-10.9); Hematocrit 34.2 VOL% (35.7-47.0); Hemoglobin 10.7 GM/DL (12.0-16.0); Immature Granulocytes % 1.1 %; Immature Granulocytes Absolute 0.09 #; Lymphocytes # 1.3 10*3/uL (1.4-4.0); Lymphocytes % 15.7 % (21.3-54.2); Mean Corpuscular HGB Conc 31.3 GM/DL (32-36); Mean Corpuscular Volume 91.4 FL (87-102); Mean Platelet Volume 10.1 FL (9.6-12.0); Monocytes # 0.7 10*3/uL (0.11-0.8); Monocytes % 8.7 % (1.7-12.7); Neutrophils % 73.6 % (38.7-73.9); Platelet Count 311 T/CUMM (130-400); Red Blood Count 3.74 MC/CUMM (3.8-5.5); Red Cell Distribution Width 15.2 % (9.3-17.3); White Blood Count 8.1 T/CUMM (4-12)
[2021-08-12 06:35] LABS: Calcium 8.6 MG/DL (8.5-10.1); Osmolality,Calculated 272.2 MOS/KG (273-304); Potassium 4.1 MMOL/L (3.5-5.1)
[2021-08-12] MEDS: FUROSEMIDE 80 MG TABLET PO SCH ×2 (11:34→16:30)
[2021-08-12] MEDS: INSULIN REGULAR 100 UNIT/ML SUBCUT SCH ×4 (11:34→22:18)
[2021-08-12] MEDS: LINACLOTIDE 145 MCG CAPSULE PO SCH (11:34)
[2021-08-12] MEDS: LACTULOSE 20 GM/30 ML UDCUP PO SCH ×2 (11:35→22:18)
[2021-08-12] MEDS: ASPIRIN EC 81 MG TABLET PO SCH (11:35)
[2021-08-12] MEDS: carvediloL 25 MG TABLET PO SCH ×2 (11:35→16:30)
[2021-08-12] MEDS: DOCUSATE SODIUM 100 MG CAPSULE PO SCH ×2 (11:35→22:18)
[2021-08-12] MEDS: MAGNESIUM OXIDE 400 MG TABLET PO SCH (11:36)
[2021-08-12] MEDS: PANTOPRAZOLE 40 MG TABLET PO SCH (11:36)
[2021-08-12] MEDS: POLYETHYLENE GLYCOL POWDER 17 GM PACK PO SCH ×2 (11:36→22:18)
[2021-08-12] MEDS: DIGOXIN 0.25 MG TABLET PO SCH (11:36)
[2021-08-12] MEDS: BUDESONIDE/FORMOTEROL 80-4.5 INHALER 6.9 GM INH SCH ×2 (11:37→22:18)
[2021-08-12] MEDS: cefTRIAXone 2,000 MG in SODIUM CHLORIDE 0.9% 100 ML IV SCH (11:38)
[2021-08-12] MEDS: LUBIPROSTONE 8 MCG CAPSULE PO SCH (22:18)
[2021-08-12] MEDS: ENOXAPARIN 40 MG/0.4 ML SYRINGE SUBCUT SCH (22:18)
[2021-08-13] MEDS: HYDROmorphone 1 MG/1 ML SYRINGE IV PRN ×3 (00:34→21:52)
[2021-08-13] MEDS: ONDANSETRON 4 MG/2 ML VIAL IV PRN ×3 (00:34→21:51)
[2021-08-13 06:02] LABS: Basophils % 0.4 % (0.0-0.8); Eosinophils # 0.1 10*3/uL (0.0-0.87); Eosinophils % 0.8 % (0.00-10.9); Hematocrit 35.1 VOL% (35.7-47.0); Hemoglobin 11.1 GM/DL (12.0-16.0); Immature Granulocytes % 1.1 %; Immature Granulocytes Absolute 0.09 #; Lymphocytes # 1.4 10*3/uL (1.4-4.0); Lymphocytes % 16.6 % (21.3-54.2); Mean Corpuscular HGB Conc 31.6 GM/DL (32-36); Mean Corpuscular Volume 90.5 FL (87-102); Mean Platelet Volume 10.7 FL (9.6-12.0); Monocytes # 0.8 10*3/uL (0.11-0.8); Monocytes % 9.5 % (1.7-12.7); Neutrophils % 71.6 % (38.7-73.9); Platelet Count 326 T/CUMM (130-400); Red Blood Count 3.88 MC/CUMM (3.8-5.5); Red Cell Distribution Width 15.6 % (9.3-17.3); White Blood Count 8.4 T/CUMM (4-12)
[2021-08-13 06:18] LABS: Calcium 8.6 MG/DL (8.5-10.1); Osmolality,Calculated 265.5 MOS/KG (273-304); Potassium 4.8 MMOL/L (3.5-5.1)
[2021-08-13 06:25] LABS: Polychromasia Few; Tear Drop Cells Few
[2021-08-13 06:26] LABS: Ovalocytes Few
[2021-08-13 06:27] LABS: Platelet Estimate Normal
[2021-08-13] MEDS: LINACLOTIDE 145 MCG CAPSULE PO SCH (07:34)
[2021-08-13] MEDS: INSULIN REGULAR 100 UNIT/ML SUBCUT SCH ×4 (07:54→21:34)
[2021-08-13] MEDS: SODIUM CHLORIDE 0.9% 1,000 ML IV SCH ×3 (07:56→18:10)
[2021-08-13] MEDS: carvediloL 25 MG TABLET PO SCH ×2 (09:04→18:04)
[2021-08-13] MEDS: DIGOXIN 0.25 MG TABLET PO SCH (09:05)
[2021-08-13] MEDS: FUROSEMIDE 80 MG TABLET PO SCH ×2 (09:05→15:48)
[2021-08-13] MEDS ORDERED: DIAZEPAM 5 MG TABLET PO ONE (09:22)
[2021-08-13] MEDS: DOCUSATE SODIUM 100 MG CAPSULE PO SCH ×2 (12:54→21:35)
[2021-08-13] MEDS: LACTULOSE 20 GM/30 ML UDCUP PO SCH ×2 (12:54→21:34)
[2021-08-13] MEDS: LUBIPROSTONE 8 MCG CAPSULE PO SCH ×2 (12:54→21:34)
[2021-08-13] MEDS: ASPIRIN EC 81 MG TABLET PO SCH (12:54)
[2021-08-13] MEDS: MAGNESIUM OXIDE 400 MG TABLET PO SCH (12:55)
[2021-08-13] MEDS: PANTOPRAZOLE 40 MG TABLET PO SCH (12:56)
[2021-08-13] MEDS: BUDESONIDE/FORMOTEROL 80-4.5 INHALER 6.9 GM INH SCH ×2 (12:56→21:35)
[2021-08-13] MEDS: POLYETHYLENE GLYCOL POWDER 17 GM PACK PO SCH ×2 (12:56→21:34)
[2021-08-13] MEDS: cefTRIAXone 2,000 MG in SODIUM CHLORIDE 0.9% 100 ML IV SCH (13:07)
[2021-08-13] MEDS: PIPERACILLIN/TAZOBACTAM 3,375 MG in SODIUM CHLORIDE 0.9% 100 ML IV SCH (18:28)
[2021-08-13] MEDS: ENOXAPARIN 40 MG/0.4 ML SYRINGE SUBCUT SCH (21:34)
[2021-08-14] MEDS: HYDROmorphone 1 MG/1 ML SYRINGE IV PRN (03:32)
[2021-08-14] MEDS: ONDANSETRON 4 MG/2 ML VIAL IV PRN (03:32)
[2021-08-14 08:31] LABS: Basophils % 0.2 % (0.0-0.8); Eosinophils % 0.9 % (0.00-10.9); Hematocrit 39.1 VOL% (35.7-47.0); Hemoglobin 12.2 GM/DL (12.0-16.0); Immature Granulocytes % 1.1 %; Immature Granulocytes Absolute 0.05 #; Lymphocytes # 1.1 10*3/uL (1.4-4.0); Lymphocytes % 23.7 % (21.3-54.2); Mean Corpuscular HGB Conc 31.2 GM/DL (32-36); Mean Platelet Volume 11.1 FL (9.6-12.0); Monocytes # 0.5 10*3/uL (0.11-0.8); Monocytes % 9.8 % (1.7-12.7); Neutrophils % 64.3 % (38.7-73.9); Platelet Count 278 T/CUMM (130-400); Red Blood Count 4.25 MC/CUMM (3.8-5.5); Red Cell Distribution Width 15.9 % (9.3-17.3); White Blood Count 4.7 T/CUMM (4-12)
[2021-08-14 08:46] LABS: Calcium 8.7 MG/DL (8.5-10.1); Potassium 4.3 MMOL/L (3.5-5.1)
[2021-08-14 12:26] VITALS: BP 147/102
[2021-08-14] MEDS: INSULIN REGULAR 100 UNIT/ML SUBCUT SCH (12:58)
[2021-08-14] MEDS: LINACLOTIDE 145 MCG CAPSULE PO SCH (13:04)
[2021-08-14] MEDS: LUBIPROSTONE 8 MCG CAPSULE PO SCH (13:04)
[2021-08-14] MEDS: ASPIRIN EC 81 MG TABLET PO SCH (13:04)
[2021-08-14] MEDS: LACTULOSE 20 GM/30 ML UDCUP PO SCH (13:04)
[2021-08-14] MEDS: carvediloL 25 MG TABLET PO SCH (13:04)
[2021-08-14] MEDS: FUROSEMIDE 80 MG TABLET PO SCH (13:04)
[2021-08-14] MEDS: DOCUSATE SODIUM 100 MG CAPSULE PO SCH (13:04)
[2021-08-14] MEDS: MAGNESIUM OXIDE 400 MG TABLET PO SCH (13:05)
[2021-08-14] MEDS: BUDESONIDE/FORMOTEROL 80-4.5 INHALER 6.9 GM INH SCH (13:05)
[2021-08-14] MEDS: DIGOXIN 0.25 MG TABLET PO SCH (13:05)
[2021-08-14] MEDS: POLYETHYLENE GLYCOL POWDER 17 GM PACK PO SCH (13:05)
[2021-08-14] MEDS: PANTOPRAZOLE 40 MG TABLET PO SCH (13:05)
[2021-08-14] MEDS: cefTRIAXone 2,000 MG in SODIUM CHLORIDE 0.9% 100 ML IV SCH (13:47)
[2021-08-15] MEDS ORDERED: CEFDINIR 300 MG CAPSULE PO SCH (09:00)
== END 2021-08-14 15:41 | disposition home health service (06) | DRG 862 ==
LOC: N.ED 04:12 → N.5E 07:33 → SUATTDRO 07:33 → N.5E 08:57
PROVIDERS: ADMIT Internal Medicine; ATTEND Hospitalist